=== PATIENT | male | born 1970 | race Caucasian/White ===

== ENCOUNTER 2021-07-26 13:41 | Inpatient (IN) | payer MEDICARE, MEDICAID, SELFPAY ==
[2021-07-26] VITALS (13 sets, daily range): BP systolic 84–116; BP diastolic 54–75; PULSE 87–114; RESP 13–24; TEMP 36.9–38.8; O2SAT 93–98; BMI 33.8
--- NOTE | ~2021-07-26 | CT_ITS ---
EXAMINATION: CT ABDOMEN AND PELVIS WITHOUT CONTRAST CLINICAL INFORMATION: History of right buttock abscess COMPARISON: CT pelvis 08/13/2020 TECHNIQUE: Multidetector volumetric imaging was performed from the superior aspect of the liver through the pubic symphysis. Sagittal and coronal reformatted images were obtained on the technologist's workstation. This CT examination was performed using dose optimization techniques as appropriate, variously including the following: *Automated exposure control *Adjustment of mA and/or kV according to patient size (this includes techniques or standardized protocols for targeted exams where dose is matched to indication/reason for exam; i.e. extremities or head) *Use of iterative reconstruction technique DLP: 1894 mGy-cm FINDINGS: LUNG BASES: Limited visualization. There may be central bronchial wall thickening in the left lower lobe. LIVER, GALLBLADDER, AND BILIARY TREE: The noncontrast liver is unremarkable in appearance. There is trace fat stranding along the inferior aspect of the liver. The gallbladder is unremarkable. No radiopaque calculi or obvious pericholecystic inflammatory changes. No evidence of biliary ductal dilation. PANCREAS: Unremarkable. SPLEEN: Unremarkable. ADRENAL GLANDS: Unremarkable. KIDNEYS AND URETERS: There are a few small nonobstructive calculi in the lower pole of the left kidney. They are approximately 0.3 to 0.4 cm in size. There is no hydronephrosis or hydroureter. No focal parenchymal thinning. No perinephric stranding. BLADDER: There is a tiny 0.3 cm calcification layering in the bladder. It may not have been present on the prior CT, although on the prior study the bladder was decompressed with a Vaz catheter in place, limiting evaluation. Currently, the bladder is moderately distended and is otherwise unremarkable. GASTROINTESTINAL TRACT: There is no abnormal small bowel dilation. There is no obvious pericolonic inflammatory change. There is moderate scattered stool in the colon, and a fair amount of stool within the rectum. The transverse rectal diameter is approximately 6 cm. There is no evidence of pneumoperitoneum. The appendix is unremarkable. ABDOMINAL WALL: No significant hernia is appreciated. LYMPH NODES: There is no evidence of bulky mesenteric or retroperitoneal lymphadenopathy. VASCULAR: The abdominal aorta is normal in caliber. PELVIC VISCERA: Detailed evaluation is limited by beam hardening artifact from bilateral femoral surgical hardware. No pelvic free fluid or fluid collection is seen. OSSEOUS STRUCTURES: The most peripheral portion of the right gluteal region is not within the [id number]. There may be a small focus of soft tissue stranding at the right hip reaching. There is no evidence of a deep focal fluid collection. No acute osseous abnormality is seen. Again seen is postsurgical changes within the bilateral proximal femurs with surgical hardware in place. There is extensive heterotopic ossification along the right femoral shaft. There are severe degenerative changes of both hips. Multilevel degenerative changes of the spine. CT/CT abdomen pelvis wo con IMPRESSION: No definite acute abnormality within the abdomen and pelvis. Trace fat stranding along the inferior aspect of the liver is of uncertain etiology or clinical significance. There does appear to be focal soft tissue stranding in the region of the right hip. This is fairly superficial. There is no evidence of a discrete deep fluid collection. Small nonobstructive calculi in the lower pole of the left kidney. There appears to be a small calculus within the bladder as well. Moderate rectal stool burden.
--- NOTE | ~2021-07-26 | CT_ITS ---
EXAMINATION: CT ANGIOGRAM NECK WITH CONTRAST CT ANGIOGRAM BRAIN WITH CONTRAST CLINICAL INFORMATION: Altered mental status. COMPARISON: Noncontrast head CT performed just earlier. TECHNIQUE: Test bolus sequences followed by intravenous administration 70 mL of Omnipaque 350. Helical imaging was performed in the axial plane from the thoracic inlet to the skull vertex. Delayed postcontrast imaging of the head was also performed. The data was processed at the space technologist workstation for generation of MIP sequences. Angled MIPs and volume rendered reformatted images were also generated at an offline 3D workstation. Stenoses are assessed in accordance with NASCET criteria unless otherwise indicated. This CT examination was performed using dose optimization techniques as appropriate, variously including the following: *Automated exposure control *Adjustment of mA and/or kV according to patient size (this includes techniques or standardized protocols for targeted exams where dose is matched to indication/reason for exam; i.e. extremities or head) *Use of iterative reconstruction technique DLP: 1909 mGy-cm FINDINGS: Head CT: On the postcontrast images, there is no intracranial hemorrhage, extra-axial collection, mass effect, or CT evidence of territorial infarction. There is chronic infarct within the right lateral basal ganglia and subinsular region in addition to chronic infarction in the right temporal lobe. There is ex vacuo dilatation of the right lateral ventricle inclusive of the frontal horn and temporal horn. Some asymmetric right-sided cerebral hemisphere volume loss is also present involving the frontal, parietal, and temporal lobes. Asymmetric right cerebellar volume loss is also present. No enhancing lesion is seen. The dural venous sinuses are normally opacified. There is chronic deformity of the nasal bones. Postoperative changes are seen involving the left frontozygomatic suture. Neck CTA: The aortic arch and great vessel origins are patent. The bilateral common and internal carotid arteries are patent. No significant stenosis is seen at the carotid bifurcations. The bilateral cervical ICA segments are both patent. The bilateral vertebral arteries are patent. Head CTA: The vertebrobasilar system is patent. The bilateral esthetician facialist are patent. The intracranial segments of the ICAs are patent. The ACAs are patent. The bilateral MCAs are patent and demonstrate symmetric collaterals. No intracranial aneurysm is seen. Non-vascular findings: The cervical soft tissues are within normal limits. The cervical spine demonstrates scoliotic curvature. CT/CT angio head neck IMPRESSION: CT head: No intracranial hemorrhage or large acute infarction. Chronic infarction seen within the right lateral basal ganglia and subinsular region in addition to the right temporal lobe. Ex vacuo dilatation of the right lateral ventricle. Chronic asymmetric atrophy of the right cerebral and cerebellar hemispheres. CTA neck: No hemodynamically significant stenosis in the major arteries of the neck. CTA head: No large vessel occlusion or significant stenosis within the intracranial circulation.
--- NOTE | ~2021-07-26 | CT_ITS ---
EXAMINATION: CT HEAD WITHOUT CONTRAST CLINICAL INFORMATION: Altered mental status COMPARISON: None TECHNIQUE: Contiguous axial imaging was performed from the skull base to vertex without intravenous administration of contrast. This CT examination was performed using dose optimization techniques as appropriate, variously including the following: *Automated exposure control *Adjustment of mA and/or kV according to patient size (this includes techniques or standardized protocols for targeted exams where dose is matched to indication/reason for exam; i.e. extremities or head) *Use of iterative reconstruction technique DLP: 1047 mGy-cm FINDINGS: Requested by PSA to review the CT head study at 1416 hours on July 26, 2021. There is hypodensity and volume loss in the right temporal lobe, with ex vacuo dilatation of the right ventricle temporal horn, having the appearance of the chronic infarct. Old infarct in the region of the right basal ganglia/external capsule, with ex vacuo dilatation of the right lateral ventricle. There is no evidence of acute intracranial hemorrhage. Question Subtle low attenuation and loss of bradford-white matter differentiation in the inferior left frontal lobe,, left parasagittal frontal lobe, the left parietotemporal lobe. Subtle loss of bradford-white matter differentiation in the left occipital lobe. Acute infarction in these regions cannot be excluded.. No abnormal mass effect or midline shift is seen. No extra-axial fluid collections are identified. Asymmetric prominence of the right ventricle.. No acute calvarial fracture. The mastoid air cells and visualized portions of the paranasal sinuses are well aerated. CT/CT head/brain wo con IMPRESSION: 1. Question subtle hypodensity with subtle loss of bradford-white matter differentiation in the left frontal lobe, left parietotemporal lobe, and in the left occipital lobe. Acute infarction cannot be excluded.. Recommend close clinical correlation and management.. Further evaluation with CTA head, MRI is recommended. 2. No evidence of acute intracranial hemorrhage. No extra-axial fluid collections. 3. 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 This critical result was discussed with NEVILLE Murray at 1424 hours on 07/26/2021 and it was ascertained that the content and urgency of the report was understood at the time of direct communication.
--- NOTE | ~2021-07-26 | XR_ITS ---
EXAMINATION: XR CHEST CLINICAL INFORMATION: Altered mental status. COMPARISON: X-ray 08/13/2020 TECHNIQUE: Frontal view of the chest was obtained. FINDINGS: Suboptimal positioning limits evaluation. Rotated positioning. Cardiac mediastinal silhouette is stable, allowing for difference in technique. Low lung volumes. There is left basilar/retrocardiac opacity. There is a hazy opacity right lung base. These findings could be related to overlapping densities versus airspace disease/effusion. XR/XR chest 1V IMPRESSION: Right basilar airspace opacity. Left basilar/retrocardiac airspace opacity. These findings could be related to overlapping densities, or represent airspace disease, effusion, or a combination of these. This can be further evaluated with frontal and lateral radiographs, or chest CT as clinically warranted.
--- NOTE | 2021-07-26 13:52 | ECG_ITS ---
Test Reason : ?STROKE Blood Pressure : / mmHG Vent. Rate : 107 BPM Atrial Rate : 107 BPM P-R Int : 166 ms QRS Dur : 084 ms QT Int : 352 ms P-R-T Axes : 012 -15 011 degrees QTc Int : 469 ms Sinus tachycardia Otherwise normal ECG When compared with ECG of 13-AUG-2020 10:20, No significant change was found Referred By: Benita Kelley Electronically Signed By:LEONORA GARCIA
--- NOTE | 2021-07-26 13:57 | ED.AMS ---
HPI - Altered Mental Status General Chief Complaint: Stroke Stated Complaint: stoke alert Time Seen by Provider: 07/26/21 13:48 Source: patient, EMS and old records reviewed Mode of arrival: EMS Limitations: altered mental status History of Present Illness MD complaint: altered mental status, confusion and decreased responsiveness Onset (ago): hour(s) (staff is not sure, stated he was lethargic and mumbling at 730am and got worse) Timing confirmed by: caregiver Consistency of symptoms: getting Worse Context: recent fever Associated symptoms: denies other symptoms Treatments prior to arrival: other (tylenol at 12pm) Related Data Allergies Allergy/AdvReac Type Severity Reaction Status Date / Time No Known Allergies* Allergy Uncoded 08/13/20 10:20 Review of Systems Review of Systems: ROS unable to be obtained due to altered mental status PMFSH Past Medical History Attestation statement: The following information was validated with the patient. Medical History (Updated 07/26/21 @ 16:09 by Benita Kelley DO) Abscess Chronic pain syndrome COPD (chronic obstructive pulmonary disease) Obesity Schizophrenia TBI (traumatic brain injury) Social History Social History (Updated 07/26/21 @ 14:18 by Benita Kelley DO) Patient Tobacco Use Status: Tobacco use Unknown Use of substances other than those prescribed or required for medical reasons: No Advance Directives: No Physical Exam Vital Signs: Vital Signs: Last Vital Signs Temp 100.1 F 07/26/21 16:19 Pulse 108 H 07/26/21 16:16 Resp 13 07/26/21 16:16 BP 102/70 07/26/21 16:16 Pulse Ox 97 07/26/21 16:16 Body Mass Index 33.8 Appearance: Somnolent, lethargic, smiles and says yes . Mild acute distress. Eyes: Pupils equal, round and reactive to light. ENT: Pharynx dry MM Neck: Normal inspection. Neck supple. CVS: tachycardic heart rate and rhythm. Pulses normal. Respiratory: No respiratory distress. Breath sounds decreased at bases Abdomen: Soft and non-tender. Skin: Skin warm and dry. Normal skin color. R posterior thigh and buttock erythema noted Extremities: No lower extremity edema. hyperpigmented dark areas on shins R BUTTOCKS WARM ERYTHEMATOUS TENDER AREA - NO MASS OR FLUCTUANCE FELT Neuro: Cannot fully participate in exam. No motor deficit. No sensory deficit. NIH Stroke Scale Internal: Initial- Upon Arrival Level of Consciousness: Not Alert; but arousable by minor stimulation Level of Consciousness Questions: Answers one question correctly Level of Consciousness Commands: Performs neither task correctly Best Gaze: Normal Visual: No visual loss Facial Palsy: Normal Motor Arm (Right): Drift Motor Arm (Left): Drift Motor Leg (Right): Drift Motor Leg (Left): Drift Limb Ataxia: Present in one limb Sensory: Normal Best Language: Mild to moderate aphasia Dysarthia: Mild to moderate dysarthria Extinction and Inattention: Visual, tactile, auditory, spatial, or personal inattention Score: 12 Course Course Course Narrative: NIH was very hard to perform at this time due to TBI - likely baseline findings R hip/buttock area concerning for cellulitis and given fevers started on empiric vancomycin and zosyn signed out to Dr. De La Rosa pending CTA 421pm MDM - Altered Mental Status MDM Narrative Medical decision making narrative: 50 yo male with TBI, schizophrenia, LOVE< COPD prior buttock abscess sent for fevers and tachycardia at [facility] - EMS called stroke alert but I cannot find any localizing or consistesnt focal deficits. His last known well ?730am but SNF staff is not sure because of this he is not a candidate for tPa. Labs, cultures, CXR, tylenol, CT scan of head/abdomen pelvis for infection, UA, CXR, empiric abx Lab Data Result diagrams: 07/26/21 14:56 07/26/21 14:56 Labs: Lab Results 07/26/21 07/26/21 07/26/21 Range/Units 13:55 14:42 14:50 WBC (4.8-10.8) X10*3/uL RBC (4.60-5.80) X10*6/uL Hgb (14.0-18.0) g/dl Hct (42-52) % MCV (80-98) fL MCH (27.0-33.0) pg MCHC (31.0-36.0) g/dl RDW (11.0-16.0) % Plt Count (160-400) X10*3/uL MPV (9.4-12.4) fL Immature Gran % (Auto) (0.0-0.4) % Neut % (Auto) (45-73) % Lymph % (Auto) (20-40) % [place] % (Auto) (2-11) % Eos % (Auto) (0-4) % Baso % (Auto) (0-2) % Lymph # (Auto) (1.2-4.9) X10*3/uL [place] # (Auto) (0.1-1.2) X10*3/uL Eos # (Auto) (0.0-0.4) X10*3/uL Baso # (Auto) (0.0-0.2) X10*3/uL Abs Immat Gran (auto) (0.00-0.03) X10*3/uL Absolute Neuts (auto) (2.0-8.3) X10*3/uL Absolute Nucleated RBC (0.0-0.012) X10*3/uL Nucleated RBC % (auto) (0.0-0.2) /100WBC PT 16.9 H (9.9-13.0) SEC Whole Blood PT 14.6 H (11.1-13.5) sec INR 1.5 H (0.9-1.1) Whole Blood INR 1.2 H (0.9-1.1) APTT 29.0 (24.1-38.0) SEC VBG pH (7.32-7.43) VBG pCO2 mmHg VBG pO2 mmHg VBG HCO3 (22-26) mmol/L VBG O2 Saturation % VBG Base Excess mmol/L Sodium (135-145) mmol/L Potassium (3.3-5.1) mmol/L Chloride (96-108) mmol/L Carbon Dioxide (22-29) mmol/L Anion Gap (12-20) BUN (9-16) mg/dL Creatinine (0.5-1.4) mg/dL Estim Creat Clear Calc Estimated GFR Random Glucose (60-115) mg/dL Lactic Acid (0.5-2.0) mmol/L Calcium (8.4-10.2) mg/dL Magnesium (1.6-2.6) mg/dL Total Bilirubin (0.0-1.0) mg/dL Direct Bilirubin (0.0-0.5) mg/dL AST (5-37) U/L ALT (0-40) U/L Alkaline Phosphatase (39-117) U/L Ammonia (13-55) umol/L Total Creatine Kinase (38-174) U/L Troponin I High Sens (<3.5-35.0) ng/L Total Protein (6.5-8.0) g/dL Albumin (3.5-5.0) g/dL COVID-19 ([facility]) Negative (Negative) COVID-19 Clin Com See Note 07/26/21 07/26/21 07/26/21 Range/Units 14:56 14:56 14:56 WBC 15.6 H (4.8-10.8) X10*3/uL RBC 5.42 (4.60-5.80) X10*6/uL Hgb 14.0 (14.0-18.0) g/dl Hct 43.4 (42-52) % MCV 80.1 (80-98) fL MCH 25.8 L (27.0-33.0) pg MCHC 32.3 (31.0-36.0) g/dl RDW 13.9 (11.0-16.0) % Plt Count 219 (160-400) X10*3/uL MPV 9.0 L (9.4-12.4) fL Immature Gran % (Auto) 0.4 (0.0-0.4) % Neut % (Auto) 84.6 H (45-73) % Lymph % (Auto) 7.1 L (20-40) % [place] % (Auto) 7.7 (2-11) % Eos % (Auto) 0.1 (0-4) % Baso % (Auto) 0.1 (0-2) % Lymph # (Auto) 1.1 L (1.2-4.9) X10*3/uL [place] # (Auto) 1.2 (0.1-1.2) X10*3/uL Eos # (Auto) 0.0 (0.0-0.4) X10*3/uL Baso # (Auto) 0.0 (0.0-0.2) X10*3/uL Abs Immat Gran (auto) 0.07 H (0.00-0.03) X10*3/uL Absolute Neuts (auto) 13.2 H (2.0-8.3) X10*3/uL Absolute Nucleated RBC 0.000 (0.0-0.012) X10*3/uL Nucleated RBC % (auto) 0.0 (0.0-0.2) /100WBC PT (9.9-13.0) SEC Whole Blood PT (11.1-13.5) sec INR (0.9-1.1) Whole Blood INR (0.9-1.1) APTT (24.1-38.0) SEC VBG pH (7.32-7.43) VBG pCO2 mmHg VBG pO2 mmHg VBG HCO3 (22-26) mmol/L VBG O2 Saturation % VBG Base Excess mmol/L Sodium 140 (135-145) mmol/L Potassium 4.2 (3.3-5.1) mmol/L Chloride 106 (96-108) mmol/L Carbon Dioxide 25 (22-29) mmol/L Anion Gap 13 (12-20) BUN 15 (9-16) mg/dL Creatinine 0.80 (0.5-1.4) mg/dL Estim Creat Clear Calc 143.5 Estimated GFR > 60 Random Glucose 112 (60-115) mg/dL Lactic Acid 1.7 (0.5-2.0) mmol/L Calcium 9.1 (8.4-10.2) mg/dL Magnesium 1.9 (1.6-2.6) mg/dL Total Bilirubin 0.6 (0.0-1.0) mg/dL Direct Bilirubin 0.3 (0.0-0.5) mg/dL AST 48 H (5-37) U/L ALT 57 H (0-40) U/L Alkaline Phosphatase 194 H (39-117) U/L Ammonia (13-55) umol/L Total Creatine Kinase 49 (38-174) U/L Troponin I High Sens (<3.5-35.0) ng/L Total Protein 7.2 (6.5-8.0) g/dL Albumin 4.1 (3.5-5.0) g/dL COVID-19 ([facility]) (Negative) COVID-19 Clin Com 07/26/21 07/26/21 07/26/21 Range/Units 14:56 14:56 15:04 WBC (4.8-10.8) X10*3/uL RBC (4.60-5.80) X10*6/uL Hgb (14.0-18.0) g/dl Hct (42-52) % MCV (80-98) fL MCH (27.0-33.0) pg MCHC (31.0-36.0) g/dl RDW (11.0-16.0) % Plt Count (160-400) X10*3/uL MPV (9.4-12.4) fL Immature Gran % (Auto) (0.0-0.4) % Neut % (Auto) (45-73) % Lymph % (Auto) (20-40) % [place] % (Auto) (2-11) % Eos % (Auto) (0-4) % Baso % (Auto) (0-2) % Lymph # (Auto) (1.2-4.9) X10*3/uL [place] # (Auto) (0.1-1.2) X10*3/uL Eos # (Auto) (0.0-0.4) X10*3/uL Baso # (Auto) (0.0-0.2) X10*3/uL Abs Immat Gran (auto) (0.00-0.03) X10*3/uL Absolute Neuts (auto) (2.0-8.3) X10*3/uL Absolute Nucleated RBC (0.0-0.012) X10*3/uL Nucleated RBC % (auto) (0.0-0.2) /100WBC PT (9.9-13.0) SEC Whole Blood PT (11.1-13.5) sec INR (0.9-1.1) Whole Blood INR (0.9-1.1) APTT (24.1-38.0) SEC VBG pH 7.38 (7.32-7.43) VBG pCO2 43 mmHg VBG pO2 54 mmHg VBG HCO3 26 (22-26) mmol/L VBG O2 Saturation 84.0 % VBG Base Excess 0.7 mmol/L Sodium (135-145) mmol/L Potassium (3.3-5.1) mmol/L Chloride (96-108) mmol/L Carbon Dioxide (22-29) mmol/L Anion Gap (12-20) BUN (9-16) mg/dL Creatinine (0.5-1.4) mg/dL Estim Creat Clear Calc Estimated GFR Random Glucose (60-115) mg/dL Lactic Acid (0.5-2.0) mmol/L Calcium (8.4-10.2) mg/dL Magnesium (1.6-2.6) mg/dL Total Bilirubin (0.0-1.0) mg/dL Direct Bilirubin (0.0-0.5) mg/dL AST (5-37) U/L ALT (0-40) U/L Alkaline Phosphatase (39-117) U/L Ammonia 37 (13-55) umol/L Total Creatine Kinase (38-174) U/L Troponin I High Sens 4.8 (<3.5-35.0) ng/L Total Protein (6.5-8.0) g/dL Albumin (3.5-5.0) g/dL COVID-19 ([facility]) (Negative) COVID-19 Clin Com ECG Data ECG #1: Attestation: I personally reviewed and interpreted this ECG as follows: ECG interpretation date: 07/26/21 ECG interpretation time: 15:35 Interpretation: Rate: 107 Rhythm: sinus tachycardia [place]: left Normal P waves. Normal JASON. Normal QRS complex. ST T wave : nonspecific, no FOX qTC: normal prior studies: no acute ischemia The study has been interpreted contemporaneously by me. . Discharge Plan Discharge Clinical Impression: Fever Qualifiers: Fever type: unspecified Qualified Code(s): R50.9 - Fever, unspecified Cellulitis Qualifiers: Site of cellulitis: buttock Qualified Code(s): L03.317 - Cellulitis of buttock Pneumonia Qualifiers: Pneumonia type: due to unspecified organism Laterality: bilateral Lung location: unspecified part of lung Qualified Code(s): J18.9 - Pneumonia, unspecified organism Patient Disposition: Admitted As Inpatient
[2021-07-26 13:58] LABS: Prothrombin Time Whole Bld POC 14.6 sec (11.1-13.5); ~PT, ~INR - Anti Coag Clinic 1.2 (0.9-1.1)
[2021-07-26] MEDS: Acetaminophen 325 MG TABLET 650 MG PO (15:00)
[2021-07-26] MEDS: 0.9 % Sodium Chloride 1,000 ML 999 ML IVCONT ×2 (15:01→18:29)
[2021-07-26] MEDS: 0.9 % Sodium Chloride 1,000 ML 999 ML IV (15:02)
[2021-07-26 15:03] LABS: MANUAL DIFF FLAG NO
[2021-07-26 15:07] LABS: Basophils Percent Auto 0.1 % (0-2); Eosinophils Percent Auto 0.1 % (0-4); Hematocrit 43.4 % (42-52); Imm Gran Abs Auto 0.07 X10*3/uL (0.00-0.03); Imm Gran Pct Auto 0.4 % (0.0-0.4); Lymphocytes Absolute Auto 1.1 X10*3/uL (1.2-4.9); Lymphocytes Percent Auto 7.1 % (20-40); Mean Corpuscular HGB Conc 32.3 g/dl (31.0-36.0); Mean Corpuscular Hemoglobin 25.8 pg (27.0-33.0); Mean Corpuscular Volume 80.1 fL (80-98); Monocytes Absolute Auto 1.2 X10*3/uL (0.1-1.2); Monocytes Percent Auto 7.7 % (2-11); Neutrophils Absolute Auto 13.2 X10*3/uL (2.0-8.3); Neutrophils Percent Auto 84.6 % (45-73); Platelet Count 219 X10*3/uL (160-400); Red Blood Count 5.42 X10*6/uL (4.60-5.80); Red Cell Distribution Width 13.9 % (11.0-16.0); White Blood Count 15.6 X10*3/uL (4.8-10.8)
[2021-07-26 15:10] LABS: VBG Base Excess 0.7 mmol/L; VBG HCO3 26 mmol/L (22-26); VBG pCO2 43 mmHg; VBG pH 7.38 (7.32-7.43); VBG pO2 54 mmHg
[2021-07-26 15:10] LABS: Venous Blood Gas Refer to POC result
[2021-07-26] MEDS: Piperacillin Sodium/Tazobactam 3.375 GM in 0.9 % Sodium Chloride 50 ML IV (15:10)
[2021-07-26 15:11] LABS: INTERNATIONAL NORM RATIO 1.5 (0.9-1.1); Prothrombin Time 16.9 SEC (9.9-13.0)
[2021-07-26 15:19] LABS: Ammonia 37 umol/L (13-55)
[2021-07-26 15:22] LABS: Lactic Acid 1.7 mmol/L (0.5-2.0)
[2021-07-26 15:28] LABS: Alanine Aminotransferase 57 U/L (0-40); Albumin Level 4.1 g/dL (3.5-5.0); Alkaline Phosphatase 194 U/L (39-117); Anion Gap 13 (12-20); Aspartate Amino Transferase 48 U/L (5-37); Bilirubin Direct 0.3 mg/dL (0.0-0.5); Bilirubin Total 0.6 mg/dL (0.0-1.0); Blood Urea Nitrogen 15 mg/dL (9-16); Calcium 9.1 mg/dL (8.4-10.2); Carbon Dioxide 25 mmol/L (22-29); Chloride 106 mmol/L (96-108); Creatinine Clr Calc Pharmacy 143.5; Estimated Glomerular Filt Rate > 60; Glucose Random 112 mg/dL (60-115); Magnesium 1.9 mg/dL (1.6-2.6); Potassium 4.2 mmol/L (3.3-5.1); Sodium 140 mmol/L (135-145); Total Protein 7.2 g/dL (6.5-8.0)
[2021-07-26 15:32] LABS: Troponin-I High Sensitivity 4.8 ng/L (<3.5-35.0)
[2021-07-26] MEDS: vancomycin HCL 1,500 MG in 0.9 % Sodium Chloride 500 ML 333.33 MG IV (15:40)
[2021-07-26 15:43] LABS: COVID-19 Test Negative (Negative); IDNOW Serial# 9DD0AD1C
--- NOTE | 2021-07-26 16:18 | PC.NURSE ---
pt R hip.thigh warm and red pt rectal temp 101.8 given PO tylenol rectal temp at 1615 down to 100.1
[2021-07-26] MEDS: iohexoL 350 MG/ML 100 ML INFUS..BTL IV (17:30)
--- NOTE | 2021-07-26 18:17 | PC.NURSE ---
Dr Dean aware of bp 84/60
--- NOTE | 2021-07-26 19:18 | PC.NURSE ---
pt incontinent of urine and stool. 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
--- NOTE | 2021-07-26 20:35 | PM.IMHP ---
History of Present Illness Date of Service: 07/26/21 Chief Complaint: Altered mental status This is a 50-year-old male with past medical history of COPD, schizophrenia, TBI, obesity, chronic pain syndrome who [facility] and is chronically bedbound per report, presents to the hospital after staff at [facility] found him to be less responsive and confused. Patient is a poor historian and is not answering questions appropriately. When asked about pain he points to his right hip. He answers no to any questions involving any other symptoms. Therefore history is obtained mostly from ED physician. According to the ED physician patient underwent workup in the ED and was found to be febrile with a temperature of 101.8, patient also developed hypotension with blood pressure dropping to 84/60. Patient was started on IV antibiotics and resuscitated with IV fluids. Workup revealed cellulitis of the left hip and bilateral pneumonia with negative COVID test. Flu vitals initially showed a temp of 101.8?, heart rate of 114, respiratory rate of 20, blood pressure initially was 116/70 that dropped to 84/60, satting 94% on room air Labs revealed WBC count of 15.6, AST of 48, ALT of 57, alk phos of 194, COVID-19 negative. No definite acute abnormality within the abdomen and pelvis, focal soft tissue stranding in the region of the right hip. Fairly superficial with no evidence of discrete deep fluid collection. Chest x-ray shows right basilar airspace opacity as well as left basal are airspace opacity. Head and neck CT angiogram shows no intracranial hemorrhage or large acute infarction, chronic infarction seen within the right lateral basal ganglia and sub insular region in addition to the right temporal lobe. No hemodynamic significant stenosis in the major arteries of the neck. Past medical history per EMR Review of Systems Review of Systems: Yes Unobtainable due to mental status [facility] Medical History Abscess Chronic pain syndrome COPD (chronic obstructive pulmonary disease) Obesity Schizophrenia TBI (traumatic brain injury) Social History Patient Tobacco Use Status: Tobacco use Unknown Use of substances other than those prescribed or required for medical reasons: No Advance Directives: No Meds Allergies Allergy/AdvReac Type Severity Reaction Status Date / Time No Known Allergies* Allergy Uncoded 08/13/20 10:20 Home Medications Medication Instructions Recorded Confirmed Last Taken Type acetaminophen 325 mg tablet 650 mg PO Q6H PRN 07/26/21 07/26/21 Unknown History (Tylenol) apixaban 2.5 mg tablet 2.5 mg PO BID 07/26/21 07/26/21 Unknown History atorvastatin 20 mg tablet (Lipitor) 20 mg PO BEDTIME 07/26/21 07/26/21 Unknown History benztropine 0.5 mg tablet 0.5 mg PO BID 07/26/21 07/26/21 Unknown History bisacodyl 10 mg rectal suppository 10 mg IA DAILY PRN 07/26/21 07/26/21 Unknown History diazepam 2 mg tablet 1 mg PO BID 07/26/21 07/26/21 Unknown History gabapentin 300 mg capsule 300 mg PO TID 07/26/21 07/26/21 Unknown History haloperidol 5 mg tablet 15 mg PO TID 07/26/21 07/26/21 Unknown History ibuprofen 200 mg tablet 200 mg PO Q6H PRN 07/26/21 07/26/21 Unknown History maltodextrin 1 ea PO 07/26/21 Unknown History metronidazole 0.75 % topical cream appl TOPICAL 07/26/21 Unknown History multivitamin 1 tab PO DAILY 07/26/21 07/26/21 Unknown History omeprazole 20 mg capsule,delayed 20 mg PO DAILY 07/26/21 07/26/21 Unknown History release oxcarbazepine 150 mg tablet 150 mg PO BID 07/26/21 07/26/21 Unknown History oxybutynin chloride 5 mg tablet 5 mg PO BID 07/26/21 07/26/21 Unknown History propranolol 10 mg tablet 10 mg PO TID 07/26/21 07/26/21 Unknown History sennosides 8.6 mg tablet (senna) 8.6 mg PO DAILY PRN 07/26/21 07/26/21 Unknown History Physical Exam Vital Signs and Narrative: Vital Signs: Last Vital Signs Temp 98.5 F 07/26/21 19:28 Pulse 96 07/26/21 19:28 Resp 14 07/26/21 19:28 BP 92/60 07/26/21 19:28 Pulse Ox 96 07/26/21 19:28 Body Mass Index 33.8 Const: Other: confused General: no acute distress Eyes: General: appearance normal, both eyes and all related structures Resp: Effort & Inspection: normal respiratory effort Cardio: Rate: regular rate Rhythm: regular rhythm GI: Palpation (GI): Soft to palpation Auscultation: normal bowel sounds Skin: Other: left pelvic regiuon erythema, warmth, tenderness, well healed scar extends frok hip to mid leg laterally Neuro: Other: Confused Extrem: Other: Poor hygiene of his feet, right hip scar that is well-healed General: Yes normal to inspection and Yes no pedal edema Results Labs CBC and Chem 7: 07/26/21 14:56 07/26/21 14:56 Labs: Laboratory Results - last 24 hr 07/26/21 07/26/21 07/26/21 13:55 14:42 14:50 MCV MCH MCHC RDW Plt Count MPV Immature Gran % (Auto) Neut % (Auto) Lymph % (Auto) [place] % (Auto) Eos % (Auto) Baso % (Auto) Lymph # (Auto) [place] # (Auto) Eos # (Auto) Baso # (Auto) Abs Immat Gran (auto) Absolute Neuts (auto) Absolute Nucleated RBC Nucleated RBC % (auto) PT 16.9 H Whole Blood PT 14.6 H INR 1.5 H Whole Blood INR 1.2 H APTT 29.0 VBG pH VBG pCO2 VBG pO2 VBG HCO3 VBG O2 Saturation VBG Base Excess Anion Gap Estim Creat Clear Calc Estimated GFR Random Glucose Lactic Acid Calcium Magnesium Total Bilirubin Direct Bilirubin AST ALT Alkaline Phosphatase Ammonia Total Creatine Kinase Troponin I High Sens Total Protein Albumin COVID-19 ([facility]) Negative COVID-19 Clin Com See Note 07/26/21 07/26/21 07/26/21 14:56 14:56 14:56 MCV 80.1 MCH 25.8 L MCHC 32.3 RDW 13.9 Plt Count 219 MPV 9.0 L Immature Gran % (Auto) 0.4 Neut % (Auto) 84.6 H Lymph % (Auto) 7.1 L [place] % (Auto) 7.7 Eos % (Auto) 0.1 Baso % (Auto) 0.1 Lymph # (Auto) 1.1 L [place] # (Auto) 1.2 Eos # (Auto) 0.0 Baso # (Auto) 0.0 Abs Immat Gran (auto) 0.07 H Absolute Neuts (auto) 13.2 H Absolute Nucleated RBC 0.000 Nucleated RBC % (auto) 0.0 PT Whole Blood PT INR Whole Blood INR APTT VBG pH VBG pCO2 VBG pO2 VBG HCO3 VBG O2 Saturation VBG Base Excess Anion Gap 13 Estim Creat Clear Calc 143.5 Estimated GFR > 60 Random Glucose 112 Lactic Acid 1.7 Calcium 9.1 Magnesium 1.9 Total Bilirubin 0.6 Direct Bilirubin 0.3 AST 48 H ALT 57 H Alkaline Phosphatase 194 H Ammonia Total Creatine Kinase 49 Troponin I High Sens Total Protein 7.2 Albumin 4.1 COVID-19 ([facility]) COVID-19 Clin Com 07/26/21 07/26/21 07/26/21 14:56 14:56 15:04 MCV MCH MCHC RDW Plt Count MPV Immature Gran % (Auto) Neut % (Auto) Lymph % (Auto) [place] % (Auto) Eos % (Auto) Baso % (Auto) Lymph # (Auto) [place] # (Auto) Eos # (Auto) Baso # (Auto) Abs Immat Gran (auto) Absolute Neuts (auto) Absolute Nucleated RBC Nucleated RBC % (auto) PT Whole Blood PT INR Whole Blood INR APTT VBG pH 7.38 VBG pCO2 43 VBG pO2 54 VBG HCO3 26 VBG O2 Saturation 84.0 VBG Base Excess 0.7 Anion Gap Estim Creat Clear Calc Estimated GFR Random Glucose Lactic Acid Calcium Magnesium Total Bilirubin Direct Bilirubin AST ALT Alkaline Phosphatase Ammonia 37 Total Creatine Kinase Troponin I High Sens 4.8 Total Protein Albumin COVID-19 ([facility]) COVID-19 Clin Com ECG Interpretation: Sinus tachycardia with a heart rate of 107, no other ST T wave changes Imaging Radiologist's Impressions: Impressions Head CT 07/26/21 13:48 IMPRESSION: 1. Question subtle hypodensity with subtle loss of bradford-white matter differentiation in the left frontal lobe, left parietotemporal lobe, and in the left occipital lobe. Acute infarction cannot be excluded.. Recommend close clinical correlation and management.. Further evaluation with CTA head, MRI is recommended. 2. No evidence of acute intracranial hemorrhage. No extra-axial fluid collections. 3. 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 This critical result was discussed with NEVILLE Murray at 1424 hours on 07/26/2021 and it was ascertained that the content and urgency of the report was understood at the time of direct communication. Abdomen/Pelvis CT 07/26/21 13:51 IMPRESSION: No definite acute abnormality within the abdomen and pelvis. Trace fat stranding along the inferior aspect of the liver is of uncertain etiology or clinical significance. There does appear to be focal soft tissue stranding in the region of the right hip. This is fairly superficial. There is no evidence of a discrete deep fluid collection. Small nonobstructive calculi in the lower pole of the left kidney. There appears to be a small calculus within the bladder as well. Moderate rectal stool burden. Chest X-Ray 07/26/21 13:52 IMPRESSION: Right basilar airspace opacity. Left basilar/retrocardiac airspace opacity. These findings could be related to overlapping densities, or represent airspace disease, effusion, or a combination of these. This can be further evaluated with frontal and lateral radiographs, or chest CT as clinically warranted. Head/Neck CTA 07/26/21 15:47 IMPRESSION: CT head: No intracranial hemorrhage or large acute infarction. Chronic infarction seen within the right lateral basal ganglia and subinsular region in addition to the right temporal lobe. Ex vacuo dilatation of the right lateral ventricle. Chronic asymmetric atrophy of the right cerebral and cerebellar hemispheres. CTA neck: No hemodynamically significant stenosis in the major arteries of the neck. CTA head: No large vessel occlusion or significant stenosis within the intracranial circulation. Assessment and Plan (1) Sepsis: Status: Acute (2) Cellulitis: Qualifiers: Site of cellulitis: buttock Qualified Code(s): L03.317 - Cellulitis of buttock Status: Acute (3) Pneumonia: Qualifiers: Laterality: bilateral Lung location: unspecified part of lung Pneumonia type: due to unspecified organism Qualified Code(s): J18.9 - Pneumonia, unspecified organism Status: Acute 50-year-old male with past medical history of TBI as well as schizophrenia who comes to the hospital with increased confusion, less responsiveness found to be septic # sepsis - febrile, tachycardia, leukocytosis, hypotensive - most likely multifactorial secondary to pneumonia as well as cellulitis of the left hip - patient received sepsis fluid, was given IV antibiotics in the ED - will continue IV antibiotics - follow cultures # community-acquired pneumonia - bilateral pneumonia with negative COVID - no hypoxia or tachypnea - will start him on IV antibiotics - follow cultures # cellulitis of the right hip - erythema, tenderness, warmth of the right hip - IV antibiotics as above - follow cultures in regards to his other meds, i called [facility] to get more info about pt, his past medical history and why his on the medications including apixaban and according to the nurse that knows him she does not have much information about him and unable to help me At this time will continue his apixaban as there is no contraindication to it as well as his other medications Quality Stroke Does the patient have a stroke diagnosis?: No VTE Prior VTE?: No VTE Risk Level:: Medical - moderate - high VTE Device Contraindication: Treatment Not Indicated VTE Drug Contraindication: N/A - Med Ordered
[2021-07-26] MEDS: OXcarbazepine 150 MG TABLET PO (22:03)
[2021-07-26] MEDS: HaloperidoL 5 MG TABLET 15 MG PO (22:03)
[2021-07-26] MEDS: Atorvastatin Calcium 20 MG TABLET PO (22:03)
[2021-07-26] MEDS: diazePAM 2 MG TABLET 1 MG PO (22:04)
[2021-07-26] MEDS: Benztropine Mesylate 0.5 MG TABLET PO (22:04)
[2021-07-26] MEDS: Gabapentin 300 MG CAPSULE PO (22:04)
[2021-07-26] MEDS: Apixaban 2.5 MG TABLET PO (22:04)
[2021-07-26] MEDS: Propranolol HCL 10 MG TABLET PO (22:04)
[2021-07-26] MEDS: cefTRIAXone sodium 1 GM in 0.9 % Sodium Chloride 50 ML IV (22:37)
[2021-07-26] MEDS: Azithromycin 500 MG in 0.9 % Sodium Chloride 250 ML 125 MG IV (23:33)
[2021-07-27] VITALS (10 sets, daily range): BP systolic 113–137; BP diastolic 55–100; PULSE 96–111; RESP 16–19; TEMP 36.4–36.8; O2SAT 95–98
--- NOTE | 2021-07-27 01:54 | PC.NURSE ---
Pt found in bed, incontinent of a large liquid BM. Per staff, pt has been having large loose BMs since his arrival. This RN contacting hospitalist regarding stool sample. This RN at bedside, providing pt with chava care and a complete bed change. Stool sample obtained and sent. Awaiting room assignment.
[2021-07-27 02:59] LABS: CDiff Gene PCR NEGATIVE (Negative)
[2021-07-27] MEDS: Omeprazole 20 MG CAPSULE.DR PO (05:49)
--- NOTE | 2021-07-27 05:52 | PC.NURSE ---
Pt resting in bed, medicated per JAN. Pt noted to be clean/dry at this time, provided with warm blankets per request. VSS at this time, awaiting bed assignment.
[2021-07-27] MEDS: 0.9 % Sodium Chloride Flush 3 ML SYRINGE IVFLUSH ×3 (08:45→23:37)
[2021-07-27 08:46] LABS: MANUAL DIFF FLAG NO
[2021-07-27 08:47] LABS: Basophils Percent Auto 0.1 % (0-2); Eosinophils Absolute Auto 0.3 X10*3/uL (0.0-0.4); Eosinophils Percent Auto 2.7 % (0-4); Hematocrit 38.4 % (42-52); Hemoglobin 12.2 g/dl (14.0-18.0); Imm Gran Abs Auto 0.03 X10*3/uL (0.00-0.03); Imm Gran Pct Auto 0.3 % (0.0-0.4); Lymphocytes Absolute Auto 0.9 X10*3/uL (1.2-4.9); Lymphocytes Percent Auto 9.5 % (20-40); Mean Corpuscular HGB Conc 31.8 g/dl (31.0-36.0); Mean Corpuscular Hemoglobin 25.7 pg (27.0-33.0); Mean Corpuscular Volume 80.8 fL (80-98); Monocytes Absolute Auto 0.5 X10*3/uL (0.1-1.2); Monocytes Percent Auto 5.7 % (2-11); Neutrophils Absolute Auto 7.5 X10*3/uL (2.0-8.3); Neutrophils Percent Auto 81.7 % (45-73); Platelet Count 175 X10*3/uL (160-400); Red Blood Count 4.75 X10*6/uL (4.60-5.80); Red Cell Distribution Width 13.8 % (11.0-16.0); White Blood Count 9.2 X10*3/uL (4.8-10.8)
[2021-07-27] MEDS: OXcarbazepine 150 MG TABLET PO ×2 (08:50→20:06)
[2021-07-27] MEDS: HaloperidoL 5 MG TABLET 15 MG PO ×3 (08:50→20:05)
[2021-07-27] MEDS: diazePAM 2 MG TABLET 1 MG PO ×2 (08:50→20:05)
[2021-07-27] MEDS: Apixaban 2.5 MG TABLET PO ×2 (08:50→20:07)
[2021-07-27] MEDS: Propranolol HCL 10 MG TABLET PO ×3 (08:51→20:06)
[2021-07-27] MEDS: Multivitamin TABLET 1 TAB PO (08:51)
[2021-07-27] MEDS: Gabapentin 300 MG CAPSULE PO ×3 (08:52→20:07)
--- NOTE | 2021-07-27 09:00 | PC.NURSE ---
pt alert, oriented to person and place, vss. reports 10/10 aching back pain. no c/o headache/dizziness/sob/nausea. pt requests urinal, breakfast given, meds given as documented. pt resting quietly, no apparent distress noted. awaiting bed assignment. will conitnue to monitor.
[2021-07-27 09:02] LABS: Anion Gap 11 (12-20); Blood Urea Nitrogen 8 mg/dL (9-16); Calcium 8.2 mg/dL (8.4-10.2); Carbon Dioxide 23 mmol/L (22-29); Chloride 110 mmol/L (96-108); Creatinine Clr Calc Pharmacy 188.2; Estimated Glomerular Filt Rate > 60; Glucose Random 135 mg/dL (60-115); Potassium 3.9 mmol/L (3.3-5.1); Sodium 140 mmol/L (135-145)
[2021-07-27] MEDS: Benztropine Mesylate 0.5 MG TABLET PO ×2 (09:24→20:05)
--- NOTE | 2021-07-27 11:20 | PC.NURSE ---
Pt alert, vss. Pt assigned a bed, he was made aware of bed assignment, this law writer gave report to COLBY Kingsley. Pt transported by embedded software design engineer.
--- NOTE | 2021-07-27 11:57 | PC.NURSE ---
Pt just arrived to unit, skin assessment done,no breakdown, lower legs dusky, scaly. Wound nurse Reyna saw patient. Will order something for his feet.
--- NOTE | 2021-07-27 11:57 | HO.PM.IMPN ---
Subjective Subjective Date of Service: 07/27/21 Interval History: Patient awake, asking if this is a new day, complaining of pain right hip, otherwise appears comfortable, no other issues since admit. Review of Systems General no headache, no dizziness, no fever chills. CVS no chest pain, no palpitation. Respiratory no cough, no sob. Gastrointestinal no nausea, no vomiting, no abdominal pain Physical Exam Vital Signs: Vital Signs: Last Vital Signs Temp 98.1 F 07/27/21 00:00 Pulse 104 H 07/27/21 08:58 Resp 16 07/27/21 08:58 BP 113/70 07/27/21 08:58 Pulse Ox 98 07/27/21 08:58 Body Mass Index 33.8 General resting comfortably in no acute distress. Neck no JVD. CVS regular rate rhythm, Respiratory lungs clear to auscultation, no respiratory distress, no wheeze, no rhonchi. Gastrointestinal abdomen soft, nontender, bowel sounds audible Extremities no edema. Right hip significant redness extending from hip to mid thigh, no fluctuation, no in duration, incision from prior hip surgery is clean and dry Skin no rash Objective Data Active Medications Acetaminophen (Acetaminophen 325 Mg Tablet) 650 mg PO Q6H PRN PRN Reason: Pain, Mild (Pain Scale 1-3) Apixaban (Apixaban 2.5 Mg Tablet) 2.5 mg PO BID [facility] Last Admin: 07/27/21 08:50 Dose: 2.5 mg Documented by: SHAY Atorvastatin Calcium (Atorvastatin Calcium 20 Mg Tablet) 20 mg PO BEDTIME [facility] Last Admin: 07/26/21 22:03 Dose: 20 mg Documented by: BRITTANY Benztropine Mesylate (Benztropine Mesylate 0.5 Mg Tablet) 0.5 mg PO BID [facility] Last Admin: 07/27/21 09:24 Dose: 0.5 mg Documented by: SHAY Diazepam (Diazepam 2 Mg Tablet) 1 mg PO BID [facility] Last Admin: 07/27/21 08:50 Dose: 1 mg Documented by: SHAY Docusate Sodium (Docusate Sodium 100 Mg Capsule) 100 mg PO DAILY PRN PRN Reason: Constipation Gabapentin (Gabapentin 300 Mg Capsule) 300 mg PO TID [facility] Last Admin: 07/27/21 08:52 Dose: 300 mg Documented by: SHAY Haloperidol (Haloperidol 5 Mg Tablet) 15 mg PO TID [facility] Last Admin: 07/27/21 08:50 Dose: 15 mg Documented by: SHAY Ceftriaxone Sodium 1 gm/ (Sodium Chloride) 50 mls @ 100 mls/hr IV Q24H [facility] Last Infusion: 07/26/21 23:35 Dose: 0 mls/hr Documented by: BRITTANY Azithromycin 500 mg/ Sodium (Chloride) 250 mls @ 125 mls/hr IV Q24H [facility] Last Infusion: 07/27/21 01:35 Dose: 0 mls/hr Documented by: CLAIR Multivitamins/Vitamin C (Multivitamin Tablet) 1 tab PO DAILY [facility] Last Admin: 07/27/21 08:51 Dose: 1 tab Documented by: SHAY Omeprazole (Omeprazole 20 Mg Capsule.Dr) 20 mg PO DAILY@0630 [facility] Last Admin: 07/27/21 05:49 Dose: 20 mg Documented by: CLAIR Ondansetron HCl (Ondansetron Hcl 4 Mg/2 Ml Vial) 4 mg IVPUSH Q8H PRN PRN Reason: Nausea and Vomiting Oxcarbazepine (Oxcarbazepine 150 Mg Tablet) 150 mg PO BID [facility] Last Admin: 07/27/21 08:50 Dose: 150 mg Documented by: SHAY Oxybutynin Chloride (Oxybutynin Chloride Er 5 Mg Tab.Er.24) 10 mg PO DAILY [facility] Last Admin: 07/27/21 08:49 Dose: 10 mg Documented by: SHAY Propranolol HCl (Propranolol Hcl 10 Mg Tablet) 10 mg PO TID [facility]; Protocol Last Admin: 07/27/21 08:51 Dose: 10 mg Documented by: SHAY Senna (Sennosides 8.6 Mg Tablet) 8.6 mg PO DAILY PRN PRN Reason: Constipation Sodium Chloride (0.9 % Sodium Chloride Flush 3 Ml Syringe) 3 ml IVFLUSH QSHIFT [facility] Last Admin: 07/27/21 08:45 Dose: 3 ml Documented by: SHAY Labs CBC & Chem 7: 07/27/21 08:34 07/27/21 08:34 Labs: Laboratory Results - last 24 hr 07/26/21 07/26/21 07/26/21 13:55 14:42 14:50 MCV MCH MCHC RDW Plt Count MPV Immature Gran % (Auto) Neut % (Auto) Lymph % (Auto) Crowley % (Auto) Eos % (Auto) Baso % (Auto) Lymph # (Auto) Crowley # (Auto) Eos # (Auto) Baso # (Auto) Abs Immat Gran (auto) Absolute Neuts (auto) Absolute Nucleated RBC Nucleated RBC % (auto) PT 16.9 H Whole Blood PT 14.6 H INR 1.5 H Whole Blood INR 1.2 H APTT 29.0 VBG pH VBG pCO2 VBG pO2 VBG HCO3 VBG O2 Saturation VBG Base Excess Anion Gap Estim Creat Clear Calc Estimated GFR Random Glucose Lactic Acid Calcium Magnesium Total Bilirubin Direct Bilirubin AST ALT Alkaline Phosphatase Ammonia Total Creatine Kinase Troponin I High Sens Total Protein Albumin C. difficile Tox B Gene COVID-19 ([facility]) Negative COVID-Match Clin Com See Note 07/26/21 07/26/21 07/26/21 14:56 14:56 14:56 MCV 80.1 MCH 25.8 L MCHC 32.3 RDW 13.9 Plt Count 219 MPV 9.0 L Immature Gran % (Auto) 0.4 Neut % (Auto) 84.6 H Lymph % (Auto) 7.1 L Crowley % (Auto) 7.7 Eos % (Auto) 0.1 Baso % (Auto) 0.1 Lymph # (Auto) 1.1 L Crowley # (Auto) 1.2 Eos # (Auto) 0.0 Baso # (Auto) 0.0 Abs Immat Gran (auto) 0.07 H Absolute Neuts (auto) 13.2 H Absolute Nucleated RBC 0.000 Nucleated RBC % (auto) 0.0 PT Whole Blood PT INR Whole Blood INR APTT VBG pH VBG pCO2 VBG pO2 VBG HCO3 VBG O2 Saturation VBG Base Excess Anion Gap 13 Estim Creat Clear Calc 143.5 Estimated GFR > 60 Random Glucose 112 Lactic Acid 1.7 Calcium 9.1 Magnesium 1.9 Total Bilirubin 0.6 Direct Bilirubin 0.3 AST 48 H ALT 57 H Alkaline Phosphatase 194 H Ammonia Total Creatine Kinase 49 Troponin I High Sens Total Protein 7.2 Albumin 4.1 C. difficile Tox B Gene COVID-19 ([facility]) COVID-Match Clin Com 07/26/21 07/26/21 07/26/21 14:56 14:56 15:04 MCV MCH MCHC RDW Plt Count MPV Immature Gran % (Auto) Neut % (Auto) Lymph % (Auto) Crowley % (Auto) Eos % (Auto) Baso % (Auto) Lymph # (Auto) Crowley # (Auto) Eos # (Auto) Baso # (Auto) Abs Immat Gran (auto) Absolute Neuts (auto) Absolute Nucleated RBC Nucleated RBC % (auto) PT Whole Blood PT INR Whole Blood INR APTT VBG pH 7.38 VBG pCO2 43 VBG pO2 54 VBG HCO3 26 VBG O2 Saturation 84.0 VBG Base Excess 0.7 Anion Gap Estim Creat Clear Calc Estimated GFR Random Glucose Lactic Acid Calcium Magnesium Total Bilirubin Direct Bilirubin AST ALT Alkaline Phosphatase Ammonia 37 Total Creatine Kinase Troponin I High Sens 4.8 Total Protein Albumin C. difficile Tox B Gene COVID-19 ([facility]) COVID-19 [employer] Com 07/27/21 07/27/21 07/27/21 01:51 08:34 08:34 MCV 80.8 MCH 25.7 L MCHC 31.8 RDW 13.8 Plt Count 175 MPV 9.0 L Immature Gran % (Auto) 0.3 Neut % (Auto) 81.7 H Lymph % (Auto) 9.5 L Crowley % (Auto) 5.7 Eos % (Auto) 2.7 Baso % (Auto) 0.1 Lymph # (Auto) 0.9 L Crowley # (Auto) 0.5 Eos # (Auto) 0.3 Baso # (Auto) 0.0 Abs Immat Gran (auto) 0.03 Absolute Neuts (auto) 7.5 Absolute Nucleated RBC 0.000 Nucleated RBC % (auto) 0.0 PT Whole Blood PT INR Whole Blood INR APTT VBG pH VBG pCO2 VBG pO2 VBG HCO3 VBG O2 Saturation VBG Base Excess Anion Gap 11 L Estim Creat Clear Calc 188.2 Estimated GFR > 60 Random Glucose 135 H Lactic Acid Calcium 8.2 L D Magnesium Total Bilirubin Direct Bilirubin AST ALT Alkaline Phosphatase Ammonia Total Creatine Kinase Troponin I High Sens Total Protein Albumin C. difficile Tox B Gene NEGATIVE COVID-19 ([facility]) COVID-19 Clin Com Assessment and Plan (1) Sepsis: Status: Acute (2) Fever: Status: Acute (3) Cellulitis: Status: Acute (4) Pneumonia: Status: Acute Assessment and Plan: 50-year-old male with past medical history of TBI as well as schizophrenia who comes to the hospital with increased confusion, less responsiveness found to be septic # sepsis due to right hip cellulitis and bilateral pneumonia fever and hypotension resolved, persistent mild tachycardia, WBC normalized Status post IV fluids continue IV ceftriaxone and azithromycin follow cultures, no evidence of fluid collection around right hip, consult ID # acute toxic encephalitis resolved patient seems to be at baseline answering questions appropriately # history of schizophrenia/TBI continue home medication # on apixaban continue home medications and verify need for anticoagulation with nursing facility, EKG shows sinus tachycardia. Quality Stroke Does the patient have a stroke diagnosis?: No VTE Prior VTE?: No VTE Risk Level:: Medical - moderate - high VTE Device Contraindication: Treatment Not Indicated VTE Drug Contraindication: N/A - Med Ordered
--- NOTE | 2021-07-27 13:13 | P.CNID_ITS ---
History of Present Illness Data of Consult Service Date: 07/27/21 Requesting physician: Hung Gentile Primary Care Provider: DO JANNA Ny Reason for consult: sepsis,hip pain He presents from [facility] with confusion and myalgias. He is pointing to right hip as area of pain. He has fever and chills and tachycardia. Right pelvic film shows no abscess CXR AP film poor inspiration Patient has no shortness of breath. Review of Systems Review of Systems: Yes all other systems are reviewed and are negative [facility] Past Medical History Medical History Abscess Chronic pain syndrome COPD (chronic obstructive pulmonary disease) Obesity Schizophrenia TBI (traumatic brain injury) Family History Family history: reviewed and not pertinent Social History Social History Household Members: Other Household Members Other:: patient from [facility] Housing: Halfway Do you presently have visiting nurse or other home services: No Unable to assess alcohol history related to: Unknown Patient Tobacco Use Status: Tobacco use Unknown Meds Allergies Allergy/AdvReac Type Severity Reaction Status Date / Time No Known Allergies* Allergy Uncoded 08/13/20 10:20 Active Medications: Current Medications Generic Name Dose Route Start Last Admin Trade Name Freq PRN Reason Stop Dose Admin Acetaminophen 650 mg 07/26/21 21:21 Acetaminophen 325 Mg Tablet PO Q6H PRN Pain, Mild (Pain Scale 1-3) Apixaban 2.5 mg 07/26/21 21:21 07/27/21 08:50 Apixaban 2.5 Mg Tablet PO 2.5 mg BID GAETANO Administration Atorvastatin Calcium 20 mg 07/26/21 21:21 07/26/21 22:03 Atorvastatin Calcium 20 Mg Tablet PO 20 mg BEDTIME GAETANO Administration Benztropine Mesylate 0.5 mg 07/26/21 21:21 07/27/21 09:24 Benztropine Mesylate 0.5 Mg Tablet PO 0.5 mg BID GAETANO Administration Diazepam 1 mg 07/26/21 21:21 07/27/21 08:50 Diazepam 2 Mg Tablet PO 1 mg BID GAETANO Administration Docusate Sodium 100 mg 07/26/21 21:21 Docusate Sodium 100 Mg Capsule PO DAILY PRN Constipation Gabapentin 300 mg 07/26/21 21:21 07/27/21 08:52 Gabapentin 300 Mg Capsule PO 300 mg TID GAETANO Administration Haloperidol 15 mg 07/26/21 21:21 07/27/21 08:50 Haloperidol 5 Mg Tablet PO 15 mg TID GAETANO Administration Multivitamins/Vitamin C 1 tab 07/27/21 09:00 07/27/21 08:51 Multivitamin Tablet PO 1 tab DAILY GAETANO Administration Omeprazole 20 mg 07/27/21 06:30 07/27/21 05:49 Omeprazole 20 Mg Capsule.Dr PO 20 mg DAILY@0630 GAETANO Administration Ondansetron HCl 4 mg 07/26/21 21:21 Ondansetron Hcl 4 Mg/2 Ml Vial IVPUSH Q8H PRN Nausea and Vomiting Oxcarbazepine 150 mg 07/26/21 21:21 07/27/21 08:50 Oxcarbazepine 150 Mg Tablet PO 150 mg BID GAETANO Administration Oxybutynin Chloride 10 mg 07/27/21 09:00 07/27/21 08:49 Oxybutynin Chloride Er 5 Mg Tab.Er.24 PO 10 mg DAILY GAETANO Administration Propranolol HCl 10 mg 07/26/21 21:21 07/27/21 08:51 Propranolol Hcl 10 Mg Tablet PO 10 mg TID [facility] Administration Protocol Senna 8.6 mg 07/26/21 21:21 Sennosides 8.6 Mg Tablet PO DAILY PRN Constipation Sodium Chloride 3 ml 07/27/21 00:00 07/27/21 08:45 0.9 % Sodium Chloride Flush 3 Ml Syringe IVFLUSH 3 ml QSHIFT GAETANO Administration Home Medications Medication Instructions Recorded Confirmed Last Taken Type acetaminophen 325 mg tablet 650 mg PO Q6H PRN 07/26/21 07/26/21 Unknown History (Tylenol) apixaban 2.5 mg tablet 2.5 mg PO BID 07/26/21 07/27/21 Unknown History atorvastatin 20 mg tablet (Lipitor) 20 mg PO BEDTIME 07/26/21 07/26/21 Unknown History benztropine 0.5 mg tablet 0.5 mg PO BID 07/26/21 07/26/21 Unknown History bisacodyl 10 mg rectal suppository 10 mg IN DAILY PRN 07/26/21 07/26/21 Unknown History diazepam 2 mg tablet 1 mg PO BID 07/26/21 07/26/21 Unknown History gabapentin 300 mg capsule 300 mg PO TID 07/26/21 07/26/21 Unknown History haloperidol 5 mg tablet 15 mg PO BID 07/26/21 07/27/21 Unknown History ibuprofen 200 mg tablet 200 mg PO Q6H PRN 07/26/21 07/26/21 Unknown History maltodextrin 1 ea PO 07/26/21 Unknown History metronidazole 0.75 % topical cream 1 appl TOPICAL BID 07/26/21 07/27/21 Unknown History multivitamin 1 tab PO DAILY 07/26/21 07/26/21 Unknown History omeprazole 20 mg capsule,delayed 20 mg PO DAILY 07/26/21 07/26/21 Unknown History release oxcarbazepine 150 mg tablet 150 mg PO BID 07/26/21 07/26/21 Unknown History oxybutynin chloride 5 mg tablet 5 mg PO BID 07/26/21 07/26/21 Unknown History propranolol 10 mg tablet 10 mg PO TID 07/26/21 07/26/21 Unknown History sennosides 8.6 mg tablet (senna) 8.6 mg PO DAILY PRN 07/26/21 07/26/21 Unknown History Physical Exam Vital Signs: Vital Signs: Last Vital Signs Temp 97.6 F 07/27/21 12:00 Pulse 99 07/27/21 12:00 Resp 19 07/27/21 12:00 BP 122/55 L 07/27/21 12:00 Pulse Ox 98 07/27/21 12:00 Body Mass Index 33.8 Const: General: cooperative Orientation/consciousness: oriented to person HENMT: Other: seborrhea over face Head: Yes normal to inspection Eyes: General: appearance normal, both eyes and all related structures Resp: Effort & Inspection: normal respiratory effort Cardio: Rate: regular rate Rhythm: regular rhythm GI: Palpation (GI): Soft to palpation and nontender Neuro: General: oriented to person Extrem: Other: right lateral leg around THR incision is hot and red Results Labs CBC & Chem 7: 07/27/21 08:34 07/30/21 05:18 Labs: Short CBC 07/26/21 07/27/21 Range/Units 14:56 08:34 WBC 15.6 H 9.2 (4.8-10.8) X10*3/uL Hgb 14.0 12.2 L (14.0-18.0) g/dl Hct 43.4 38.4 L (42-52) % Plt Count 219 175 (160-400) X10*3/uL BMP 07/26/21 07/27/21 14:56 08:34 Sodium 140 140 Potassium 4.2 3.9 Chloride 106 110 H Carbon Dioxide 25 23 BUN 15 8 L Creatinine 0.80 0.61 Calcium 9.1 8.2 L D Cardiac Enzymes 07/26/21 Range/Units 14:56 Total Creatine Kinase 49 (38-174) U/L Liver Function 07/26/21 Range/Units 14:56 Total Bilirubin 0.6 (0.0-1.0) mg/dL Direct Bilirubin 0.3 (0.0-0.5) mg/dL AST 48 H (5-37) U/L ALT 57 H (0-40) U/L Alkaline Phosphatase 194 H (39-117) U/L Albumin 4.1 (3.5-5.0) g/dL Assessment and Plan (1) Sepsis: Status: Resolved This appears to be related to cellulitis There doesnt appear to be infected THR or abscess to be drained at this time There could be strep typeable or staph He has one view CXR some basilar smudging and no hypoxia so I dont think pneumonia cause Would stop Ceftriaxone and Zmax Start Vancomycin possible 3-5 days and switch to po Doxycycline if improves after for a week (2) Fever: Qualifiers: Fever type: unspecified Qualified Code(s): R50.9 - Fever, unspecified Status: Resolved (3) Cellulitis: Qualifiers: Site of cellulitis: buttock Qualified Code(s): L03.317 - Cellulitis of buttock Status: Acute
[2021-07-27] MEDS: vancomycin HCL 1,250 MG in 0.9 % Sodium Chloride 250 ML 166.67 MG IV (14:54)
[2021-07-27 17:26] LABS: Glucose Urine UA NEG (NEG); Leukocyte Esterase Urine NEG (NEG); Nitrite Urine NEG (NEG); Specific Gravity - Urine 1.015 (1.005-1.025); Urine Blood NEG (NEG); Urine Ketones NEG (NEG); Urine Protein NEG (NEG-TRACE)
[2021-07-27 17:28] LABS: Appearance Urine CLEAR; Color Urine YELLOW
[2021-07-27] MEDS: Atorvastatin Calcium 20 MG TABLET PO (20:07)
[2021-07-28] VITALS (7 sets, daily range): BP systolic 116–132; BP diastolic 60–72; PULSE 91–106; RESP 16–19; TEMP 36.5–37.2; O2SAT 96–98
[2021-07-28] MEDS: vancomycin HCL 1,250 MG in 0.9 % Sodium Chloride 250 ML 166.67 MG IV (01:24)
[2021-07-28] MEDS: Omeprazole 20 MG CAPSULE.DR PO (06:03)
[2021-07-28] MEDS: 0.9 % Sodium Chloride Flush 3 ML SYRINGE IVFLUSH ×3 (07:14→23:20)
[2021-07-28 07:39] LABS: Creatinine Clr Calc Pharmacy 185.2; Estimated Glomerular Filt Rate > 60
[2021-07-28] MEDS: Gabapentin 300 MG CAPSULE PO ×3 (09:11→21:55)
[2021-07-28] MEDS: Propranolol HCL 10 MG TABLET PO ×3 (09:11→21:55)
[2021-07-28] MEDS: diazePAM 2 MG TABLET 1 MG PO ×2 (09:11→21:56)
[2021-07-28] MEDS: Apixaban 2.5 MG TABLET PO ×2 (09:11→21:56)
[2021-07-28] MEDS: HaloperidoL 5 MG TABLET 15 MG PO ×3 (09:11→21:55)
[2021-07-28] MEDS: Multivitamin TABLET 1 TAB PO (09:11)
[2021-07-28] MEDS: Benztropine Mesylate 0.5 MG TABLET PO ×2 (09:12→21:55)
[2021-07-28] MEDS: OXcarbazepine 150 MG TABLET PO ×2 (09:18→21:55)
--- NOTE | 2021-07-28 11:47 | MHC.CM.PN ---
IMM 07/28/21, ERM REVIEWED, PT ADMITTED W/CELLULITIS, CM MET W/PT WHO REPORTS HE LIVES AT [facility], PT REPORTS HE USES A WC/, IS DEPENDENT W/CARE AND SOMETIMES NEEDS ASSISTANCE W/EATING, PT REPORTS HIS HCP & GUARDIAN IS HIS MOTHER WHO'S CONTACT INFO IS ON FILE, ED CM HAS REQUESTED COPIES OF HCP AND GUARDIAN HOWEVER HAS NOT RECEIVED AT THIS TIME. D/C PLAN: RETURN TO [facility] W/ACTION FOR BLS TRANSPORT PCP: JOE GORDILLO
[2021-07-28 13:45] LABS: Vancomycin Trough 8.7 mcg/mL (10.0-20.0)
[2021-07-28] MEDS: vancomycin HCL 1,500 MG in 0.9 % Sodium Chloride 500 ML 333.33 MG IV (14:16)
--- NOTE | 2021-07-28 14:35 | P.PNIM_ITS ---
Subjective Subjective Date of Service: 07/28/21 Interval History: no acute issues overnight, finished all his breakfast , complaining of right hip pain. Review of Systems General no headache, no dizziness, no fever chills.? CVS no chest pain, no palpitation.? Respiratory no cough, no sob.? Gastrointestinal no nausea, no vomiting, no abdominal pain Physical Exam Vital Signs: Vital Signs: Last Vital Signs Temp 98.0 F 07/28/21 11:36 Pulse 99 07/28/21 14:15 Resp 19 07/28/21 11:36 BP 125/60 07/28/21 14:15 Pulse Ox 98 07/28/21 11:36 Body Mass Index 33.8 General resting comfortably in no acute distress.? Neck no JVD. CVS? regular rate rhythm, Respiratory lungs clear to auscultation, no respiratory distress, no wheeze, no rhonchi. Gastrointestinal abdomen soft, nontender, bowel sounds audible Extremities no edema. Right hip redness improved, no fluctuation, no induration, incision from prior hip surgery is clean and dry Skin no rash Objective Data Active Medications Acetaminophen (Acetaminophen 325 Mg Tablet) 650 mg PO Q6H PRN PRN Reason: Pain, Mild (Pain Scale 1-3) Apixaban (Apixaban 2.5 Mg Tablet) 2.5 mg PO BID [facility] Last Admin: 07/28/21 09:11 Dose: 2.5 mg Documented by: FOSTER Atorvastatin Calcium (Atorvastatin Calcium 20 Mg Tablet) 20 mg PO BEDTIME [facility] Last Admin: 07/27/21 20:07 Dose: 20 mg Documented by: EDMUNDO Benztropine Mesylate (Benztropine Mesylate 0.5 Mg Tablet) 0.5 mg PO BID [facility] Last Admin: 07/28/21 09:12 Dose: 0.5 mg Documented by: FOSTER Diazepam (Diazepam 2 Mg Tablet) 1 mg PO BID [facility] Last Admin: 07/28/21 09:11 Dose: 1 mg Documented by: FOSTER Docusate Sodium (Docusate Sodium 100 Mg Capsule) 100 mg PO DAILY PRN PRN Reason: Constipation Gabapentin (Gabapentin 300 Mg Capsule) 300 mg PO TID [facility] Last Admin: 07/28/21 14:14 Dose: 300 mg Documented by: BOBBY Haloperidol (Haloperidol 5 Mg Tablet) 15 mg PO TID [facility] Last Admin: 07/28/21 14:15 Dose: 15 mg Documented by: BOBBY Vancomycin HCl 1,500 mg/ (Sodium Chloride) 500 mls @ 333.333 mls/hr IV Q12H [facility] Last Admin: 07/28/21 14:16 Dose: 333.33 mls/hr Documented by: BOBBY Multivitamins/Vitamin C (Multivitamin Tablet) 1 tab PO DAILY [facility] Last Admin: 07/28/21 09:11 Dose: 1 tab Documented by: FOSTER Omeprazole (Omeprazole 20 Mg Capsule.Dr) 20 mg PO DAILY@0630 [facility] Last Admin: 07/28/21 06:03 Dose: 20 mg Documented by: RUFINO Ondansetron HCl (Ondansetron Hcl 4 Mg/2 Ml Vial) 4 mg IVPUSH Q8H PRN PRN Reason: Nausea and Vomiting Oxcarbazepine (Oxcarbazepine 150 Mg Tablet) 150 mg PO BID [facility] Last Admin: 07/28/21 09:18 Dose: 150 mg Documented by: FOSTER Oxybutynin Chloride (Oxybutynin Chloride Er 5 Mg Tab.Er.24) 10 mg PO DAILY [facility] Last Admin: 07/28/21 09:11 Dose: 10 mg Documented by: FOSTER Pharmacy Consult (Consult Rx Vancomycin Dosing) 1 each MISCELLANE DAILY PRN PRN Reason: Consult order Propranolol HCl (Propranolol Hcl 10 Mg Tablet) 10 mg PO TID [facility]; Protocol Last Admin: 07/28/21 14:15 Dose: 10 mg Documented by: BOBBY Senna (Sennosides 8.6 Mg Tablet) 8.6 mg PO DAILY PRN PRN Reason: Constipation Sodium Chloride (0.9 % Sodium Chloride Flush 3 Ml Syringe) 3 ml IVFLUSH QSHIFT [facility] Last Admin: 07/28/21 07:14 Dose: 3 ml Documented by: FOSTER Labs CBC & Chem 7: 07/27/21 08:34 07/28/21 06:25 Labs: Laboratory Results - last 24 hr 07/27/21 07/28/21 07/28/21 17:15 06:25 13:05 Estim Creat Clear Calc 185.2 Estimated GFR > 60 Urine Color YELLOW Urine Appearance CLEAR Urine pH 6.0 Ur Specific [place] 1.015 Urine Protein NEG Urine Glucose (UA) NEG Urine Ketones NEG Urine Blood NEG Urine Nitrite NEG Ur Leukocyte Esterase NEG Vancomycin Trough 8.7 L Microbiology Microbiology Results: Microbiology 07/27/21 01:51 Stool Culture - Preliminary Stool Normal so far. 07/26/21 15:06 Blood Culture - Preliminary Blood - Venous No growth after 24 hours. 07/26/21 14:39 Blood Culture - Preliminary Blood - Venous No growth after 24 hours. Assessment and Plan (1) Sepsis: Status: Acute (2) Fever: Status: Acute (3) Cellulitis: Status: Acute Assessment and Plan: 50-year-old male with past medical history of TBI as well as schizophrenia who comes to the hospital with increased confusion, less responsiveness found to be septic # sepsis due to right hip cellulitis Patient seen by ID she does not feel patient has pneumonia, all symptoms of sepsis resolved , right hip redness improved Patient hemodynamically stable, antibiotics changed to IV vancomycin, will follow BMP and Vanco level ? Blood cultures x2 negative # acute toxic encephalitis resolved patient seems to be at baseline answering questions appropriately # history of schizophrenia/TBI continue home medication # on apixaban continue home medications, EKG shows sinus tachycardia. Quality Stroke Does the patient have a stroke diagnosis?: No VTE Prior VTE?: No VTE Risk Level:: Medical - moderate - high VTE Device Contraindication: Treatment Not Indicated VTE Drug Contraindication: N/A - Med Ordered
--- NOTE | 2021-07-28 14:51 | MHC.CLN ---
NUTRITION CONSULT CONSULT DUE TO SID=15. CELLULITIS TO RIGHT UPPER LEG WITHOUT PRESSURE INJURY. DIET=REGULAR. NO ADDITIONAL NUTRITION INTERVENTIONS AT THIS TIME.
[2021-07-28] MEDS: Atorvastatin Calcium 20 MG TABLET PO (21:56)
[2021-07-29] MEDS: vancomycin HCL 1,500 MG in 0.9 % Sodium Chloride 500 ML 333.33 MG IV ×2 (01:54→14:43)
[2021-07-29 03:52] VITALS: BP 110/82; PULSE 108; RESP 18; TEMP 36.6; O2SAT 96
[2021-07-29] MEDS: Omeprazole 20 MG CAPSULE.DR PO (05:55)
[2021-07-29] MEDS: 0.9 % Sodium Chloride Flush 3 ML SYRINGE IVFLUSH ×2 (05:59→21:37)
[2021-07-29 07:09] LABS: Creatinine Clr Calc Pharmacy 188.2; Estimated Glomerular Filt Rate > 60
[2021-07-29 08:00] VITALS: BP 119/61; PULSE 95; RESP 16; TEMP 36.2; O2SAT 95
[2021-07-29] MEDS: Propranolol HCL 10 MG TABLET PO ×3 (09:04→21:29)
[2021-07-29] MEDS: Benztropine Mesylate 0.5 MG TABLET PO ×2 (09:04→21:29)
[2021-07-29] MEDS: HaloperidoL 5 MG TABLET 15 MG PO ×3 (09:04→22:55)
[2021-07-29] MEDS: Gabapentin 300 MG CAPSULE PO ×3 (09:04→21:29)
[2021-07-29] MEDS: OXcarbazepine 150 MG TABLET PO ×2 (09:04→21:30)
[2021-07-29] MEDS: Apixaban 2.5 MG TABLET PO ×2 (09:04→21:30)
[2021-07-29] MEDS: diazePAM 2 MG TABLET 1 MG PO ×2 (09:05→21:31)
[2021-07-29] MEDS: Multivitamin TABLET 1 TAB PO (09:05)
[2021-07-29 11:25] VITALS: BP 132/57; PULSE 94; RESP 18; TEMP 36.6; O2SAT 98
--- NOTE | 2021-07-29 12:54 | P.PNIM_ITS ---
Subjective Subjective Date of Service: 07/29/21 Interval History: Complaining of right hip pain, denies fever chills, tolerating diet, no acute issues overnight. Review of Systems General no headache, no dizziness, no fever chills.? CVS no chest pain, no palpitation.? Respiratory no cough, no sob.? Gastrointestinal no nausea, no vomiting, no abdominal pain Physical Exam Vital Signs: Vital Signs: Last Vital Signs Temp 97.8 F 07/29/21 11:25 Pulse 94 07/29/21 11:25 Resp 18 07/29/21 11:25 BP 132/57 L 07/29/21 11:25 Pulse Ox 98 07/29/21 11:25 Body Mass Index 33.8 General resting comfortably,no acute distress.? Neck no JVD. CVS? regular rate rhythm, Respiratory lungs clear to auscultation, no respiratory distress, no wheeze, no rhonchi. Gastrointestinal abdomen soft, nontender, bowel sounds audible Extremities no edema. Right hip? redness improved but persistent mild erythema and tenderness, no fluctuation, no induration, incision from prior hip surgery is clean and dry Skin no rash Objective Data Active Medications Acetaminophen (Acetaminophen 325 Mg Tablet) 650 mg PO Q6H PRN PRN Reason: Pain, Mild (Pain Scale 1-3) Apixaban (Apixaban 2.5 Mg Tablet) 2.5 mg PO BID [facility] Last Admin: 07/29/21 09:04 Dose: 2.5 mg Documented by: FOSTER Atorvastatin Calcium (Atorvastatin Calcium 20 Mg Tablet) 20 mg PO BEDTIME [facility] Last Admin: 07/28/21 21:56 Dose: 20 mg Documented by: CHILDGUILLERMO Benztropine Mesylate (Benztropine Mesylate 0.5 Mg Tablet) 0.5 mg PO BID [facility] Last Admin: 07/29/21 09:04 Dose: 0.5 mg Documented by: FOSTER Diazepam (Diazepam 2 Mg Tablet) 1 mg PO BID [facility] Last Admin: 07/29/21 09:05 Dose: 1 mg Documented by: FOSTER Docusate Sodium (Docusate Sodium 100 Mg Capsule) 100 mg PO DAILY PRN PRN Reason: Constipation Gabapentin (Gabapentin 300 Mg Capsule) 300 mg PO TID [facility] Last Admin: 07/29/21 09:04 Dose: 300 mg Documented by: FOSTER Haloperidol (Haloperidol 5 Mg Tablet) 15 mg PO TID [facility] Last Admin: 07/29/21 09:04 Dose: 15 mg Documented by: FOSTER Vancomycin HCl 1,500 mg/ (Sodium Chloride) 500 mls @ 333.333 mls/hr IV Q12H [facility] Last Infusion: 07/29/21 04:21 Dose: 0 mls/hr Documented by: FOSTER Multivitamins/Vitamin C (Multivitamin Tablet) 1 tab PO DAILY [facility] Last Admin: 07/29/21 09:05 Dose: 1 tab Documented by: FOSTER Omeprazole (Omeprazole 20 Mg Capsule.Dr) 20 mg PO DAILY@0630 [facility] Last Admin: 07/29/21 05:55 Dose: 20 mg Documented by: FOSTER Ondansetron HCl (Ondansetron Hcl 4 Mg/2 Ml Vial) 4 mg IVPUSH Q8H PRN PRN Reason: Nausea and Vomiting Oxcarbazepine (Oxcarbazepine 150 Mg Tablet) 150 mg PO BID [facility] Last Admin: 07/29/21 09:04 Dose: 150 mg Documented by: FOSTER Oxybutynin Chloride (Oxybutynin Chloride Er 5 Mg Tab.Er.24) 10 mg PO DAILY [facility] Last Admin: 07/29/21 09:04 Dose: 10 mg Documented by: FOSTER Pharmacy Consult (Consult Rx Vancomycin Dosing) 1 each MISCELLANE DAILY PRN PRN Reason: Consult order Propranolol HCl (Propranolol Hcl 10 Mg Tablet) 10 mg PO TID [facility]; Protocol Last Admin: 07/29/21 09:04 Dose: 10 mg Documented by: FOSTER Senna (Sennosides 8.6 Mg Tablet) 8.6 mg PO DAILY PRN PRN Reason: Constipation Sodium Chloride (0.9 % Sodium Chloride Flush 3 Ml Syringe) 3 ml IVFLUSH QSHIFT [facility] Last Admin: 07/29/21 05:59 Dose: 3 ml Documented by: FOSTER Labs CBC & Chem 7: 07/27/21 08:34 07/29/21 05:54 Labs: Laboratory Results - last 24 hr 07/28/21 07/29/21 13:05 05:54 Estim Creat Clear Calc 188.2 Estimated GFR > 60 Vancomycin Trough 8.7 L Microbiology Microbiology Results: Microbiology 07/27/21 01:51 Stool Culture - Preliminary Stool Culture in progress. 07/26/21 15:06 Blood Culture - Preliminary Blood - Venous No growth after 48 hours. 07/26/21 14:39 Blood Culture - Preliminary Blood - Venous No growth after 48 hours. Assessment and Plan (1) Sepsis: Status: Acute (2) Fever: Status: Acute (3) Cellulitis: Status: Acute Assessment and Plan: 50-year-old male with past medical history of TBI as well as schizophrenia who comes to the hospital with increased confusion, less responsiveness found to be septic # Sepsis due to right hip cellulitis ? all symptoms of sepsis resolved , right hip redness improving, persistent pain ? Patient hemodynamically stable, continue IV vancomycin day 2,vanco trough 8.7, dose adjusted, follow BMP and Vanco level will transition to by mouth doxycycline once pain and redness improves. ? Blood cultures x2 negative will add oxycodone for pain. # acute toxic encephalitis resolved patient seems to be at baseline answering questions appropriately # history of schizophrenia/TBI continue home medication # on apixaban/propranolol, continue home medications, EKG shows sinus tachycardia. Quality Stroke Does the patient have a stroke diagnosis?: No VTE Prior VTE?: No VTE Risk Level:: Medical - moderate - high VTE Device Contraindication: Treatment Not Indicated VTE Drug Contraindication: N/A - Med Ordered
[2021-07-29 20:00] VITALS: BP 95/74; PULSE 92; RESP 15; TEMP 36.9; O2SAT 96
[2021-07-29 21:29] VITALS: BP 139/86; PULSE 93
[2021-07-29] MEDS: Atorvastatin Calcium 20 MG TABLET PO (21:30)
[2021-07-30] VITALS: BP 129/61; PULSE 95; RESP 16; TEMP 36.9; O2SAT 95
[2021-07-30 01:55] LABS: Vancomycin Trough 12.6 mcg/mL (10.0-20.0)
[2021-07-30] MEDS: vancomycin HCL 1,500 MG in 0.9 % Sodium Chloride 500 ML 333.33 MG IV (02:58)
[2021-07-30 04:00] VITALS: BP 134/58; PULSE 84; RESP 16; TEMP 36.9; O2SAT 95
[2021-07-30] MEDS: Omeprazole 20 MG CAPSULE.DR PO (06:00)
[2021-07-30 06:21] LABS: Anion Gap 11 (12-20); Blood Urea Nitrogen 6 mg/dL (9-16); Carbon Dioxide 26 mmol/L (22-29); Chloride 109 mmol/L (96-108); Estimated Glomerular Filt Rate > 60; Glucose Random 109 mg/dL (60-115); Potassium 3.5 mmol/L (3.3-5.1); Sodium 142 mmol/L (135-145)
[2021-07-30 08:00] VITALS: BP 135/73; PULSE 85; RESP 18; TEMP 36.7; O2SAT 96
[2021-07-30] MEDS: 0.9 % Sodium Chloride Flush 3 ML SYRINGE IVFLUSH (10:33)
[2021-07-30] MEDS: diazePAM 2 MG TABLET 1 MG PO (10:34)
[2021-07-30 10:35] VITALS: BP 135/73; PULSE 85
[2021-07-30] MEDS: Propranolol HCL 10 MG TABLET PO ×2 (10:35→14:33)
[2021-07-30] MEDS: Gabapentin 300 MG CAPSULE PO ×2 (10:35→14:33)
[2021-07-30] MEDS: OXcarbazepine 150 MG TABLET PO (10:35)
[2021-07-30] MEDS: HaloperidoL 5 MG TABLET 15 MG PO ×2 (10:36→14:33)
[2021-07-30] MEDS: Apixaban 2.5 MG TABLET PO (10:36)
[2021-07-30] MEDS: Multivitamin TABLET 1 TAB PO (10:36)
[2021-07-30] MEDS: Benztropine Mesylate 0.5 MG TABLET PO (10:36)
[2021-07-30 11:34] VITALS: BP 125/61; PULSE 95; RESP 20; TEMP 37.4; O2SAT 97
--- NOTE | 2021-07-30 11:53 | PM.DS ---
DS: Providers Provider Date of Service: 07/30/21 Date of admission: 07/26/21 20:06 Primary care physician: Ricardo Goode DO Consults: 07/27/21 11:12 Consult to Infectious Diseases Stat Consulting Provider: Angelita West Reason for consultation: sepsis hip cellulitis/pna Has provider been notified: No DS: Diagnosis Discharge Diagnosis (1) Sepsis: Status: Acute (2) Fever: Status: Acute (3) Cellulitis: Status: Acute DS: Summary Hospital Course Hospital Course: History of presenting illness Chief Complaint: Altered mental status This is a 50-year-old male with past medical history of COPD, schizophrenia, TBI, obesity, chronic pain syndrome who is from a [facility] and is chronically bedbound per report, presents to the hospital after staff at correction found him to be less responsive and confused.? Patient is a poor historian and is not answering questions appropriately.? When asked about pain he points to his right hip.? He answers no to any questions involving any other symptoms.? Therefore history is obtained mostly from ED physician.? According to the ED physician patient underwent workup in the ED and was found to be febrile with a temperature of 101.8, patient also developed hypotension with blood pressure dropping to 84/60.? Patient was started on IV antibiotics and resuscitated with IV fluids.? Workup revealed cellulitis of the left hip and bilateral pneumonia with negative COVID test. ?Flu vitals initially showed a temp of 101.8?, heart rate of 114, respiratory rate of 20, blood pressure initially was 116/70 that dropped to 84/60, satting 94% on room air Labs revealed WBC count of 15.6, AST of 48, ALT of 57, alk phos of 194, COVID-19 negative. No definite acute abnormality within the abdomen and pelvis, focal soft tissue stranding in the region of the right hip.? Fairly superficial with no evidence of discrete deep fluid collection. Chest x-ray shows right basilar airspace opacity as well as left basal are airspace opacity. Head and neck CT angiogram shows no intracranial hemorrhage or large acute infarction, chronic infarction seen within the right lateral basal ganglia and sub insular region in addition to the right temporal lobe.? No hemodynamic significant stenosis in the major arteries of the neck. Hospital course 50-year-old male with past medical history of TBI as well as schizophrenia who comes to the hospital with increased confusion, less responsiveness found to be septic due to right hip cellulitis, and acute toxic encephalopathy patient treated with IV vancomycin blood cultures x2 is negative, he is afebrile, all symptoms of sepsis has resolved patient seems to be at baseline level of alertness therefore being discharged home on by mouth doxycycline for 1 more week Recommend to continue all home medication with history of schizophrenia/TBI Continue apixaban/propranolol Time Spent with Patient Time attestation: Total time spent providing and/or coordinating discharge services: Discharge coordination time: Greater than 30 minutes Quality: Stroke Does the patient have a stroke diagnosis?: No Physical Exam Vital Signs: Vital Signs: Last Vital Signs Temp 99.3 F 07/30/21 11:34 Pulse 95 07/30/21 11:34 Resp 20 07/30/21 11:34 BP 125/61 07/30/21 11:34 Pulse Ox 97 07/30/21 11:34 Body Mass Index 33.8 General resting comfortably,no acute distress.? Neck no JVD. CVS? regular rate rhythm, Respiratory lungs clear to auscultation, no respiratory distress, no wheeze, no rhonchi. Gastrointestinal abdomen soft, nontender, bowel sounds audible Extremities no edema. Right hip? redness improved, no fluctuation, no induration, incision from prior hip surgery is clean and dry Skin no rash DS: Data Data Completed and Pending Labs on day of discharge: Laboratory Results - last 24 hr 07/30/21 07/30/21 01:16 05:18 Sodium 142 Potassium 3.5 Chloride 109 H Carbon Dioxide 26 Anion Gap 11 L BUN 6 L Creatinine 0.56 Estim Creat Clear Calc 205.0 Estimated GFR > 60 Random Glucose 109 Calcium 8.0 L Vancomycin Trough 12.6 Preliminary micro results at discharge 07/27/21 01:51 Stool Culture - Preliminary Stool Culture in progress. 07/26/21 15:06 Blood Culture - Preliminary Blood - Venous No growth after 48 hours. 07/26/21 14:39 Blood Culture - Preliminary Blood - Venous No growth after 48 hours. Discharge Plan Discharge Patient Disposition: [facility] Discharge Diagnosis: Right hip cellulitis Sepsis Acute toxic encephalitis Referrals: [facility] [Outside] - 1 Day (RESUMPTION OF CARE) Ricardo oGode DO [Primary Care Provider] - 1 Week Discharge Medications: New doxycycline hyclate 100 mg tablet 100 mg PO BID Qty: 14 RF: 0 Continued multivitamin Tablet 1 tab PO DAILY RF: 0 oxcarbazepine 150 mg Tablet 150 mg PO BID RF: 0 sennosides [senna] 8.6 mg Tablet 8.6 mg PO DAILY PRN (Reason: Constipation) RF: 0 acetaminophen [Tylenol] 325 mg Tablet 650 mg PO Q6H PRN (Reason: Fever Or Pain) RF: 0 atorvastatin [Lipitor] 20 mg Tablet 20 mg PO BEDTIME RF: 0 benztropine 0.5 mg Tablet 0.5 mg PO BID RF: 0 haloperidol 5 mg Tablet 15 mg PO BID RF: 0 propranolol 10 mg Tablet 10 mg PO TID RF: 0 diazepam 2 mg Tablet 1 mg PO BID RF: 0 bisacodyl 10 mg Suppository 10 mg MD DAILY PRN (Reason: Constipation) RF: 0 metronidazole 0.75 % Cream 1 appl TOPICAL BID RF: 0 ibuprofen 200 mg Tablet 200 mg PO Q6H PRN (Reason: Pain (Scale Score 1-3)) RF: 0 gabapentin 300 mg Capsule 300 mg PO TID RF: 0 omeprazole 20 mg Capsule,Delayed Release(Dr/Ec) 20 mg PO DAILY RF: 0 oxybutynin chloride 5 mg Tablet 5 mg PO BID RF: 0 maltodextrin Powder 1 ea PO RF: 0 apixaban 2.5 mg Tablet 2.5 mg PO BID RF: 0 Discharge Orders: Discharge Order (Routine); Ordered 07/30/21 Ordered By: Hung Gentile Diet: low fat, low cholesterol Activity on Discharge: As tolerated Stand Alone Forms: Patient Portal Discharge page Care Plan Goals: Right hip cellulitis take doxycycline 1 tablet twice daily for 7 days, return to check with any worsening symptoms recurrent fevers or confusion Health Concerns: Continue all home medications as before Plan of Treatment: Follow-up with PCP in 1 week Assessment: As above
[2021-07-30 12:28] LABS: COVID-19 Test Negative (Negative); IDNOW Serial# 9DD0AD1C
--- NOTE | 2021-07-30 13:08 | MHC.CM.PN ---
PT DISCHARGING BACK TO [facility] AT APPROXIMATELY 3PM TODAY W/ACTION FOR BLS TRANSPORT.
[2021-07-30 14:33] VITALS: BP 125/61; PULSE 95
== END 2021-07-30 15:07 | disposition skilled nursing facility (03) | DRG 871 ==
LOC: HO.ED 14:41 → HO.EDOVER 20:16 → HO.S3 07-27 10:41
PROVIDERS: Internal Medicine; Admitting Provider Internal Medicine; Emergency Provider Emergency Medicine; PCP Hospitalist; Visit Provider Hospitalist
DX: A41.9 Sepsis, unspecified organism (principal); J18.9 Pneumonia, unspecified organism; G92 Toxic encephalopathy; L03.115 Cellulitis of right lower limb; F20.9 Schizophrenia, unspecified; Z20.822 Contact with and (suspected) exposure to COVID-19; Z87.820 Personal history of traumatic brain injury; Z79.1 Long term (current) use of non-steroidal anti-inflammatories (NSAID); Z79.01 Long term (current) use of anticoagulants; Z79.899 Other long term (current) drug therapy
CPT/HCPCS: 36415; 70450; 70496; 70498; 71045; 74176; 80048; 80076; 80202; 81003; 82140; 82550; 82565; 82803; 83605; 83735; 84484; 85025; 85610; 85730; 87040; 87045; 87046; 87493; 87635; 93005; 96361; 96365; 96375; 99285; J0456; J0696; J2543; J3370; Q9967

== ENCOUNTER 2021-10-28 08:14 | Emergency (ER) | payer MEDICARE, MEDICAID, SELFPAY ==
--- NOTE | ~2021-10-28 | XR_ITS ---
EXAMINATION: XR CHEST CLINICAL INFORMATION: Weakness COMPARISON: 07/26/2021 TECHNIQUE: Frontal view of the chest was obtained. FINDINGS: Cardiac leads overlie the chest. Low lung volumes. No consolidation, edema, or effusion. No pneumothorax. The cardiomediastinal silhouette is within normal limits. Degenerative changes of the spine. XR/XR chest 1V IMPRESSION: Low lung volumes with no acute pulmonary finding.
--- NOTE | ~2021-10-28 | CT_ITS ---
EXAMINATION: CT ABDOMEN AND PELVIS WITHOUT CONTRAST CLINICAL INFORMATION: Abdominal pain. COMPARISON: CT 07/26/2021. TECHNIQUE: Multidetector volumetric imaging was performed from the superior aspect of the liver through the pubic symphysis. Sagittal and coronal reformatted images were obtained on the technologist's workstation. This CT examination was performed using dose optimization techniques as appropriate, variously including the following: *Automated exposure control *Adjustment of mA and/or kV according to patient size (this includes techniques or standardized protocols for targeted exams where dose is matched to indication/reason for exam; i.e. extremities or head) *Use of iterative reconstruction technique DLP: 1087 mGy-cm FINDINGS: LUNG BASES: Minimal basilar atelectasis. LIVER, GALLBLADDER, AND BILIARY TREE: The liver is normal in size, shape, and attenuation. No focal hepatic lesion or biliary ductal dilatation is present. The gallbladder is unremarkable with no evidence of radiopaque gallstones, gallbladder wall thickening, or obvious pericholecystic inflammatory changes. PANCREAS: Mild fatty atrophy of the pancreas with no focal abnormality. SPLEEN: Unremarkable. ADRENAL GLANDS: Unremarkable. KIDNEYS AND URETERS: The kidneys are normal in size, shape, and attenuation. No hydronephrosis or hydroureter. There are at least 3 left lower pole renal calculi measuring up to 0.4 cm, 9.5 cm from the posterior axillary line. BLADDER: Unremarkable. GASTROINTESTINAL TRACT: The stomach is normally distended without wall thickening. The small bowel is normal in caliber. No obstruction. No evidence of ileus. No colonic wall thickening or acute inflammatory change. Normal appendix. No free air or free fluid. ABDOMINAL WALL: No significant hernia is appreciated. LYMPH NODES: No lymphadenopathy. There is the appearance of a mara mesentery . This is similar to prior. VASCULAR: Unremarkable. PELVIC VISCERA: The prostate and seminal vesicles are unremarkable. OSSEOUS STRUCTURES: Scoliotic curvature of the spine with multilevel degenerative changes. Fixation hardware seen at both proximal femora. Advanced degenerative changes at both hips. 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 CT/CT abdomen pelvis wo con IMPRESSION: No acute findings of the abdomen or pelvis. No obstruction. No abnormal stool burden. Nonobstructing left lower pole renal calculi. Fleischner guidelines were followed.
--- NOTE | 2021-10-28 08:25 | ED.ABDPAIN ---
HPI - Abdominal Pain General Chief Complaint: Abdominal Pain Stated Complaint: ABD PAIN AND CONSTIPATION SINCE MONDAY Time Seen by Provider: 10/28/21 08:19 Source: patient and old records reviewed Mode of arrival: ambulatory Limitations: no limitations (slow to respond due to TBI) History of Present Illness MD elicited complaint: abdominal pain Pertinent past history: constipation Onset (ago): day(s) (3) Pain Consistency: constant Severity: moderate Quality: aching Radiation: none Migration to: no migration Exacerbating factors: eating Relieving factors: nothing Context: other (10/25 KUB ileus no BM since the weekend ) Associated symptoms: nausea, vomiting and constipation Treatments prior to arrival: other (tried bisacodyl suppository no relief, vomiting brown emesis) Related Data Home Medications Medication Instructions Recorded Confirmed apixaban 2.5 mg tablet 2.5 mg PO BID 07/26/21 10/28/21 atorvastatin 20 mg tablet (Lipitor) 20 mg PO BEDTIME 07/26/21 10/28/21 benztropine 0.5 mg tablet 0.5 mg PO BID 07/26/21 10/28/21 diazepam 2 mg tablet 0.5 mg PO BID 07/26/21 10/28/21 gabapentin 300 mg capsule 300 mg PO TID 07/26/21 10/28/21 haloperidol 5 mg tablet 15 mg PO BID 07/26/21 10/28/21 omeprazole 20 mg capsule,delayed 20 mg PO DAILY 07/26/21 10/28/21 release oxcarbazepine 150 mg tablet 150 mg PO BID 07/26/21 10/28/21 oxybutynin chloride 5 mg tablet 5 mg PO BID 07/26/21 10/28/21 propranolol 10 mg tablet 10 mg PO TID 07/26/21 10/28/21 Allergies Allergy/AdvReac Type Severity Reaction Status Date / Time No Known Allergies* Allergy Unknown Uncoded 10/28/21 08:36 Review of Systems Review of Systems Constitutional : No Weight loss, No Fever, No Chills ENT/Mouth : No sore throat, No Rhinorrhea Eyes: No Swelling, No Redness Cardiovascular : No Chest Pain, No SOB, NoEdema Respiratory : No Cough, No Sputum, No Wheezing Gastrointestinal : Positive Nausea, Positive Vomiting, no Diarrhea, positive abdominal Pain, No Hematochezia, No Melena, pos constipation Genitourinary : No Dysuria, No Urinary Frequency, No Hematuria, No Urgency Musculoskeletal : No joint pain, No Myalgias, No Joint Swelling Skin : No Skin Lesions, No rash Neuro : No Weakness, No Numbness, No Dizziness, No Headache Psych : No Anxiety/Panic, No Depression Heme/Lymph: No Bruising, No Lymphadenopathy Endocrine : No Polyuria, No Polydipsia All other systems reviewed and are negative. Physical Exam Vital Signs: Vital Signs: Last Vital Signs Temp 99.1 F 10/28/21 08:36 Pulse 83 10/28/21 08:36 Resp 16 10/28/21 08:36 BP 104/74 10/28/21 08:36 Pulse Ox 97 10/28/21 08:36 BMI result Body Mass Index 32.1 Appearance: Alert. Oriented X3. No acute distress. Eyes: Pupils equal, round and reactive to light. ENT: Pharynx dry MM Neck: Normal inspection. Neck supple. CVS: Normal heart rate and rhythm. Pulses normal. Respiratory: No respiratory distress. Breath sounds normal. Abdomen: Soft and distended with decreased sounds and diffusely ttp Skin: Skin warm and dry. Normal skin color. Normal skin turgor. Extremities: No lower extremity edema. No calf ttp Neuro: Oriented X 3. No motor deficit. No sensory deficit. Contracted diffusely weak Course Course Course Narrative: no fevers, no UTI, no pneumonia, negative CT scan no obstruction, no WBC count negative lactic acid, extensive workup negative in ED tolerating PO feels much better asking for a burger MDM - Abdominal Pain MDM Narrative Medical decision making narrative: 51 yo male [facility] hx of TBI hx of ileus and constipation - KUB 10/25 ileus comes in with vomiting, abdominal pain, no BM since weekend - at this time labs, IVF, UA, CT scan for obstruction ordered. Dispo per results and findings. Lab Data Result diagrams: 10/28/21 10:12 10/28/21 10:12 Labs: Lab Results 10/28/21 10/28/21 10/28/21 Range/Units 09:55 10:12 10:12 WBC 6.7 (4.8-10.8) X10*3/uL RBC 5.66 (4.60-5.80) X10*6/uL Hgb 14.4 (14.0-18.0) g/dl Hct 47.1 (42.0-52.0) % MCV 83.2 (80.0-98.0) fL MCH 25.4 L (27.0-33.0) pg MCHC 30.6 L (31.0-36.0) g/dl RDW 13.8 (11.0-16.0) % Plt Count 106 L (160-400) X10*3/uL MPV 9.4 (9.4-12.4) fL Immature Gran % (Auto) 0.3 (0.0-0.4) % Neut % (Auto) 57.9 (45-73) % Lymph % (Auto) 23.9 (20-40) % [place] % (Auto) 13.2 H (2-11) % Eos % (Auto) 4.5 H (0-4) % Baso % (Auto) 0.2 (0-2) % Lymph # (Auto) 1.6 (1.2-4.9) X10*3/uL [place] # (Auto) 0.9 (0.1-1.2) X10*3/uL Eos # (Auto) 0.3 (0.0-0.4) X10*3/uL Baso # (Auto) 0.0 (0.0-0.2) X10*3/uL Abs Immat Gran (auto) 0.02 (0.00-0.03) X10*3/uL Absolute Neuts (auto) 3.9 (2.0-8.3) x10*3/uL Absolute Nucleated RBC 0.000 (0.0-0.012) X10*3/uL Nucleated RBC % (auto) 0.0 (0.0-0.2) /100WBC Smear Tech's Comments VERIFIED Sodium 142 (135-145) mmol/L Potassium 3.5 (3.3-5.1) mmol/L Chloride 100 (96-108) mmol/L Carbon Dioxide 33 H (22-29) mmol/L Anion Gap 13 (12-20) BUN 21 H (9-16) mg/dL Creatinine 0.75 (0.5-1.4) mg/dL Estim Creat Clear Calc 155.9 Estimated GFR > 60 Random Glucose 97 (60-115) mg/dL Lactic Acid (0.5-2.0) mmol/L Calcium 9.3 D (8.4-10.2) mg/dL Magnesium 2.2 (1.6-2.6) mg/dL Total Bilirubin 0.5 (0.0-1.0) mg/dL Direct Bilirubin 0.3 (0.0-0.5) mg/dL AST 26 D (5-37) U/L ALT 20 (0-40) U/L Alkaline Phosphatase 134 H D (39-117) U/L Total Protein 7.0 (6.5-8.0) g/dL Albumin 4.0 (3.5-5.0) g/dL Lipase 11 (8-78) U/L Urine Color Urine Appearance Urine pH (5.0-8.0) Ur Specific [place] (1.005-1.025) Urine Protein (NEG-TRACE) MG/DL Urine Glucose (UA) (NEG) MG/DL Urine Ketones (NEG) MG/DL Urine Blood (NEG) Urine Nitrite (NEG) Ur Leukocyte Esterase (NEG) COVID-19 (RHINA) Negative (Negative) COVID-19 Clin Com See Note 10/28/21 10/28/21 Range/Units 10:12 10:12 WBC (4.8-10.8) X10*3/uL RBC (4.60-5.80) X10*6/uL Hgb (14.0-18.0) g/dl Hct (42.0-52.0) % MCV (80.0-98.0) fL MCH (27.0-33.0) pg MCHC (31.0-36.0) g/dl RDW (11.0-16.0) % Plt Count (160-400) X10*3/uL MPV (9.4-12.4) fL Immature Gran % (Auto) (0.0-0.4) % Neut % (Auto) (45-73) % Lymph % (Auto) (20-40) % [place] % (Auto) (2-11) % Eos % (Auto) (0-4) % Baso % (Auto) (0-2) % Lymph # (Auto) (1.2-4.9) X10*3/uL [place] # (Auto) (0.1-1.2) X10*3/uL Eos # (Auto) (0.0-0.4) X10*3/uL Baso # (Auto) (0.0-0.2) X10*3/uL Abs Immat Gran (auto) (0.00-0.03) X10*3/uL Absolute Neuts (auto) (2.0-8.3) x10*3/uL Absolute Nucleated RBC (0.0-0.012) X10*3/uL Nucleated RBC % (auto) (0.0-0.2) /100WBC Smear Tech's Comments Sodium (135-145) mmol/L Potassium (3.3-5.1) mmol/L Chloride (96-108) mmol/L Carbon Dioxide (22-29) mmol/L Anion Gap (12-20) BUN (9-16) mg/dL Creatinine (0.5-1.4) mg/dL Estim Creat Clear Calc Estimated GFR Random Glucose (60-115) mg/dL Lactic Acid 1.3 (0.5-2.0) mmol/L Calcium (8.4-10.2) mg/dL Magnesium (1.6-2.6) mg/dL Total Bilirubin (0.0-1.0) mg/dL Direct Bilirubin (0.0-0.5) mg/dL AST (5-37) U/L ALT (0-40) U/L Alkaline Phosphatase (39-117) U/L Total Protein (6.5-8.0) g/dL Albumin (3.5-5.0) g/dL Lipase (8-78) U/L Urine Color YELLOW Urine Appearance CLEAR Urine pH 6.0 (5.0-8.0) Ur Specific [place] 1.025 (1.005-1.025) Urine Protein TRACE (NEG-TRACE) MG/DL Urine Glucose (UA) NEG (NEG) MG/DL Urine Ketones 5 (NEG) MG/DL Urine Blood NEG (NEG) Urine Nitrite NEG (NEG) Ur Leukocyte Esterase NEG (NEG) COVID-19 (RHINA) (Negative) COVID-19 Clin Com ECG Data Attestation: I personally reviewed and interpreted this ECG as follows: ECG interpretation date: 10/28/21 ECG interpretation time: 12:23 Interpretation: Rate: 80 Rhythm: NSR [place]: left Normal P waves. Normal JASON. Normal QRS complex. ST T wave : artifact but no FOX, nonspecific qTC: normal prior studies: no acute ischemia The study has been interpreted contemporaneously by me. . Discharge Plan Discharge Clinical Impression: Abdominal pain Qualifiers: Abdominal location: generalized Qualified Code(s): R10.84 - Generalized abdominal pain Vomiting Qualifiers: Vomiting type: unspecified Nausea presence: with nausea Qualified Code(s): R11.2 - Nausea with vomiting, unspecified Patient Disposition: Home, Self-Care Instructions: Acute Nausea and Vomiting (ED), Acute Abdominal Pain (ED) Additional Instructions: return to ED for any worsening symptoms or concerns CT scan: CT/CT abdomen pelvis wo con IMPRESSION: No acute findings of the abdomen or pelvis. No obstruction. No abnormal stool burden. ? Nonobstructing left lower pole renal calculi.? ? Fleischner guidelines were followed. plts 106 UA negative COVID negative CXR negative Prescriptions: No Action oxcarbazepine 150 mg Tablet 150 mg PO BID RF: 0 atorvastatin [Lipitor] 20 mg Tablet 20 mg PO BEDTIME RF: 0 benztropine 0.5 mg Tablet 0.5 mg PO BID RF: 0 haloperidol 5 mg Tablet 15 mg PO BID RF: 0 propranolol 10 mg Tablet 10 mg PO TID RF: 0 diazepam 2 mg Tablet 0.5 mg PO BID RF: 0 gabapentin 300 mg Capsule 300 mg PO TID RF: 0 omeprazole 20 mg Capsule,Delayed Release(Dr/Ec) 20 mg PO DAILY RF: 0 oxybutynin chloride 5 mg Tablet 5 mg PO BID RF: 0 apixaban 2.5 mg Tablet 2.5 mg PO BID RF: 0 Referrals: Ricardo Goode DO [Primary Care Provider] - 1 day Interventions: ED Discharge Assessment Last Done: 10/28/21 15:28 [facility] Past Medical History Attestation statement: The following information was validated with the patient. Medical History Abscess Chronic pain syndrome COPD (chronic obstructive pulmonary disease) Obesity Schizophrenia TBI (traumatic brain injury) Social History Social History Household Members: Other Household Members Other:: patient from [facility] Housing: Longterm Do you presently have visiting nurse or other home services: No Unable to assess alcohol history related to: Unknown Alcohol intake: unknown Patient Tobacco Use Status: Tobacco use Unknown Use of substances other than those prescribed or required for medical reasons: No Advance Directives: No Advance Directives Information Provided: No
[2021-10-28 08:36] VITALS: BP 104/74; PULSE 83; RESP 16; TEMP 37.3; O2SAT 97; BMI 32.1
--- NOTE | 2021-10-28 09:15 | PHA.MEDREC ---
Pharmacy Consult ? Medication Reconciliation Pharmacy has completed the medication reconciliation.
--- NOTE | 2021-10-28 09:45 | PC.NURSE ---
Pt arrived with EMS, Aox4 but slow to respond r/t hx of TBI Lungs clear and appears in no distress NSR Abd rounded with tenderness to B/L quad Pt noted to have soft BM upon arrival to ER
[2021-10-28 10:22] LABS: Basophils Percent Auto 0.2 % (0-2); Eosinophils Absolute Auto 0.3 X10*3/uL (0.0-0.4); Eosinophils Percent Auto 4.5 % (0-4); Hematocrit 47.1 % (42.0-52.0); Hemoglobin 14.4 g/dl (14.0-18.0); Imm Gran Abs Auto 0.02 X10*3/uL (0.00-0.03); Imm Gran Pct Auto 0.3 % (0.0-0.4); Lymphocytes Absolute Auto 1.6 X10*3/uL (1.2-4.9); Lymphocytes Percent Auto 23.9 % (20-40); MANUAL DIFF FLAG SCAN; Mean Corpuscular HGB Conc 30.6 g/dl (31.0-36.0); Mean Corpuscular Hemoglobin 25.4 pg (27.0-33.0); Mean Corpuscular Volume 83.2 fL (80.0-98.0); Mean Platelet Volume 9.4 fL (9.4-12.4); Monocytes Absolute Auto 0.9 X10*3/uL (0.1-1.2); Monocytes Percent Auto 13.2 % (2-11); Neutrophils Absolute Auto 3.9 x10*3/uL (2.0-8.3); Neutrophils Percent Auto 57.9 % (45-73); PLT CLUMP 1; Red Blood Count 5.66 X10*6/uL (4.60-5.80); Red Cell Distribution Width 13.8 % (11.0-16.0); SCAN SMEAR FLAG 1
[2021-10-28 10:23] LABS: Appearance Urine CLEAR; Color Urine YELLOW; Glucose Urine UA NEG (NEG); Leukocyte Esterase Urine NEG (NEG); Nitrite Urine NEG (NEG); Specific Gravity - Urine 1.025 (1.005-1.025); Urine Blood NEG (NEG); Urine Ketones 5 MG/DL (NEG); Urine Protein TRACE MG/DL (NEG-TRACE)
[2021-10-28] MEDS: 0.9 % Sodium Chloride 500 ML IV (10:23)
[2021-10-28] MEDS: ondansetron HCL 4 MG/2 ML VIAL IVPUSH (10:24)
[2021-10-28 10:40] LABS: COVID-19 Test Negative (Negative); IDNOW Serial# 08D9AD1C
[2021-10-28 10:42] LABS: Alanine Aminotransferase 20 U/L (0-40); Alkaline Phosphatase 134 U/L (39-117); Anion Gap 13 (12-20); Aspartate Amino Transferase 26 U/L (5-37); Bilirubin Direct 0.3 mg/dL (0.0-0.5); Bilirubin Total 0.5 mg/dL (0.0-1.0); Blood Urea Nitrogen 21 mg/dL (9-16); Calcium 9.3 mg/dL (8.4-10.2); Carbon Dioxide 33 mmol/L (22-29); Chloride 100 mmol/L (96-108); Creatinine Clr Calc Pharmacy 155.9; Estimated Glomerular Filt Rate > 60; Glucose Random 97 mg/dL (60-115); Lipase 11 U/L (8-78); Magnesium 2.2 mg/dL (1.6-2.6); Potassium 3.5 mmol/L (3.3-5.1); Sodium 142 mmol/L (135-145)
[2021-10-28 10:47] LABS: Lactic Acid 1.3 mmol/L (0.5-2.0)
[2021-10-28 11:00] LABS: Platelet Count 106 X10*3/uL (160-400); White Blood Count 6.7 X10*3/uL (4.8-10.8)
[2021-10-28 11:01] LABS: SLIDE REVIEW VERIFIED
--- NOTE | 2021-10-28 11:04 | ECG_ITS ---
Test Reason : ABD PAIN Blood Pressure : / mmHG Vent. Rate : 080 BPM Atrial Rate : 080 BPM P-R Int : 156 ms QRS Dur : 086 ms QT Int : 390 ms P-R-T Axes : 031 -23 -01 degrees QTc Int : 449 ms Normal sinus rhythm Normal ECG When compared with ECG of 26-JUL-2021 15:21, No significant change was found Referred By: Benita Kelley Electronically Signed By:Christopher Roth
--- NOTE | 2021-10-28 13:10 | PC.NURSE ---
update to Muriel Eason.
--- NOTE | 2021-10-28 15:23 | PC.NURSE ---
Report given to MichaRN at [facility], who stated understanding r/t reasoning behind D/C EMS at bedside for transport back to [facility] at this time
[2021-10-28 15:47] VITALS: BP 144/76; PULSE 96; RESP 19; TEMP 36.6; O2SAT 98
== END 2021-10-28 15:58 | disposition home or self-care (01) ==
PROVIDERS: Emergency Provider Emergency Medicine; PCP Hospitalist
DX: R10.84 Generalized abdominal pain (principal); Z20.822 Contact with and (suspected) exposure to COVID-19; R11.2 Nausea with vomiting, unspecified
CPT/HCPCS: 36415; 51701; 71045; 74176; 80048; 80076; 81003; 83605; 83690; 83735; 85025; 87635; 93005; 96361; 96374; 99284; J2405

== ENCOUNTER 2022-02-11 11:35 | Emergency (ER) | payer MEDICARE, MEDICAID, SELFPAY ==
--- NOTE | ~2022-02-11 | CT_ITS ---
EXAMINATION: CT ABDOMEN AND PELVIS WITH CONTRAST CLINICAL INFORMATION: Abdominal pain, vomiting and diarrhea. COMPARISON: None TECHNIQUE: Multidetector volumetric images were obtained from the superior aspect of the liver through the pubic symphysis following administration 85 mL of Omnipaque 350 intravenous contrast. Sagittal and coronal reformatted images were obtained on the technologist's workstation. Oral contrast: No This CT examination was performed using dose optimization techniques as appropriate, variously including the following: *Automated exposure control *Adjustment of mA and/or kV according to patient size (this includes techniques or standardized protocols for targeted exams where dose is matched to indication/reason for exam; i.e. extremities or head) *Use of iterative reconstruction technique DLP: 1525 mGy-cm FINDINGS: LUNG BASES: The lung bases are clear. The heart size is normal. LIVER, GALLBLADDER, AND BILIARY TREE: The liver is normal in size, shape, and attenuation. No focal hepatic lesion or biliary ductal dilatation is present. The gallbladder is unremarkable with no evidence of radiopaque gallstones, gallbladder wall thickening, or obvious pericholecystic inflammatory changes. PANCREAS: Unremarkable. SPLEEN: Unremarkable. ADRENAL GLANDS: Unremarkable. KIDNEYS AND URETERS: There are two 4 mm radiopaque calculi lower pole and two 2mm radiopaque calculi mid to lower pole left kidney without caliectasis. The right kidneys unremarkable. There is no hydronephrosis. BLADDER: Unremarkable. GASTROINTESTINAL TRACT: There is scattered stool, diverticuli and gas seen in the colon without distention or diverticulitis. Minimal gas is seen in the stomach and the proximal small bowel loops without distention. There is mild fat stranding of the central mesentery with no focal nodule or mass seen. It is nonspecific. Appendix is not seen. ABDOMINAL WALL: No significant hernia is appreciated. LYMPH NODES: Normal. VASCULAR: Unremarkable. PELVIC VISCERA: Unremarkable. OSSEOUS STRUCTURES: There is left central medullary femoral michelle and a right lateral hip plate and screws for stabilization of fractures. There is moderate spondylosis and bridging osteophytes ventral lumbar spine. No aggressive lytic or sclerotic process seen. CT/CT abdomen pelvis w con IMPRESSION: No acute intra-abdominal process seen. Scattered colonic diverticulosis without diverticulitis. Nonobstructive radiopaque calculi left kidney. Fleischner guidelines were followed.
[2022-02-11 11:50] VITALS: BP 113/70; BP 95/53; PULSE 93; PULSE 97; RESP 14; TEMP 36.5; O2SAT 96; BMI 33.9
--- NOTE | 2022-02-11 11:50 | ECG_ITS ---
Test Reason : abdominal pain Blood Pressure : / mmHG Vent. Rate : 096 BPM Atrial Rate : 096 BPM P-R Int : 132 ms QRS Dur : 084 ms QT Int : 344 ms P-R-T Axes : 012 -10 000 degrees QTc Int : 434 ms Normal sinus rhythm Normal ECG When compared with ECG of 28-OCT-2021 12:20, No significant change was found Referred By: Kaylie Kelsey Electronically Signed By:Christopher Roth
--- NOTE | 2022-02-11 11:58 | ED_ITS ---
HPI - Nausea/Vomiting/Diarrhea General Chief complaint: Abdominal Pain Stated complaint: n/v/d Time Seen by Provider: 02/11/22 11:49 Source: patient, EMS and other ([facility]) Mode of arrival: EMS Limitations: no limitations History of Present Illness HPI Narrative: 51-year-old male with a history of TBI, seizure disorder, PTSD, COPD, schizophrenia, GERD here with reports of abdominal pain with associated vomiting and diarrhea noted today. No reports of fevers or chills. Patient is coming from a long-term care facility Associated nausea: Yes Related Data Home Medications Medication Instructions Recorded Confirmed apixaban 2.5 mg tablet 2.5 mg PO BID 07/26/21 02/11/22 atorvastatin 20 mg tablet (Lipitor) 20 mg PO BEDTIME 07/26/21 02/11/22 benztropine 0.5 mg tablet 0.5 mg PO BID 07/26/21 02/11/22 diazepam 2 mg tablet 0.5 mg PO BID 07/26/21 02/11/22 gabapentin 300 mg capsule 300 mg PO TID 07/26/21 02/11/22 haloperidol 5 mg tablet 15 mg PO BID 07/26/21 02/11/22 omeprazole 20 mg capsule,delayed 20 mg PO DAILY 07/26/21 02/11/22 release oxcarbazepine 150 mg tablet 150 mg PO BID 07/26/21 02/11/22 oxybutynin chloride 5 mg tablet 5 mg PO BID 07/26/21 02/11/22 propranolol 10 mg tablet 10 mg PO TID 07/26/21 02/11/22 acetaminophen 325 mg tablet 650 mg PO TID 02/11/22 02/11/22 betamethasone valerate 0.1 % 1 appl TOPICAL BID 02/11/22 02/11/22 topical cream ibuprofen 200 mg tablet 200 mg PO Q6H PRN 02/11/22 02/11/22 metronidazole 0.75 % topical cream 1 appl TOPICAL BID 02/11/22 02/11/22 multivitamin 1 tab PO DAILY 02/11/22 02/11/22 salicylic acid-sulfur 2 %-2 % 1 appl TOPICAL DAILY 02/11/22 02/11/22 shampoo (Sebex) sennosides 8.6 mg tablet (senna) 8.6 mg PO DAILY PRN 02/11/22 02/11/22 zinc oxide-vitamin B5-vit E 11.3% 1 appl TOPICAL QSHIFT 02/11/22 02/11/22 topical cream (Balmex Adult Care) Allergies Allergy/AdvReac Type Severity Reaction Status Date / Time No Known Allergies* Allergy Unknown Uncoded 10/28/21 08:36 Review of Systems Review of Systems: Yes all other systems are reviewed and are negative Constitutional: Constitutional: Reports no additional constitutional complaints, Denies body ache(s), Denies chills, Denies fever(s), Denies headache(s) and Denies weakness Eyes: Eyes: Reports no additional eye complaints and Denies change in vision ENT: Reports system reviewed and no additional complaints, except as documented, Denies dizziness, Denies headache(s), Denies nasal congestion, Skyler es nasal discharge and Denies neck pain Cardiovascular: Cardiovascular: Reports no additional cardiovascular complaints, Denies chest pain, Denies leg edema and Denies dyspnea Respiratory: Respiratory: Reports no additional respiratory complaints, Denies cough and Denies dyspnea Gastrointestinal: Gastrointestinal: Reports no additional gastrointestinal complaints, Reports abdominal pain, Reports diarrhea, Reports nausea and Reports vomiting Genitourinary: Genitourinary: Denies urinary incontinence Musculoskeletal: Musculoskeletal: Reports no additional musculoskeletal complaints, Denies back pain, Denies arthralgias, Denies joint swelling, Denies neck pain, Denies numbness and Denies tingling Integumentary/Breasts: Skin/Breast: Reports system reviewed and no additional complaints, except as docu and Denies rash Neurologic: Reports system reviewed and no additional complaints, except as documented, Denies Abnormal speech present, Reports confusion (at baseline per staff at [facility]), Denies dizziness, Denies headache(s), Denies numbness, Denies tingling and Denies weakness Psychiatric: Psychiatric: Reports confusion (at baseline per staff at [facility]) [facility] Past Medical History Attestation statement: The following information was validated with the patient. Source: old records reviewed and nursing notes reviewed Medical History Abscess Chronic pain syndrome COPD (chronic obstructive pulmonary disease) Obesity Schizophrenia TBI (traumatic brain injury) Social History Social History Household Members: Other Household Members Other:: patient from [facility] Housing: [facility] Do you presently have visiting nurse or other home services: No Unable to assess alcohol history related to: Unknown Alcohol intake: unknown Patient Tobacco Use Status: Tobacco use Unknown Advance Directives: No Advance Directives Information Provided: Yes Physical Exam Vital Signs: Vital Signs: Last Vital Signs Temp 98.0 F 02/11/22 15:15 Pulse 98 02/11/22 16:42 Resp 18 02/11/22 16:42 BP 117/64 02/11/22 16:42 Pulse Ox 98 02/11/22 15:15 BMI result Body Mass Index 33.9 Const: General: cooperative, healthy appearing, comfortable, no acute distress and confusion (at baseline per staff at [facility]) Orientation/consciousness: confusion (at baseline per staff at [facility]) Limitations: no limitations HEENT: Head: Yes normal to inspection Ears: hearing grossly normal bilaterally and TM's normal bilaterally General nose exam: Normal external nose present Face and sinus: Yes normal facial exam Mouth: Normal oral and palatal mucosa present Throat: Yes posterior oropharynx normal, Yes tonsils normal and Yes uvula midline Eyes: General: appearance normal, both eyes and all related structures Pupils: Equal, round and reactive pupils present Neck: Neck: Yes normal visual inspection, Yes full ROM, Yes no lymphadenopathy and Yes no meningeal signs Chest: Chest palpation & inspection: normal inspection of the chest Resp: Effort & Inspection: normal respiratory effort Auscultation: clear to auscultation bilaterally Cardio: Rate: regular rate Rhythm: regular rhythm Peripheral pulses: Peripheral pulses 2+ throughout GI: Other: +brown liquid stool Inspection: Yes normal to inspection Palpation (GI): Soft to palpation and Tenderness to palpation present (GI) (diffusely tender) Auscultation: normal bowel sounds Back/Spine/Pelvis: Thoracic/Lumbar Spine: thoracic and lumbar spine normal to inspection Skin: General skin exam: no rashes or lesions noted Neuro: Other: +contractures with hypertonia General: no meningeal signs, no focal motor deficits, normal sensation to monofilament, confusion (at baseline per staff at [facility]) and Unable to assess gait Cranial nerves: Yes Equal, round and reactive pupils present Speech: No Abnormal speech present Gait exam (Neuro): Unable to assess gait Extrem: General: Yes normal to inspection, Yes no pedal edema and Yes no calf tenderness Course Course Course Narrative: 51 yo male here with complaints of generalized AP, vomiting, diarrhea from [facility]. On arrival patient Alert, confused at baseline. Diffuse AP on exam. Initial BP 95/53. Patient is obese. IBW 77kg used. NS 30cc/kg ordered. Will check labs, UA, stool studies, CT A/P, flu and covid testing 1645-labs are unremarkable. UA was negative for infection. Stool studies are pending. CT shows no acute finding. Likely viral gastroenteritis. Plan for discharge back to [facility] once fluids are infused 1800-Patient feeling improved requesting food. Plan for discharge back [facility]. MDM - Nausea/Vomiting/Diarrhea MDM Narrative Medical decision making narrative: ischemic colitis, c diff Differential Diagnosis Differential diagnosis: Likely gastroenteritis Medical Records Attestation: I reviewed the patient's medical records. Lab Data Attestation: I reviewed the patient's lab results. Result diagrams: 02/11/22 13:31 02/11/22 13:31 Labs: Lab Results 02/11/22 02/11/22 02/11/22 Range/Units 11:50 12:26 13:31 WBC 7.3 (4.8-10.8) X10*3/uL RBC 4.94 (4.60-5.80) X10*6/uL Hgb 12.2 L (14.0-18.0) g/dl Hct 40.1 L (42.0-52.0) % MCV 81.2 (80.0-98.0) fL MCH 24.7 L (27.0-33.0) pg MCHC 30.4 L (31.0-36.0) g/dl RDW 14.0 (11.0-16.0) % Plt Count 247 D (160-400) X10*3/uL MPV 9.2 L (9.4-12.4) fL Immature Gran % (Auto) 0.4 (0.0-0.4) % Neut % (Auto) 63.4 (45-73) % Lymph % (Auto) 19.4 L (20-40) % [place] % (Auto) 9.8 (2-11) % Eos % (Auto) 6.6 H (0-4) % Baso % (Auto) 0.4 (0-2) % Lymph # (Auto) 1.4 (1.2-4.9) X10*3/uL [place] # (Auto) 0.7 (0.1-1.2) X10*3/uL Eos # (Auto) 0.5 H (0.0-0.4) X10*3/uL Baso # (Auto) 0.0 (0.0-0.2) X10*3/uL Abs Immat Gran (auto) 0.03 (0.00-0.03) X10*3/uL Absolute Neuts (auto) 4.6 (2.0-8.3) x10*3/uL Absolute Nucleated RBC 0.000 (0.0-0.012) X10*3/uL Nucleated RBC % (auto) 0.0 (0.0-0.2) /100WBC PT (9.9-13.0) SEC INR (0.9-1.1) Sodium (135-145) mmol/L Potassium (3.3-5.1) mmol/L Chloride (96-108) mmol/L Carbon Dioxide (22-29) mmol/L Anion Gap (12-20) BUN (9-16) mg/dL Creatinine (0.5-1.4) mg/dL Estim Creat Clear Calc Estimated GFR Random Glucose (60-115) mg/dL Lactic Acid (0.5-2.0) mmol/L Calcium (8.4-10.2) mg/dL Magnesium (1.6-2.6) mg/dL Total Bilirubin (0.0-1.0) mg/dL Direct Bilirubin (0.0-0.5) mg/dL AST (5-37) U/L ALT (0-40) U/L Alkaline Phosphatase (39-117) U/L Total Protein (6.5-8.0) g/dL Albumin (3.5-5.0) g/dL Lipase (8-78) U/L Urine Color YELLOW Urine Appearance CLEAR Urine pH 5.5 (5.0-8.0) Ur Specific [place] >= 1.030 H (1.005-1.025) Urine Protein NEG (NEG-TRACE) MG/DL Urine Glucose (UA) NEG (NEG) MG/DL Urine Ketones 5 (NEG) MG/DL Urine Blood 2+ H (NEG) Urine Nitrite NEG (NEG) Ur Leukocyte Esterase NEG (NEG) Urine RBC 30-49 H (0) /HPF Urine WBC 0 (0-4) /HPF Ur Squamous Epith Cells 1+ /LPF Urine Bacteria NONE /LPF Stool Leukocytes, Qual (NEGATIVE) C. difficile Tox B Gene NEGATIVE (Negative) COVID-19 (RHINA) (Negative) COVID-19 Clin Com 02/11/22 02/11/22 02/11/22 Range/Units 13:31 13:31 13:31 WBC (4.8-10.8) X10*3/uL RBC (4.60-5.80) X10*6/uL Hgb (14.0-18.0) g/dl Hct (42.0-52.0) % MCV (80.0-98.0) fL MCH (27.0-33.0) pg MCHC (31.0-36.0) g/dl RDW (11.0-16.0) % Plt Count (160-400) X10*3/uL MPV (9.4-12.4) fL Immature Gran % (Auto) (0.0-0.4) % Neut % (Auto) (45-73) % Lymph % (Auto) (20-40) % [place] % (Auto) (2-11) % Eos % (Auto) (0-4) % Baso % (Auto) (0-2) % Lymph # (Auto) (1.2-4.9) X10*3/uL [place] # (Auto) (0.1-1.2) X10*3/uL Eos # (Auto) (0.0-0.4) X10*3/uL Baso # (Auto) (0.0-0.2) X10*3/uL Abs Immat Gran (auto) (0.00-0.03) X10*3/uL Absolute Neuts (auto) (2.0-8.3) x10*3/uL Absolute Nucleated RBC (0.0-0.012) X10*3/uL Nucleated RBC % (auto) (0.0-0.2) /100WBC PT 13.7 H (9.9-13.0) SEC INR 1.2 H (0.9-1.1) Sodium 141 (135-145) mmol/L Potassium 4.3 D (3.3-5.1) mmol/L Chloride 110 H (96-108) mmol/L Carbon Dioxide 25 (22-29) mmol/L Anion Gap 10 L (12-20) BUN 14 (9-16) mg/dL Creatinine 0.60 (0.5-1.4) mg/dL Estim Creat Clear Calc 189.4 Estimated GFR > 60 Random Glucose 107 (60-115) mg/dL Lactic Acid (0.5-2.0) mmol/L Calcium 8.8 (8.4-10.2) mg/dL Magnesium 2.0 (1.6-2.6) mg/dL Total Bilirubin 0.4 (0.0-1.0) mg/dL Direct Bilirubin < 0.2 (0.0-0.5) mg/dL AST 20 (5-37) U/L ALT 29 (0-40) U/L Alkaline Phosphatase 134 H (39-117) U/L Total Protein 6.5 (6.5-8.0) g/dL Albumin 3.8 (3.5-5.0) g/dL Lipase 12 (8-78) U/L Urine Color Urine Appearance Urine pH (5.0-8.0) Ur Specific [place] (1.005-1.025) Urine Protein (NEG-TRACE) MG/DL Urine Glucose (UA) (NEG) MG/DL Urine Ketones (NEG) MG/DL Urine Blood (NEG) Urine Nitrite (NEG) Ur Leukocyte Esterase (NEG) Urine RBC (0) /HPF Urine WBC (0-4) /HPF Ur Squamous Epith Cells /LPF Urine Bacteria /LPF Stool Leukocytes, Qual (NEGATIVE) C. difficile Tox B Gene (Negative) COVID-19 (RHINA) Negative (Negative) COVID-19 Clin Com See Note 02/11/22 02/11/22 Range/Units 13:31 Unknown WBC (4.8-10.8) X10*3/uL RBC (4.60-5.80) X10*6/uL Hgb (14.0-18.0) g/dl Hct (42.0-52.0) % MCV (80.0-98.0) fL MCH (27.0-33.0) pg MCHC (31.0-36.0) g/dl RDW (11.0-16.0) % Plt Count (160-400) X10*3/uL MPV (9.4-12.4) fL Immature Gran % (Auto) (0.0-0.4) % Neut % (Auto) (45-73) % Lymph % (Auto) (20-40) % [place] % (Auto) (2-11) % Eos % (Auto) (0-4) % Baso % (Auto) (0-2) % Lymph # (Auto) (1.2-4.9) X10*3/uL [place] # (Auto) (0.1-1.2) X10*3/uL Eos # (Auto) (0.0-0.4) X10*3/uL Baso # (Auto) (0.0-0.2) X10*3/uL Abs Immat Gran (auto) (0.00-0.03) X10*3/uL Absolute Neuts (auto) (2.0-8.3) x10*3/uL Absolute Nucleated RBC (0.0-0.012) X10*3/uL Nucleated RBC % (auto) (0.0-0.2) /100WBC PT (9.9-13.0) SEC INR (0.9-1.1) Sodium (135-145) mmol/L Potassium (3.3-5.1) mmol/L Chloride (96-108) mmol/L Carbon Dioxide (22-29) mmol/L Anion Gap (12-20) BUN (9-16) mg/dL Creatinine (0.5-1.4) mg/dL Estim Creat Clear Calc Estimated GFR Random Glucose (60-115) mg/dL Lactic Acid 1.0 (0.5-2.0) mmol/L Calcium (8.4-10.2) mg/dL Magnesium (1.6-2.6) mg/dL Total Bilirubin (0.0-1.0) mg/dL Direct Bilirubin (0.0-0.5) mg/dL AST (5-37) U/L ALT (0-40) U/L Alkaline Phosphatase (39-117) U/L Total Protein (6.5-8.0) g/dL Albumin (3.5-5.0) g/dL Lipase (8-78) U/L Urine Color Urine Appearance Urine pH (5.0-8.0) Ur Specific [place] (1.005-1.025) Urine Protein (NEG-TRACE) MG/DL Urine Glucose (UA) (NEG) MG/DL Urine Ketones (NEG) MG/DL Urine Blood (NEG) Urine Nitrite (NEG) Ur Leukocyte Esterase (NEG) Urine RBC (0) /HPF Urine WBC (0-4) /HPF Ur Squamous Epith Cells /LPF Urine Bacteria /LPF Stool Leukocytes, Qual NEGATIVE (NEGATIVE) C. difficile Tox B Gene (Negative) COVID-19 (RHINA) (Negative) COVID-19 Clin Com Imaging Data CT scan - abdomen: Attestation: I personally reviewed and interpreted this imaging study as follows: Radiologist's impression: FINDINGS: LUNG BASES: The lung bases are clear. The heart size is normal.? LIVER, GALLBLADDER, AND BILIARY TREE: The liver is normal in size, shape, and attenuation. No focal hepatic lesion or biliary ductal dilatation is present. The gallbladder is unremarkable with no evidence of radiopaque gallstones, gallbladder wall thickening, or obvious pericholecystic inflammatory changes.? PANCREAS: Unremarkable.? SPLEEN: Unremarkable.? ADRENAL GLANDS: Unremarkable.? KIDNEYS AND URETERS: There are two 4 mm radiopaque calculi lower pole and two 2mm? radiopaque calculi mid to lower pole left kidney without caliectasis. The right kidneys unremarkable. There is no hydronephrosis. BLADDER: Unremarkable.? GASTROINTESTINAL TRACT: There is scattered stool, diverticuli and gas seen in the colon without distention or diverticulitis. Minimal gas is seen in the stomach and the proximal small bowel loops without distention. There is mild fat stranding of the central mesentery with no focal nodule or mass seen. It is nonspecific. Appendix is not seen. ? ABDOMINAL WALL: No significant hernia is appreciated.? LYMPH NODES: Normal. VASCULAR: Unremarkable. PELVIC VISCERA: Unremarkable.? OSSEOUS STRUCTURES: There is left central medullary femoral michelle and a right lateral hip plate and screws for stabilization of fractures. There is moderate spondylosis and bridging osteophytes ventral lumbar spine. No aggressive lytic or sclerotic process seen.? CT/CT abdomen pelvis w con IMPRESSION: No acute intra-abdominal process seen. ? Scattered colonic diverticulosis without diverticulitis. ? Nonobstructive radiopaque calculi left kidney. ? Fleischner guidelines were followed. ECG Data Attestation: I personally reviewed and interpreted this ECG as follows: ECG interpretation date: 02/11/22 ECG interpretation time: 13:45 Interpretation: Normal sinus rhythm with a rate 96, normal UT, normal QRS, normal QT Discharge Plan Discharge Clinical Impression: Gastroenteritis Patient Disposition: Xfer [facility] Transfer Details: [facility] Instructions: Gastroenteritis (DC) Prescriptions: No Action oxcarbazepine 150 mg Tablet 150 mg PO BID 0RF atorvastatin [Lipitor] 20 mg Tablet 20 mg PO BEDTIME 0RF benztropine 0.5 mg Tablet 0.5 mg PO BID 0RF haloperidol 5 mg Tablet 15 mg PO BID 0RF propranolol 10 mg Tablet 10 mg PO TID 0RF diazepam 2 mg Tablet 0.5 mg PO BID 0RF gabapentin 300 mg Capsule 300 mg PO TID 0RF omeprazole 20 mg Capsule,Delayed Release(Dr/Ec) 20 mg PO DAILY 0RF oxybutynin chloride 5 mg Tablet 5 mg PO BID 0RF apixaban 2.5 mg Tablet 2.5 mg PO BID 0RF multivitamin Tablet 1 tab PO DAILY 0RF sennosides [senna] 8.6 mg Tablet 8.6 mg PO DAILY PRN (Reason: Constipation) 0RF acetaminophen 325 mg Tablet 650 mg PO TID 0RF betamethasone valerate 0.1 % Cream 1 appl TOPICAL BID 0RF Rx Instructions: Apply to face metronidazole 0.75 % Cream 1 appl TOPICAL BID 0RF Rx Instructions: Apply to face ibuprofen 200 mg Tablet 200 mg PO Q6H PRN (Reason: pain or fever) 0RF Sebex 2-2 % Shampoo 1 appl TOPICAL DAILY 0RF Rx Instructions: massage into wet scalp; leave on for 5 mins ; rinse; repeat application Balmex Adult [facility] 11.3 % Cream 1 appl TOPICAL QSHIFT 0RF Interventions: ED Discharge Assessment Last Done: 02/11/22 20:11 Discharge Date/Time: 02/11/22 20:16
[2022-02-11] MEDS: ondansetron HCL 4 MG/2 ML VIAL IVPUSH (13:00)
[2022-02-11] MEDS: 0.9 % Sodium Chloride 2,328 ML 2328 ML IV (13:04)
--- NOTE | 2022-02-11 13:12 | PHA.MEDREC ---
Pharmacy Consult ? Medication Reconciliation Pharmacy has completed the medication reconciliation. Patient came from [facility] a medication list. Tita Heart, ErikD
[2022-02-11 13:42] LABS: MANUAL DIFF FLAG NO
[2022-02-11 13:43] LABS: Basophils Percent Auto 0.4 % (0-2); Eosinophils Absolute Auto 0.5 X10*3/uL (0.0-0.4); Eosinophils Percent Auto 6.6 % (0-4); Hematocrit 40.1 % (42.0-52.0); Hemoglobin 12.2 g/dl (14.0-18.0); Imm Gran Abs Auto 0.03 X10*3/uL (0.00-0.03); Imm Gran Pct Auto 0.4 % (0.0-0.4); Lymphocytes Absolute Auto 1.4 X10*3/uL (1.2-4.9); Lymphocytes Percent Auto 19.4 % (20-40); Mean Corpuscular HGB Conc 30.4 g/dl (31.0-36.0); Mean Corpuscular Hemoglobin 24.7 pg (27.0-33.0); Mean Corpuscular Volume 81.2 fL (80.0-98.0); Mean Platelet Volume 9.2 fL (9.4-12.4); Monocytes Absolute Auto 0.7 X10*3/uL (0.1-1.2); Monocytes Percent Auto 9.8 % (2-11); Neutrophils Absolute Auto 4.6 x10*3/uL (2.0-8.3); Neutrophils Percent Auto 63.4 % (45-73); Platelet Count 247 X10*3/uL (160-400); Red Blood Count 4.94 X10*6/uL (4.60-5.80); White Blood Count 7.3 X10*3/uL (4.8-10.8)
[2022-02-11 13:50] LABS: INTERNATIONAL NORM RATIO 1.2 (0.9-1.1); Prothrombin Time 13.7 SEC (9.9-13.0)
[2022-02-11 13:58] LABS: COVID-19 Test Negative (Negative)
[2022-02-11 14:04] LABS: Alanine Aminotransferase 29 U/L (0-40); Albumin Level 3.8 g/dL (3.5-5.0); Alkaline Phosphatase 134 U/L (39-117); Anion Gap 10 (12-20); Aspartate Amino Transferase 20 U/L (5-37); Bilirubin Direct < 0.2 mg/dL (0.0-0.5); Bilirubin Total 0.4 mg/dL (0.0-1.0); Blood Urea Nitrogen 14 mg/dL (9-16); Calcium 8.8 mg/dL (8.4-10.2); Carbon Dioxide 25 mmol/L (22-29); Chloride 110 mmol/L (96-108); Creatinine Clr Calc Pharmacy 189.4; Estimated Glomerular Filt Rate > 60; Glucose Random 107 mg/dL (60-115); Lipase 12 U/L (8-78); Potassium 4.3 mmol/L (3.3-5.1); Sodium 141 mmol/L (135-145); Total Protein 6.5 g/dL (6.5-8.0)
[2022-02-11] MEDS: iohexoL 350 MG/ML 100 ML INFUS..BTL IV (15:08)
[2022-02-11 15:15] VITALS: BP 98/58; PULSE 90; RESP 16; TEMP 36.7; O2SAT 98
[2022-02-11 15:21] LABS: Appearance Urine CLEAR; Color Urine YELLOW; Glucose Urine UA NEG (NEG); Leukocyte Esterase Urine NEG (NEG); Nitrite Urine NEG (NEG); PH 5.5 (5.0-8.0); Specific Gravity - Urine >= 1.030 (1.005-1.025); UACC Culture Trigger NO; Urine Blood 2+ (NEG); Urine Ketones 5 MG/DL (NEG); Urine Protein NEG (NEG-TRACE)
[2022-02-11 15:30] LABS: RBC Urine 30-49 /HPF (0); Squamous Epithelial Cell Urine 1+ /LPF; WBC Urine 0 /HPF (0-4)
[2022-02-11 16:26] LABS: CDiff Gene PCR NEGATIVE (Negative)
[2022-02-11 16:42] VITALS: BP 117/64; PULSE 98; RESP 18
[2022-02-11 17:32] LABS: Leukocytes Stool Qualitative NEGATIVE (NEGATIVE)
--- NOTE | 2022-02-11 20:08 | PC.NURSE ---
EMS at bedside for transport.
--- NOTE | 2022-02-11 20:15 | PC.NURSE ---
Report given to [facility] RN.
== END 2022-02-11 20:16 ==
PROVIDERS: Nurse Practitioner Family; Emergency Provider Emergency Medicine
DX: K52.9 Noninfective gastroenteritis and colitis, unspecified (principal); Z20.822 Contact with and (suspected) exposure to COVID-19; R10.9 Unspecified abdominal pain; Z87.820 Personal history of traumatic brain injury
CPT/HCPCS: 36415; 74177; 80048; 80076; 81001; 83605; 83690; 83735; 85025; 85610; 87040; 87045; 87046; 87177; 87209; 87493; 87635; 89055; 93005; 96361; 96374; 96375; 99285; J2405; Q9967

== ENCOUNTER 2022-06-19 11:17 | Emergency (ER) | payer MEDICARE, MEDICAID, SELFPAY ==
--- NOTE | ~2022-06-19 | CT_ITS ---
EXAMINATION: CT ABDOMEN AND PELVIS WITH CONTRAST CLINICAL INFORMATION: Abdominal pain COMPARISON: CT abdomen pelvis 02/11/2022 TECHNIQUE: Multidetector volumetric images were obtained from the superior aspect of the liver through the pubic symphysis following administration 100 mL of Omnipaque 350 intravenous contrast. Sagittal and coronal reformatted images were obtained on the technologist's workstation. Oral contrast: No This CT examination was performed using dose optimization techniques as appropriate, variously including the following: *Automated exposure control *Adjustment of mA and/or kV according to patient size (this includes techniques or standardized protocols for targeted exams where dose is matched to indication/reason for exam; i.e. extremities or head) *Use of iterative reconstruction technique DLP: 1604 mGy-cm FINDINGS: LUNG BASES: The visualized lung bases are unremarkable. LIVER, GALLBLADDER, AND BILIARY TREE: The liver is normal in size, shape, and attenuation. No focal hepatic lesion or biliary ductal dilatation is present. The gallbladder is unremarkable with no evidence of radiopaque gallstones, gallbladder wall thickening, or obvious pericholecystic inflammatory changes. PANCREAS: Mildly atrophic. No pancreatic lesion or peripancreatic inflammatory change. SPLEEN: Unremarkable. ADRENAL GLANDS: Unremarkable. KIDNEYS AND URETERS: Couple of nonobstructing left lower pole renal calculi, largest 4 mm in size. Symmetric nephrograms. No hydronephrosis. No ureteral calculi. No renal lesion or perinephric stranding. BLADDER: Unremarkable. GASTROINTESTINAL TRACT: Nonspecific mild dilation of the first through third portions of the duodenum. No gastric dilation. No additional dilated bowel loops. No bowel wall thickening. Normal appendix. No ascites or free air. ABDOMINAL WALL: No significant hernia is appreciated. LYMPH NODES: No lymphadenopathy. Mara appearance of the root of the mesentery is redemonstrated, similar to prior, nonspecific finding. VASCULAR: Mild caliber abdominal aorta. Celiac, SMA, and DUANE origins are patent. PELVIC VISCERA: Unremarkable. OSSEOUS STRUCTURES: No acute fracture or suspicious osseous lesion. Changes of DISH in the thoracolumbar spine. Status post dynamic hip screw fixation the right and prior intramedullary nail fixation left femur. Ankylosis across the right hip joint. Severe left hip joint osteoarthritis. CT/CT abdomen pelvis w con IMPRESSION: 1. No acute intra-abdominal process identified. 2. Nonspecific mild dilation of the duodenum without bowel wall thickening or evidence of obstruction, which may be transient. 3. Unchanged mara appearance of the mesentery. 4. Nonobstructing left renal calculi. Fleischner guidelines were followed.
--- NOTE | ~2022-06-19 | XR_ITS ---
EXAMINATION: XR CHEST CLINICAL INFORMATION: Cough. COMPARISON: Chest 10/28/2021 TECHNIQUE: Frontal view of the chest was obtained. FINDINGS: The lungs are hypoexpanded but clear of acute process. The heart size and pulmonary vascularity is normal. No gross bony abnormality seen there is mild spondylosis throughout dorsal spine. XR/XR chest 1V IMPRESSION: No acute cardiopulmonary process.
[2022-06-19 11:42] VITALS: BP 109/53; BP 112/77; PULSE 102; PULSE 112; RESP 16; TEMP 36.8; O2SAT 97; O2SAT 99; BMI 35.7
[2022-06-19 11:57] VITALS: BP 109/53; PULSE 102; RESP 16; TEMP 36.8; O2SAT 95
--- NOTE | 2022-06-19 12:09 | ED_ITS ---
HPI - Nausea/Vomiting/Diarrhea General Chief complaint: Nausea/Vomiting/Diarrhea Stated complaint: N/V/D X'S 2 DAYS FROM SNF PER EMS Time Seen by Provider: 06/19/22 11:43 Source: patient and EMS Mode of arrival: EMS History of Present Illness HPI Narrative: 51-year-old male brought in by EMS with reports patient having multiple episodes of nausea, vomiting as well as diarrhea. Patient is alert and oriented x1, but also has extensive underlying psychiatric history. On questioning the patient regarding nausea and vomiting he reports that he is hungry and states that his mother and brothers are coming to visit him. But otherwise a poor historian. Related Data Home Medications Medication Instructions Recorded Confirmed apixaban 2.5 mg tablet 2.5 mg PO BID 07/26/21 02/11/22 atorvastatin 20 mg tablet (Lipitor) 20 mg PO BEDTIME 07/26/21 02/11/22 benztropine 0.5 mg tablet 0.5 mg PO BID 07/26/21 02/11/22 diazepam 2 mg tablet 0.5 mg PO BID 07/26/21 02/11/22 gabapentin 300 mg capsule 300 mg PO TID 07/26/21 02/11/22 haloperidol 5 mg tablet 15 mg PO BID 07/26/21 02/11/22 omeprazole 20 mg capsule,delayed 20 mg PO DAILY 07/26/21 02/11/22 release oxcarbazepine 150 mg tablet 150 mg PO BID 07/26/21 02/11/22 oxybutynin chloride 5 mg tablet 5 mg PO BID 07/26/21 02/11/22 propranolol 10 mg tablet 10 mg PO TID 07/26/21 02/11/22 acetaminophen 325 mg tablet 650 mg PO TID 02/11/22 02/11/22 betamethasone valerate 0.1 % 1 appl topical BID 02/11/22 02/11/22 topical cream ibuprofen 200 mg tablet 200 mg PO Q6H PRN pain or fever 02/11/22 02/11/22 metronidazole 0.75 % topical cream 1 appl topical BID 02/11/22 02/11/22 multivitamin 1 tab PO DAILY 02/11/22 02/11/22 salicylic acid-sulfur 2 %-2 % 1 appl topical DAILY 02/11/22 02/11/22 shampoo (Sebex) sennosides 8.6 mg tablet (senna) 8.6 mg PO DAILY PRN Constipation 02/11/22 zinc oxide-vitamin B5-vit E 11.3% 1 appl topical QSHIFT 02/11/22 02/11/22 topical cream (Balmex Adult Care) Previous Rx's Medication Instructions Recorded ondansetron 4 mg disintegrating 4 mg PO Q8H PRN nausea and 06/19/22 tablet vomiting #7 tabs Allergies Allergy/AdvReac Type Severity Reaction Status Date / Time No Known Allergies* Allergy Unknown Uncoded 10/28/21 08:36 Review of Systems Review of Systems: Pertinent positives and negatives as stated in [facility] Past Medical History Source: nursing notes reviewed Medical History (Updated 06/19/22 @ 17:02 by Marleny Herrera MD) Abscess Chronic pain syndrome COPD (chronic obstructive pulmonary disease) Dementia Obesity Schizophrenia TBI (traumatic brain injury) Social History Social History Household Members: Other Household Members Other:: patient from [facility] Housing: Correction Do you presently have visiting nurse or other home services: No Unable to assess alcohol history related to: Unknown Alcohol intake: unknown Patient Tobacco Use Status: Never used Tobacco Use of substances other than those prescribed or required for medical reasons: No Advance Directives: No Advance Directives Information Provided: Yes Physical Exam Vital Signs: Vital Signs: Last Vital Signs Temp 97.4 F 06/19/22 16:40 Pulse 82 06/19/22 16:40 Resp 20 06/19/22 16:40 BP 106/70 06/19/22 16:40 Pulse Ox 97 06/19/22 16:40 O2 Del Method 06/19/22 16:40 BMI result Body Mass Index 35.7 VITAL SIGNS: Reviewed. GENERAL: Chronically ill, well nourished, in no acute distress. HEAD: Normocephalic/atraumatic EYES: PERRLA, EOMI EARS: Ext canals without abnormality, TMs non-bulging and non-erythematous NOSE: Nares patent bilateral OROPHARYNX: no oral lesions noted, posterior pharynx clear NECK: Supple, no adenopathy LUNGS: Normal breath sounds. No adventitious sounds or accessory muscle use. SpO2<95> CARDIOVASCULAR: Regular rate and rhythm without noted murmurs, no JVD or lower extremity edema. ABDOMEN: Soft, non-tender, non-distended with bowel sounds MUSCULOSKELETAL: No tenderness, deformities, or effusions noted on gross inspection. EXTREMITIES: No cyanosis, clubbing or edema. SKIN: Inspection of the skin reveals no rashes NEUROLOGIC: Alert and oriented x 1. Patient with baseline contractures and hypertonia, otherwise sensation intact Course Course Course Narrative: 51-year-old male with history and clinical presentation of recurrent visits for nausea vomiting and diarrhea. On review of all investigations there are no acute findings when compared to baseline. Patient did receive IV fluids as well as antiemetics and on re- evaluation patient reports that he is no longer nauseous or vomiting and will p.o. challenge. I have noted that the x-ray continues to mention ?Yazmin mesentery? but this has been a reading throughout the previous CT scans as well. I will provide a referral to follow-up with general surgery to better characterize the importance of these CT findings and the relationship to the intermittent episodes of nausea and vomiting. MDM - Nausea/Vomiting/Diarrhea Lab Data Result diagrams: 06/19/22 12:47 06/19/22 12:47 Labs: Lab Results 06/19/22 06/19/22 06/19/22 Range/Units 12:47 12:47 12:47 WBC 9.0 (4.8-10.8) X10*3/uL RBC 5.44 (4.60-5.80) X10*6/uL Hgb 12.8 L (14.0-18.0) g/dl Hct 41.1 L (42.0-52.0) % MCV 75.6 L (80.0-98.0) fL MCH 23.5 L (27.0-33.0) pg MCHC 31.1 (31.0-36.0) g/dl RDW 15.5 (11.0-16.0) % Plt Count 261 (160-400) X10*3/uL MPV 9.0 L (9.4-12.4) fL Immature Gran % (Auto) 0.2 (0.0-0.4) % Neut % (Auto) 69.5 (45-73) % Lymph % (Auto) 15.0 L (20-40) % Cavalier % (Auto) 10.7 (2-11) % Eos % (Auto) 4.4 H (0-4) % Baso % (Auto) 0.2 (0-2) % Lymph # (Auto) 1.4 (1.2-4.9) X10*3/uL Cavalier # (Auto) 1.0 (0.1-1.2) X10*3/uL Eos # (Auto) 0.4 (0.0-0.4) X10*3/uL Baso # (Auto) 0.0 (0.0-0.2) X10*3/uL Abs Immat Gran (auto) 0.02 (0.00-0.03) X10*3/uL Absolute Neuts (auto) 6.3 (2.0-8.3) x10*3/uL Absolute Nucleated RBC 0.000 (0.0-0.012) X10*3/uL Nucleated RBC % (auto) 0.0 (0.0-0.2) /100WBC PT 13.5 H (10.0-13.1) SEC INR 1.2 H (0.9-1.1) D-Dimer High Sensitivty 167 NG/ML Sodium 143 (135-145) mmol/L Potassium 3.9 (3.3-5.1) mmol/L Chloride 103 (96-108) mmol/L Carbon Dioxide 27 (22-29) mmol/L Anion Gap 17 (12-20) BUN 17 H (9-16) mg/dL Creatinine 0.68 (0.5-1.4) mg/dL Estim Creat Clear Calc 171.5 Estimated GFR > 60 Random Glucose 105 (60-115) mg/dL Lactic Acid (0.5-2.0) mmol/L Calcium 8.9 (8.4-10.2) mg/dL Total Bilirubin 0.4 (0.0-1.0) mg/dL AST 29 D (5-37) U/L ALT 22 (0-40) U/L Alkaline Phosphatase 166 H D (39-117) U/L Troponin I High Sens (<3.5-35.0) ng/L Total Protein 7.3 (6.5-8.0) g/dL Albumin 4.0 (3.5-5.0) g/dL COVID-19 ([facility]) (Negative) COVID-19 Clin Com 06/19/22 06/19/22 06/19/22 Range/Units 12:47 12:47 12:47 WBC (4.8-10.8) X10*3/uL RBC (4.60-5.80) X10*6/uL Hgb (14.0-18.0) g/dl Hct (42.0-52.0) % MCV (80.0-98.0) fL MCH (27.0-33.0) pg MCHC (31.0-36.0) g/dl RDW (11.0-16.0) % Plt Count (160-400) X10*3/uL MPV (9.4-12.4) fL Immature Gran % (Auto) (0.0-0.4) % Neut % (Auto) (45-73) % Lymph % (Auto) (20-40) % Cavalier % (Auto) (2-11) % Eos % (Auto) (0-4) % Baso % (Auto) (0-2) % Lymph # (Auto) (1.2-4.9) X10*3/uL Cavalier # (Auto) (0.1-1.2) X10*3/uL Eos # (Auto) (0.0-0.4) X10*3/uL Baso # (Auto) (0.0-0.2) X10*3/uL Abs Immat Gran (auto) (0.00-0.03) X10*3/uL Absolute Neuts (auto) (2.0-8.3) x10*3/uL Absolute Nucleated RBC (0.0-0.012) X10*3/uL Nucleated RBC % (auto) (0.0-0.2) /100WBC PT (10.0-13.1) SEC INR (0.9-1.1) D-Dimer High Sensitivty NG/ML Sodium (135-145) mmol/L Potassium (3.3-5.1) mmol/L Chloride (96-108) mmol/L Carbon Dioxide (22-29) mmol/L Anion Gap (12-20) BUN (9-16) mg/dL Creatinine (0.5-1.4) mg/dL Estim Creat Clear Calc Estimated GFR Random Glucose (60-115) mg/dL Lactic Acid 0.9 (0.5-2.0) mmol/L Calcium (8.4-10.2) mg/dL Total Bilirubin (0.0-1.0) mg/dL AST (5-37) U/L ALT (0-40) U/L Alkaline Phosphatase (39-117) U/L Troponin I High Sens 4.8 (<3.5-35.0) ng/L Total Protein (6.5-8.0) g/dL Albumin (3.5-5.0) g/dL COVID-19 ([facility]) Negative (Negative) COVID-19 Clin Com See Note Discharge Plan Discharge Clinical Impression: Gastroenteritis Patient Disposition: Xfer SNF Instructions: Gastroenteritis (ED) Additional Instructions: 1. Reanudar todos los medicamentos caseros seg?n lo prescrito. 2. Se le bradshaw proporcionado som receta para medicamentos contra las n?useas. Adem?s, se le bradshaw proporcionado som derivaci?n para seguimiento con cirug?a general para som mejor caracterizaci?n de los hallazgos de la TC y goetz relaci?n con sameer s?ntomas recurrentes de n?useas, v?mitos, diarrea. 3. Yaakov un seguimiento con goetz proveedor de atenci?n primaria en los pr?ximos 1 a 2 d?as para som reevaluaci?n. Regrese a la portia de emergencias si los s?ntomas empeoran. Prescriptions: New ondansetron 4 mg tablet,disintegrating 4 mg PO Q8H PRN (Reason: nausea and vomiting) Qty: 7 0RF No Action oxcarbazepine 150 mg Tablet 150 mg PO BID atorvastatin [Lipitor] 20 mg Tablet 20 mg PO BEDTIME benztropine 0.5 mg Tablet 0.5 mg PO BID haloperidol 5 mg Tablet 15 mg PO BID propranolol 10 mg Tablet 10 mg PO TID diazepam 2 mg Tablet 0.5 mg PO BID gabapentin 300 mg Capsule 300 mg PO TID omeprazole 20 mg Capsule,Delayed Release(Dr/Ec) 20 mg PO DAILY oxybutynin chloride 5 mg Tablet 5 mg PO BID apixaban 2.5 mg Tablet 2.5 mg PO BID multivitamin Tablet 1 tab PO DAILY sennosides [senna] 8.6 mg Tablet 8.6 mg PO DAILY PRN (Reason: Constipation) acetaminophen 325 mg Tablet 650 mg PO TID betamethasone valerate 0.1 % Cream 1 appl TOPICAL BID Rx Instructions: Apply to face metronidazole 0.75 % Cream 1 appl TOPICAL BID Rx Instructions: Apply to face ibuprofen 200 mg Tablet 200 mg PO Q6H PRN (Reason: pain or fever) Sebex 2-2 % Shampoo 1 appl TOPICAL DAILY Rx Instructions: massage into wet scalp; leave on for 5 mins ; rinse; repeat application Balmex Adult Care 11.3 % Cream 1 appl TOPICAL QSHIFT Referrals: Per Deleon MD [Physician] - (51-year-old male, history TBI/schizophrenia, recurrent episodes of ER visits for nausea/vomiting/diarrhea but always able to be controlled and tolerating p.o. prior to discharge and on review of CT scans descriptions of ?Yazmin mesentery? documented and would appreciate further characterization regarding this CT finding in relation to patient's recurring symptoms. Thank you) Print Language: Estonian
[2022-06-19 12:54] LABS: MANUAL DIFF FLAG NO
[2022-06-19 12:56] LABS: Basophils Percent Auto 0.2 % (0-2); Eosinophils Absolute Auto 0.4 X10*3/uL (0.0-0.4); Eosinophils Percent Auto 4.4 % (0-4); Hematocrit 41.1 % (42.0-52.0); Hemoglobin 12.8 g/dl (14.0-18.0); Imm Gran Abs Auto 0.02 X10*3/uL (0.00-0.03); Imm Gran Pct Auto 0.2 % (0.0-0.4); Lymphocytes Absolute Auto 1.4 X10*3/uL (1.2-4.9); Mean Corpuscular HGB Conc 31.1 g/dl (31.0-36.0); Mean Corpuscular Hemoglobin 23.5 pg (27.0-33.0); Mean Corpuscular Volume 75.6 fL (80.0-98.0); Monocytes Percent Auto 10.7 % (2-11); Neutrophils Absolute Auto 6.3 x10*3/uL (2.0-8.3); Neutrophils Percent Auto 69.5 % (45-73); Platelet Count 261 X10*3/uL (160-400); Red Blood Count 5.44 X10*6/uL (4.60-5.80); Red Cell Distribution Width 15.5 % (11.0-16.0)
[2022-06-19 13:02] LABS: INTERNATIONAL NORM RATIO 1.2 (0.9-1.1); Prothrombin Time 13.5 SEC (10.0-13.1)
[2022-06-19 13:04] LABS: D Dimer High Sensitivity 167 NG/ML
[2022-06-19 13:14] LABS: COVID-19 Test Negative (Negative); IDNOW Serial# 16C4AD1C
[2022-06-19 13:15] LABS: Lactic Acid 0.9 mmol/L (0.5-2.0)
[2022-06-19 13:26] LABS: Alanine Aminotransferase 22 U/L (0-40); Alkaline Phosphatase 166 U/L (39-117); Anion Gap 17 (12-20); Aspartate Amino Transferase 29 U/L (5-37); Bilirubin Total 0.4 mg/dL (0.0-1.0); Blood Urea Nitrogen 17 mg/dL (9-16); Calcium 8.9 mg/dL (8.4-10.2); Carbon Dioxide 27 mmol/L (22-29); Chloride 103 mmol/L (96-108); Creatinine Clr Calc Pharmacy 171.5; Estimated Glomerular Filt Rate > 60; Glucose Random 105 mg/dL (60-115); Potassium 3.9 mmol/L (3.3-5.1); Sodium 143 mmol/L (135-145); Total Protein 7.3 g/dL (6.5-8.0)
[2022-06-19 13:28] LABS: Troponin-I High Sensitivity 4.8 ng/L (<3.5-35.0)
[2022-06-19] MEDS: 0.9 % Sodium Chloride 1,000 ML 999 ML IV (13:40)
[2022-06-19] MEDS: ondansetron HCL 4 MG/2 ML VIAL IVPUSH (13:41)
[2022-06-19] MEDS: iohexoL 300 MG/ML 100 ML INFUS..BTL IV (15:03)
[2022-06-19 15:17] VITALS: BP 91/50; PULSE 95; RESP 18; TEMP 36.6; O2SAT 95
[2022-06-19 16:40] VITALS: BP 106/70; PULSE 82; RESP 20; TEMP 36.3; O2SAT 97
[2022-06-19 17:39] VITALS: BP 127/74; PULSE 94; RESP 16; TEMP 36.6; O2SAT 98
--- NOTE | 2022-06-19 17:49 | PC.NURSE ---
This Us/Pct called [facility] at 1724 spoke with Grazyna for a Bls transfer back to [facility] per . Eta 20mins. Ems arrived at 1740,Rn aware
== END 2022-06-19 17:47 | disposition skilled nursing facility (03) ==
PROVIDERS: Emergency Provider Student in an Organized Health Care Education/Training Program
DX: K52.9 Noninfective gastroenteritis and colitis, unspecified (principal); R11.2 Nausea with vomiting, unspecified; Z79.899 Other long term (current) drug therapy; Z20.822 Contact with and (suspected) exposure to COVID-19
CPT/HCPCS: 36415; 71045; 74177; 80053; 83605; 84484; 85025; 85379; 85610; 87040; 87635; 96365; 96375; 99284; J2405; Q9967

== ENCOUNTER → 2022-08-03 13:55 | Outpatient (BNVA) | payer MEDICARE, MEDICAID, SELFPAY | PROVIDERS: PCP Hospitalist; Visit Provider Nurse Practitioner | DX: R11.2 Nausea with vomiting, unspecified (principal) | CPT/HCPCS: 99202 ==

== ENCOUNTER → 2023-02-10 08:53 | Outpatient (BNVA) | payer MEDICARE, MEDICAID, SELFPAY | PROVIDERS: PCP Hospitalist; Visit Provider Nurse Practitioner | DX: K21.9 Gastro-esophageal reflux disease without esophagitis (principal); F20.9 Schizophrenia, unspecified; F03.90 Unspecified dementia, unspecified severity, without behavioral disturbance, psychotic disturbance, mood disturbance, and anxiety; S06.9X9A Unspecified intracranial injury with loss of consciousness of unspecified duration, initial encounter; Z74.01 Bed confinement status | CPT/HCPCS: 99212 ==

== ENCOUNTER 2023-03-16 10:11 | Day surgery (SDC) | payer MEDICARE, MEDICAID, SELFPAY ==
--- NOTE | 2023-03-15 14:11 | P.CONAN_ITS ---
HPI - Anesthesia Eval Consult details Narrative: 52yo M for [facility] Active Problems Active Problems: All Active Problems (Updated 02/10/23 @ 10:30 by MICHELLE Grewal) TBI (traumatic brain injury) (Acute) Schizophrenia (Acute) Cellulitis (Acute) Seizures (Acute) Urinary incontinence (Acute) Dementia (Acute) Rheumatic heart disease (Acute) GERD (gastroesophageal reflux disease) (Acute) Constipation (Acute) Flexion contractures (Acute) Bedbound (Acute) Nausea and vomiting (Acute) Past Medical History Medical History Abscess Chronic pain syndrome COPD (chronic obstructive pulmonary disease) Dementia Obesity Schizophrenia TBI (traumatic brain injury) Social History Social History Household Members: Other Household Members Other:: patient from [facility] Housing: Half-Way Are you a primary career services assistant to a significant other at home: No Do you presently have visiting nurse or other home services: No Unable to assess alcohol history related to: Unknown Alcohol intake: unknown Patient Tobacco Use Status: Never used Tobacco Meds Allergies Allergy/AdvReac Type Severity Reaction Status Date / Time No Known Allergies* Allergy Unknown Uncoded 11/18/22 15:12 Home Medications Medication Instructions Recorded Confirmed Last Taken Type apixaban 2.5 mg tablet 2.5 mg PO BID 07/26/21 11/18/22 03/06/23 History atorvastatin 20 mg tablet (Lipitor) 20 mg PO BEDTIME 07/26/21 11/18/22 Unknown History benztropine 0.5 mg tablet 0.5 mg PO BID 07/26/21 11/18/22 Unknown History diazepam 2 mg tablet 1 mg PO BID 07/26/21 11/18/22 03/16/23 History gabapentin 300 mg capsule 300 mg PO TID 07/26/21 11/18/22 03/16/23 History haloperidol 5 mg tablet 15 mg PO BID 07/26/21 11/18/22 03/16/23 History omeprazole 20 mg capsule,delayed 20 mg PO DAILY 07/26/21 11/18/22 03/16/23 History release oxcarbazepine 150 mg tablet 150 mg PO BID 07/26/21 11/18/22 03/16/23 History oxybutynin chloride 5 mg tablet 5 mg PO BID 07/26/21 11/18/22 03/16/23 History propranolol 10 mg tablet 10 mg PO TID 07/26/21 11/18/22 03/16/23 History acetaminophen 325 mg tablet 650 mg PO TID 02/11/22 11/18/22 Unknown History betamethasone valerate 0.1 % 1 appl topical BID 02/11/22 11/18/22 Unknown History topical cream ibuprofen 200 mg tablet 200 mg PO Q6H PRN pain or fever 02/11/22 11/18/22 03/06/23 History metronidazole 0.75 % topical cream 1 appl topical BID 02/11/22 11/18/22 Unknown History multivitamin 1 tab PO DAILY 02/11/22 11/18/22 Unknown History salicylic acid-sulfur 2 %-2 % 1 appl topical DAILY 02/11/22 11/18/22 Unknown History shampoo (Sebex) sennosides 8.6 mg tablet (senna) 8.6 mg PO DAILY PRN Constipation 02/11/22 11/18/22 Unknown History zinc oxide-vitamin B5-vit E 11.3% 1 appl topical QSHIFT 02/11/22 11/18/22 Unknown History topical cream (Balmex Adult Care) tramadol 50 mg tablet 50 mg PO BID PRN Pain 08/03/22 11/18/22 03/16/23 History Fiber Powder 1 tsp PO TID 11/18/22 11/18/22 Unknown History bisacodyl 10 mg rectal suppository 10 mg UT DAILY PRN Constipation 11/18/22 11/18/22 Unknown History docusate sodium 100 mg capsule 100 mg PO BID 11/18/22 11/18/22 03/16/23 History (Colace) naloxone 4 mg/actuation nasal 1 spray intranasal Q3M PRN Opioid 11/18/22 11/18/22 Unknown History spray (Narcan) Overdose Exam Exam Date and Time: March 15, 2023 141 Narrative Narrative: EKG 2021 Vent. Rate : 096 BPM ? ? Atrial Rate : 096 BPM ?? P-R Int : 132 ms? QRS Dur : 084 ms ? ? QT Int : 344 ms ? ? ? P-R-T Axes : 012 -10 000 degrees ?? QTc Int : 434 ms ? Normal sinus rhythm Normal ECG When compared with ECG of 28-OCT-2021 12:20, No significant change was found Assessment and Plan Assessment Anesthesia Assessment: Chart Reviewed
[2023-03-16 08:42] VITALS: BMI 35.6
[2023-03-16 10:48] VITALS: BP 109/74; PULSE 87; RESP 18; TEMP 36.4; O2SAT 98
--- NOTE | 2023-03-16 10:57 | MHC.SHP ---
Pre-Procedural Eval Section A Date of Service: 03/16/23 Section B Chief Complaint: nausea Relevant Family History (Specify if Yes): No Relevant Social History: None Present Medications: see Short Stay Collaborative assessment Medical History: Significant History (Abscess Chronic pain syndrome COPD (chronic obstructive pulmonary disease) Dementia Obesity Schizophrenia TBI (traumatic brain injury)) History of Previous Operations: No relevant previous surgery Allergies: Allergies Allergy/AdvReac Type Severity Reaction Status Date / Time No Known Allergies* Allergy Unknown Uncoded 11/18/22 15:12 Review of Systems Sugical H&P ROS: Negative: Constitution, Cardiovascular, Respiratory, Neurological, Psychiatric, Hem-Onc, Allergic/Immunologic, Gastrointestinal, Genitourinary, Musculoskeletal, Integumentary, Endocrine and Eyes/Ears/Nose/Throat Exam Surgical H&P Exam: Normal: HEENT, Normal: Heart, Normal: Lungs, Normal: Extremities, Normal: Abdomen and Normal: Skin and Significant Findings: Neurological ( bedbound) Plan Diagnosis/Plan: Unchanged I have reviewed the history and physical and performed a pertinent physical examination on my patient. No changes have occurred unless specified. Time Spent With Patient Time: Total time managing care of this patient today ____ minutes.
--- NOTE | 2023-03-16 11:08 | HO.ANESPROP2 ---
[facility] Active Problems Active Problems: All Active Problems (Updated 02/10/23 @ 10:30 by MICHELLE Grewal) TBI (traumatic brain injury) (Acute) Schizophrenia (Acute) Cellulitis (Acute) Seizures (Acute) Urinary incontinence (Acute) Dementia (Acute) Rheumatic heart disease (Acute) GERD (gastroesophageal reflux disease) (Acute) Constipation (Acute) Flexion contractures (Acute) Bedbound (Acute) Nausea and vomiting (Acute) Past Medical History Medical History Abscess Chronic pain syndrome COPD (chronic obstructive pulmonary disease) Dementia Obesity Schizophrenia TBI (traumatic brain injury) Social History Social History Household Members: Other Household Members Other:: patient from [facility] Housing: Shelter Are you a primary home health caregiver to a significant other at home: No Do you presently have visiting nurse or other home services: No Unable to assess alcohol history related to: Unknown Alcohol intake: unknown Patient Tobacco Use Status: Never used Tobacco Are you DNR?: No Advance Directives: No Advance Directives Information Provided: Yes Nutrition Risks: No Nutritional Risk Meds Allergies Allergy/AdvReac Type Severity Reaction Status Date / Time No Known Allergies* Allergy Unknown Uncoded 11/18/22 15:12 Active Medications: Current Medications Albuterol Sulfate (Albuterol Sulfate (0.083%) 2.5 Mg/3 Ml Vial.Neb) 2.5 mg INHALE ONCE PRN PRN Reason: Shortness of Breath/Wheezing Lactated Ringer's (Lr) 1,000 mls @ 100 mls/hr IVCONT .Q10H [facility] Home Medications Medication Instructions Recorded Confirmed Last Taken Type apixaban 2.5 mg tablet 2.5 mg PO BID 07/26/21 11/18/22 03/06/23 History atorvastatin 20 mg tablet (Lipitor) 20 mg PO BEDTIME 07/26/21 11/18/22 Unknown History benztropine 0.5 mg tablet 0.5 mg PO BID 07/26/21 11/18/22 Unknown History diazepam 2 mg tablet 1 mg PO BID 07/26/21 11/18/22 03/16/23 History gabapentin 300 mg capsule 300 mg PO TID 07/26/21 11/18/22 03/16/23 History haloperidol 5 mg tablet 15 mg PO BID 07/26/21 11/18/22 03/16/23 History omeprazole 20 mg capsule,delayed 20 mg PO DAILY 07/26/21 11/18/22 03/16/23 History release oxcarbazepine 150 mg tablet 150 mg PO BID 07/26/21 11/18/22 03/16/23 History oxybutynin chloride 5 mg tablet 5 mg PO BID 07/26/21 11/18/22 03/16/23 History propranolol 10 mg tablet 10 mg PO TID 07/26/21 11/18/22 03/16/23 History acetaminophen 325 mg tablet 650 mg PO TID 02/11/22 11/18/22 Unknown History betamethasone valerate 0.1 % 1 appl topical BID 02/11/22 11/18/22 Unknown History topical cream ibuprofen 200 mg tablet 200 mg PO Q6H PRN pain or fever 02/11/22 11/18/22 03/06/23 History metronidazole 0.75 % topical cream 1 appl topical BID 02/11/22 11/18/22 Unknown History multivitamin 1 tab PO DAILY 02/11/22 11/18/22 Unknown History salicylic acid-sulfur 2 %-2 % 1 appl topical DAILY 02/11/22 11/18/22 Unknown History shampoo (Sebex) sennosides 8.6 mg tablet (senna) 8.6 mg PO DAILY PRN Constipation 02/11/22 11/18/22 Unknown History zinc oxide-vitamin B5-vit E 11.3% 1 appl topical QSHIFT 02/11/22 11/18/22 Unknown History topical cream (Balmex Adult Care) tramadol 50 mg tablet 50 mg PO BID PRN Pain 08/03/22 11/18/22 03/16/23 History Fiber Powder 1 tsp PO TID 11/18/22 11/18/22 Unknown History bisacodyl 10 mg rectal suppository [address] DAILY PRN Constipation 11/18/22 11/18/22 Unknown History docusate sodium 100 mg capsule 100 mg PO BID 11/18/22 11/18/22 03/16/23 History (Colace) naloxone 4 mg/actuation nasal 1 spray intranasal Q3M PRN Opioid 11/18/22 11/18/22 Unknown History spray (Narcan) Overdose Exam Exam Date and Time: March 16, 2023 1108 Height,Weight and Vital Signs: Height 6 ft Weight 119.4 kg Last Vital Signs Temp 97.5 F 03/16/23 10:48 Pulse 87 03/16/23 10:48 Resp 18 03/16/23 10:48 BP 109/74 03/16/23 10:48 Pulse Ox 98 03/16/23 10:48 O2 Del Method Room Air 03/16/23 10:48 Airway Mallampati Class: III TM Dist: >3cm Neck ROM: Full Heart: RRR Lungs: CTA Assessment and Plan Final Anesthetic Review ASA Class: III Final Preanesthetic Review: Meds/Allgs Chart Reviewed, Consent Obtained/Reviewed and Anes Risks/Benef Reviewed Patient Risk: Intermediate Procedure Risk: Low Anesthetic Plan Anesthetic Plan: MAC: Disposition: Standard PACU
--- NOTE | 2023-03-16 11:31 | W.PM.OPN ---
Operative Note Operative Note Date of Service: 03/16/23 Narrative: Procedure Description: EGD Indication: nausea, vomiting Anesthesia: MAC FLEXIBLE TRANSORAL UPPER GASTROINTESTINAL ENDOSCOPY UPPER ENDOSCOPY Consent: Indications for the procedure and potential complications of bleeding, perforation, reaction to medications and missed diagnosis were discussed with the patient and informed consent was obtained. Instrument: Olympus GIF H 190 J mid size upper endoscope Monitoring: Vital signs and clinical assessment, continuous EKG monitoring, Pulse oximetry, Carbon Dioxide monitoring and blood pressure monitoring were done throughout the procedure. Procedure: The patient was placed in the left lateral decubitis position and pre-procedure medications were administered and a bite block was placed. The endoscope was inserted into the mouth and advanced under direct vision to the third part of duodenum. A careful inspection was made as the upper endoscope was withdrawn including a retroflexed examination of the proximal stomach; Findings and interventions are described below. Findings: Larynx:normal Esophagus: GE junction at 38 cm, diaphragm hiatus at 38 cm, some edema and bogginess at GEJ, bx taken also from distal and proximal esophagus Stomach: Patchy gastric erythema. Biopsies were obtained. Grade 2 flap valve on retroflexed examination of the cardia. There was also bile acid refluxate noted in stomach. There was reduced gastric movement. Duodenum: Normal bulb and descending duodenum, bx taken, lots of chyme seen Intervention: Biopsies as noted above Impression/Findings: bile acid reflux into the stomach gastritis esophagitis possible gastroparesis PLAN: await bx if h pylori pos treat can try cholestyramine or low dose reglan to see if helps sx reflux precautions
[2023-03-16 11:44] VITALS: BP 97/70; PULSE 82; RESP 16; TEMP 36.7; O2SAT 92
[2023-03-16 12:00] VITALS: BP 102/71; PULSE 84; RESP 16; O2SAT 91
[2023-03-16 12:15] VITALS: BP 111/68; PULSE 79; RESP 16; O2SAT 93
[2023-03-16 12:30] VITALS: BP 131/74; PULSE 84; RESP 20; TEMP 36.4; O2SAT 94
== END 2023-03-16 13:20 | disposition home or self-care (01) ==
PROVIDERS: PCP Hospitalist; Visit Provider Internal Medicine Gastroenterology
PROC: 0DJ08ZZ Inspection of Upper Intestinal Tract, Via Natural or Artificial Opening Endoscopic (ICD-10-PCS; CPT 43235; principal; 2023-03-16 12:40)
DX: K21.9 Gastro-esophageal reflux disease without esophagitis (principal); R11.2 Nausea with vomiting, unspecified; K29.50 Unspecified chronic gastritis without bleeding; K20.80 Other esophagitis without bleeding; K44.9 Diaphragmatic hernia without obstruction or gangrene; R47.9 Unspecified speech disturbances; F03.90 Unspecified dementia, unspecified severity, without behavioral disturbance, psychotic disturbance, mood disturbance, and anxiety; F20.9 Schizophrenia, unspecified; Z87.820 Personal history of traumatic brain injury; Z74.01 Bed confinement status; J44.9 Chronic obstructive pulmonary disease, unspecified; I09.9 Rheumatic heart disease, unspecified; G89.4 Chronic pain syndrome; R56.9 Unspecified convulsions; L03.90 Cellulitis, unspecified; Z79.01 Long term (current) use of anticoagulants; Z79.899 Other long term (current) drug therapy
CPT/HCPCS: 43239; 88305; 88342; J3010

== ENCOUNTER → 2023-04-13 08:22 | Outpatient (BNVA) | payer MEDICARE, MEDICAID, SELFPAY | PROVIDERS: PCP Hospitalist; Visit Provider Nurse Practitioner | DX: K21.9 Gastro-esophageal reflux disease without esophagitis (principal); K59.00 Constipation, unspecified; R11.2 Nausea with vomiting, unspecified; F20.9 Schizophrenia, unspecified; F03.90 Unspecified dementia, unspecified severity, without behavioral disturbance, psychotic disturbance, mood disturbance, and anxiety; S06.9X9D Unspecified intracranial injury with loss of consciousness of unspecified duration, subsequent encounter | CPT/HCPCS: 99212 ==

== ENCOUNTER 2025-10-21 09:14 | Emergency (ER) | payer MEDICARE, MEDICAID, SELFPAY ==
--- NOTE | ~2025-10-21 | XR_ITS ---
EXAMINATION: XR SHOULDER, RIGHT CLINICAL INFORMATION: pain COMPARISON: None available. TECHNIQUE: Three views of the right shoulder. FINDINGS: AC joint is mildly degenerated. It is intact. Clinical data humeral joint does not appear dislocated. No fracture is identified. XR/XR shoulder RT min 2V IMPRESSION: Mild AC joint arthropathy, otherwise unremarkable exam. Electronically signed by: Carlos Candelaria MD 10/21/2025 10:04 AM [facility]
[2025-10-21 09:22] VITALS: BP 146/96; PULSE 86; O2SAT 95
[2025-10-21 09:28] VITALS: BP 109/69; PULSE 91; RESP 16; TEMP 36.4; O2SAT 95; BMI 37.5
--- NOTE | 2025-10-21 09:37 | ECG_ITS ---
Test Reason : shldr pain Blood Pressure : */* mmHG Vent. Rate : 83 BPM Atrial Rate : 83 BPM P-R Int : 164 ms QRS Dur : 90 ms QT Int : 358 ms P-R-T Axes : 41 23 2 degrees QTcB Int : 420 ms Normal sinus rhythm Normal ECG When compared with ECG of 11-Feb-2022 13:19, No significant change was found Referred By: Amaury Sanders Electronically Signed By: SHRUTI ZAMARRIPA
--- NOTE | 2025-10-21 09:56 | ED.EXTPRO ---
HPI - Extremity Problem General Chief complaint: Extremity Injury, Upper Stated complaint: SHOULDER PAIN Time Seen by Provider: 10/21/25 09:31 Source: EMS, RN notes reviewed (from [facility]) and old records reviewed Mode of arrival: EMS Limitations: other (TBI, able to answer some questions) History of Present Illness ED Provider: HPI Narrative: 55-year-old male, presenting from [facility] reports shoulder pain for the past 3 weeks, patient is able to concur to some of these questions but he is somewhat of a limited historian due to traumatic brain injury, mostly bed-bound no reports of trauma or fevers, they were concerned that his shoulder is hurting but also that it may appear to be out of place according to the paperwork sent with him. The patient unable to lift his shoulder actively. There were no reports of fevers or chills. Related Data Home Medications ?Medication ?Instructions ?Recorded ?Confirmed apixaban 2.5 mg tablet 2.5 mg PO BID 07/26/21 11/18/22 atorvastatin 20 mg tablet (Lipitor) 20 mg PO BEDTIME 07/26/21 11/18/22 benztropine 0.5 mg tablet 0.5 mg PO BID 07/26/21 11/18/22 diazepam 2 mg tablet 1 mg PO BID 07/26/21 11/18/22 gabapentin 300 mg capsule 300 mg PO TID 07/26/21 11/18/22 haloperidol 5 mg tablet 15 mg PO BID 07/26/21 11/18/22 omeprazole 20 mg capsule,delayed 20 mg PO DAILY 07/26/21 11/18/22 release oxcarbazepine 150 mg tablet 150 mg PO BID 07/26/21 11/18/22 oxybutynin chloride 5 mg tablet 5 mg PO BID 07/26/21 11/18/22 propranolol 10 mg tablet 10 mg PO TID 07/26/21 11/18/22 acetaminophen 325 mg tablet 650 mg PO TID 02/11/22 11/18/22 betamethasone valerate 0.1 % 1 appl topical BID 02/11/22 11/18/22 topical cream ibuprofen 200 mg tablet 200 mg PO Q6H PRN pain or fever 02/11/22 11/18/22 metronidazole 0.75 % topical cream 1 appl topical BID 02/11/22 11/18/22 multivitamin 1 tab PO DAILY 02/11/22 11/18/22 salicylic acid-sulfur 2 %-2 % 1 appl topical DAILY 02/11/22 11/18/22 shampoo (Sebex) sennosides 8.6 mg tablet (senna) 8.6 mg PO DAILY PRN Constipation 02/11/22 11/18/22 zinc oxide-vitamin B5-vit E 11.3% 1 appl topical QSHIFT 02/11/22 11/18/22 topical cream (Balmex Adult Care) tramadol 50 mg tablet 50 mg PO BID PRN Pain 08/03/22 11/18/22 Fiber Powder 1 tsp PO TID 11/18/22 11/18/22 bisacodyl 10 mg rectal suppository 10 mg NH DAILY PRN Constipation 11/18/22 11/18/22 docusate sodium 100 mg capsule 100 mg PO BID 11/18/22 11/18/22 (Colace) naloxone 4 mg/actuation nasal 1 spray intranasal Q3M PRN Opioid 11/18/22 11/18/22 spray (Narcan) Overdose Previous Rx's ?Medication ?Instructions ?Recorded ondansetron 4 mg disintegrating 4 mg PO Q8H PRN nausea and 06/19/22 tablet vomiting #7 tabs methylprednisolone 4 mg tablets in 4 mg PO DAILY #21 ea 10/21/25 a dose pack (Medrol (Srinivasan)) Allergies Allergy/AdvReac Type Severity Reaction Status Date / Time No Known Allergies* Allergy Unknown Uncoded 10/21/25 09:31 Review of Systems Constitutional: Constitutional: Reports as per [facility] Past Medical History Medical History Dementia Abscess Chronic pain syndrome Schizophrenia TBI (traumatic brain injury) Obesity COPD (chronic obstructive pulmonary disease) Social History Social History Household Members: Other Household Members Other:: patient from [facility] Housing: Shelter Are you a primary vision care associate to a significant other at home: No Do you presently have visiting nurse or other home services: No Alcohol intake: unknown Comment: bed bound Patient Tobacco Use Status: Never used Tobacco Advance Directives: Yes Advance Directives on File: Yes Advance Directives Date on File: 03/17/23 Physical Exam Exam: Exam: ?General: ??Chronically ill-appearing older than stated age ?No facial trauma No tenderness along the neck no bruising to the back ?CV: S1-S2 radial pulses +2 bilaterally ?Resp: ?No wheezing rales rhonchi no stridor moving air well Abd: ?Obese, bowel sounds present MSK: Likely fusion right lower extremity unable to flex hip or knee, distal dressing in place, distal pulses in place, left knee contracted Unable to lift right shoulder, no fluctuance, no deformity, with the pain able to bring his range of motion passively through forward flexion and ab duction, distal pulses intact No subcutaneous emphysema Skin: Warm, dry, intact, ?Neuro: ?Alert and oriented x3, moving upper and lower extremities symmetrically, no obvious facial asymmetry noted, cranial nerves 2-12 intact Vital Signs: Vital Signs: Last Vital Signs Temp 97.5 F 10/21/25 09:28 Pulse 91 10/21/25 09:28 Resp 16 10/21/25 09:28 BP 109/69 10/21/25 09:28 Pulse Ox 95 10/21/25 09:28 O2 Del Method Room Air 10/21/25 09:28 BMI result Body Mass Index 37.5 Medical Decision Making Medical Decision Making MDM Narrative: 9:59 AM 10/21/2025 (Dr. Amaury Sanders): Chronic pain over 2 weeks, nontraumatic, no fevers I do not suspect infectious etiology such as abscess or septic joint I do not appreciate any deformity, patient is large male with difficult to appreciate anatomy actually, with that said no evidence for adhesive capsulitis or dislocation, rotator cuff is likely torn he is not able to lift his arm, he is on blood thinners does not appear to be diabetic, may prescribe steroids, we will obtain x-ray to evaluate for fracture dislocation etc. but low suspicion for that based on exam, did not feel further blood work is indicated, obtain ECG to make sure this is not cardiac but this was low suspicion for that Differential Diagnosis Differential Diagnoses: The differential diagnosis associated with the presentation includes (Dislocation, fracture, rotator cuff injury, impingement, adhesive capsulitis, septic joint,) Admission/Observation Consideration of admission/observation: Escalation of care including admission/observation considered Independent Interpretation I performed an independent interpretation of an: EKG (83 beats per minute otherwise normal ECG without dysrhythmia, AV rinku blocks or ST-T changes to suspect underlying ACS, my independent interpretation) and Plain X-Ray (There was no fracture or dislocation there is some AC joint arthritis) Radiology Impression Discussion of test interpretation with radiology: I have reviewed the radiologist's reading. Tests considered The following testing was considered but not selected: CBC, BMP Prescription Management I considered prescription management with: Pain Medication Chronic Conditions Patient?s care impacted by: Other (Bed-bound, traumatic brain injury, chronic pain) Discharge Plan Discharge Clinical Impression: Chronic pain in right shoulder Additional Instructions: There was no evidence for deformity to right shoulder, patient has not able to lift his right arm, unable to exclude rotator cuff issue he may have a torn rotator cuff this may be chronic, possibly inflammation, x-ray without fracture or dislocation there is some arthritis of the AC joint, ECG unremarkable, big bag of ice to that shoulder every day 20 minutes, Tylenol 975 mg every 6 hours for pain control, and patient has a blood thinners unable to take anti-inflammatories but I can put him on a Medrol Dosepak, further care by PCP, consider referral to Orthopedics Prescriptions: New methylprednisolone [Medrol (Srinivasan)] 4 mg tablets,dose pack 4 mg PO DAILY Qty: 21 0RF Rx Instructions: Day 1: 24 mg on day 1 administered as 8 mg before breakfast, 4 mg after lunch, 4 mg after supper, and 8 mg at bedtime or 24 mg as a single dose or divided into 2 or 3 doses upon initiation. Day 2: 20 mg on day 2 administered as 4 mg before breakfast, 4 mg after lunch, 4 mg after supper, and 8 mg at bedtime. Day 3: 16 mg on day 3 administered as 4 mg before breakfast, 4 mg after lunch, 4 mg after supper, and 4 mg at bedtime. Day 4: 12 mg on day 4 administered as 4 mg before breakfast, 4 mg after lunch, and 4 mg at bedtime. Day 5: 8 mg on day 5 administered as 4 mg before breakfast and 4 mg at bedtime. Day 6: 4 mg on day 6 administered as 4 mg before breakfast. No Action oxcarbazepine 150 mg Tablet 150 mg PO BID atorvastatin [Lipitor] 20 mg Tablet 20 mg PO BEDTIME benztropine 0.5 mg Tablet 0.5 mg PO BID haloperidol 5 mg Tablet 15 mg PO BID propranolol 10 mg Tablet 10 mg PO TID diazepam 2 mg Tablet 1 mg PO BID gabapentin 300 mg Capsule 300 mg PO TID omeprazole 20 mg Capsule,Delayed Release(Dr/Ec) 20 mg PO DAILY oxybutynin chloride 5 mg Tablet 5 mg PO BID apixaban 2.5 mg Tablet 2.5 mg PO BID multivitamin Tablet 1 tab PO DAILY sennosides [senna] 8.6 mg Tablet 8.6 mg PO DAILY PRN (Reason: Constipation) acetaminophen 325 mg Tablet 650 mg PO TID betamethasone valerate 0.1 % Cream 1 appl TOPICAL BID Rx Instructions: Apply to face metronidazole 0.75 % Cream 1 appl TOPICAL BID Rx Instructions: Apply to face ibuprofen 200 mg Tablet 200 mg PO Q6H PRN (Reason: pain or fever) Sebex 2-2 % Shampoo 1 appl TOPICAL DAILY Rx Instructions: massage into wet scalp; leave on for 5 mins ; rinse; repeat application Balmex Adult Care 11.3 % Cream 1 appl TOPICAL QSHIFT ondansetron 4 mg tablet,disintegrating 4 mg PO Q8H PRN (Reason: nausea and vomiting) Qty: 7 0RF bisacodyl 10 mg Suppository 10 mg NH DAILY PRN (Reason: Constipation) docusate sodium [Colace] 100 mg Capsule 100 mg PO BID naloxone [Narcan] 4 mg/actuation [place],Non-Aerosol 1 spray INTRANASAL Q3M PRN (Reason: Opioid Overdose) Rx Instructions: spray 1 dose into ONE nostril; alternate nostrils w each dose until help arrives Fiber Powder 1 tsp PO TID tramadol 50 mg tablet 50 mg PO BID PRN (Reason: Pain) Print Language: Citizen [place]
[2025-10-21 10:45] VITALS: BP 109/69; PULSE 91; RESP 16; TEMP 36.4; O2SAT 95
--- NOTE | 2025-10-21 11:01 | PC.NURSE ---
Report called to nurse Dick at [facility]
--- OUTSIDE RECORDS SUMMARY | 2025-10-21 11:54 | XMS_ITS | Clinical Summary ---
Author Organization [address] [facility] Address [address] [place] [address] Phone Care Team Providers Care Library Information Technician Name Role Phone Ricardo Goode MD Primary Care Provider [phone] Encounters Date Type Department Care Team Description 08/25/2025 Lab Requisition [facility] [address] [place] [address] Ricardo Goode MD Hyperlipidemia, unspecified; Acute rheumatic heart disease, unspecified 07/31/2025 Lab Requisition [facility] [address] [place] [address] Ricardo Goode MD Hyperlipidemia, unspecified from Last 3 Months Social History Tobacco Use Types Packs/Day Years Used Date Smoking Tobacco: Never Assessed Sex and Gender Information Value Date Recorded Sex Assigned at Not on file Legal Sex Male 1:55 PM EST Gender Identity Not on file Sexual Orientation Not on file Plan of Treatment Health Maintenance Due Date Last Done Comments Colorectal Cancer Screening: Colonoscopy 1970 DTaP,Tdap,and Td Vaccines (1 - Tdap) 1989 Hepatitis B Vaccines (1 of 3 - 19+ 3-dose series) 1989 Pneumococcal Vaccine: 50+ Ye ars (1 of 1 - PCV) 2020 Zoster Vaccines (1 of 2) 2020 HIV Screening 10/19/2022 Hepatitis C Screening 10/19/2022 Medicare Annual Wellness Visit 10/19/2022 Social Influencers of Health Screening 10/19/2022 Depression Screening 11/20/2024 COVID-19 Vaccine (1 - 2024-2 6 season) 2025 Influenza Vaccine (#1) 2025 Cholesterol Screening (Lipid Panel) 07/31/2030 07/31/2025 RSV Immunization Adult Patie nts (1 - 1-dose 75+ series) 2045 HIB Vaccines Aged Out No longer eligi ble based on patient's age to complete this topic HPV Vaccines Aged Out No longer eligi ble based on patient's age to complete this topic Hepatitis A Vaccines Aged Out No long er eligible based on patient's age to complete this topic IPV Vaccines Aged Out No longer eligi ble based on patient's age to complete this topic MMR Vaccines Aged Out No longer eligi ble based on patient's age to complete this topic Meningococcal ACWY Vaccine Aged Out N o longer eligible based on patient's age to complete this topic Meningococcal B Vaccine Aged Out No l onger eligible based on patient's age to complete this topic RSV Immunization Patients Un lucien 20 months Aged Out No longer eligible b ased on patient's age to complete this topic Varicella Vaccines Aged Out No longer eligible based on patient's age to complete this topic Procedures Procedure Name Priority Date/Time Associated Diagnosis Comments COMPLETE BLOOD COUNT Routine 08/25/2025 6:57 AM EDT Hyperlipidemia, unspecified Acute rheumatic heart disease, unspecified HEPATIC FUNCTION PANEL Routine 6:57 AM EDT Hyperlipidemia, unspecified Acute rheumatic heart disease, unspecified COMPREHENSIVE METABOLIC PANEL Routine 08/25/2025 6:57 AM EDT Hyperlipidemia, unspecified Acute rheumatic heart disease, unspecified LIPID PANEL WITH REFLEX TO DIRECT LDL Routine 07/31/2025 6:46 AM EDT Hyperlipidemia, unspecified from Last 3 Months Results * (ABNORMAL) Complete blood count (08/25/2025 6:57 AM EDT) [facility] Signature WBC 6.9 4.8 - 10.8 K/mcL LAB HEMETOLOGY METHOD 08/25/2025 7:[address] [facility] RBC 4.91 4.50 - 5.50 M/mcL LAB HEMETOLOGY METHOD 08/25/2025 7:[address] [facility] Hemoglobin 11.9(L) 13.5 - 17.5 g/dL LAB HEMETOLOGY METHOD 08/25/2025 7:[address] [facility] Hematocrit 39.0(L) 42.0 - 54.0 % LAB HEMETOLOGY METHOD 08/25/2025 7:[address] [facility] MCV 79.4 79.0 - 98.0 FL LAB HEMETOLOGY METHOD 08/25/2025 7:[address] [facility] MCH 24.2(L) 27.0 - 32.0 pcg LAB HEMETOLOGY METHOD 08/25/2025 7:[address] [facility] MCHC 30.5(L) 32.0 - 37.0 g/dL LAB HEMETOLOGY METHOD 08/25/2025 7:55 AM [facility] RDW 15.1(H) 11.0 - 15.0 % LAB HEMETOLOGY METHOD 08/25/2025 7:[address] [facility] Platelets 229 130 - 400 K/mcL LAB HEMETOLOGY METHOD 08/25/2025 7:[address] [facility] MPV 9.3 7.0 - 11.0 FL LAB HEMETOLOGY METHOD 08/25/2025 7:55 AM [facility] NRBC 0.0 <1.0 % LAB HEMETOLOGY METHOD 08/25/2025 7:[address] [facility] NRBC Absolute 0.00 <0.10 K/mcL LAB HEMETOLOGY METHOD 08/25/2025 7:[address] [facility] Blood Venous blood specimen / Unknown 08/25/2025 6:57 AM EDT 08/25/2025 7:34 AM EDT us Ricardo Goode MD LAB BLOOD ORDERABLES Final Resul t [facility] [address] [place] [address], * (ABNORMAL) Hepatic function panel (08/25/2025 6:57 AM EDT) [facility] Total Protein 6.3 6.0 - 8.0 g/dL LAB CHEMISTRY METHOD 08/25/2025 8:09 AM [facility] Albumin 3.0(L) 3.2 - 5.0 g/dL LAB CHEMISTRY METHOD 08/25/2025 8:09 AM [facility] Total Bilirubin 0.3 0.0 - 1.4 mg/dL LAB CHEMISTRY METHOD 08/25/2025 8:09 AM [facility] Bilirubin, Direct <0.1 0.0 - 0.3 mg/dL LAB CHEMISTRY METHOD 08/25/2025 8:09 AM [facility] Bilirubin, Indirect LAB CHEMISTRY METHOD 08/25/2025 8:09 AM [facility] Comment:Unable to calculate Indirect Bilirubin. ALT (SGPT) 25 10 - 60 unit/L LAB CHEMISTRY METHOD 08/25/2025 8:09 AM [facility] AST (SGOT) 25 10 - 42 unit/L LAB CHEMISTRY METHOD 08/25/2025 8:09 AM [facility] Comment:Hemolysis present Alkaline Phosphatase 134(H) 42 - 121 unit/L LAB CHEMISTRY METHOD 08/25/2025 8:09 AM [facility] Blood Venous blood specimen / Unknown 08/25/2025 6:57 AM EDT 08/25/2025 7:34 AM EDT us Ricardo Goode MD LAB BLOOD ORDERABLES Final Resul t [facility] [address] [place] [address], [place] [phone] * (ABNORMAL) Comprehensive metabolic panel (08/25/2025 6:57 AM EDT) Sodium 142 133 - 145 mmol/L LAB CHEMISTRY METHOD 08/25/2025 8:09 AM [facility] Potassium 4.7 3.5 - 5.5 mmol/L LAB CHEMISTRY METHOD 08/25/2025 8:09 AM [facility] Comment:Hemolysis present Chloride 107 96 - 110 mmol/L LAB CHEMISTRY METHOD 08/25/2025 8:09 AM [facility] CO2 29 21 - 32 mmol/L LAB CHEMISTRY METHOD 08/25/2025 8:09 AM [facility] Anion Gap 6 3 - 11 LAB CHEMISTRY METHOD 08/25/2025 8:09 AM [facility] Glucose 95 70 - 100 mg/dL LAB CHEMISTRY METHOD 08/25/2025 8:09 AM [facility] BUN 15 5 - 25 mg/dL LAB CHEMISTRY METHOD 08/25/2025 8:09 AM [facility] Creatinine 0.52(L) 0.70 - 1.30 mg/dL LAB CHEMISTRY METHOD 08/25/2025 8:09 AM [facility] eGFR 120 >=60 mL/min/1. 73m2 LAB CHEMISTRY METHOD 08/25/2025 8:09 AM [facility] Comment:Calculation based on the Chronic Kidney Disease Epidemiology Collaboration (CKD-EPI) equation refit without adjustment for race. BUN/Creatinine Ratio 28.8 LAB CHEMISTRY METHOD 08/25/2025 8:09 AM [facility] Calcium 8.5 8.5 - 10.5 mg/dL LAB CHEMISTRY METHOD 08/25/2025 8:09 AM [facility] AST (SGOT) 25 10 - 42 unit/L LAB CHEMISTRY METHOD 08/25/2025 8:09 AM [facility] Comment:Hemolysis present ALT (SGPT) 25 10 - 60 unit/L LAB CHEMISTRY METHOD 08/25/2025 8:09 AM [facility] Alkaline Phosphatase 134(H) 42 - 121 unit/L LAB CHEMISTRY METHOD 08/25/2025 8:[address] [facility] Total Protein 6.3 6.0 - 8.0 g/dL LAB CHEMISTRY METHOD 08/25/2025 8:09 AM [facility] Albumin 3.0(L) 3.2 - 5.0 g/dL LAB CHEMISTRY METHOD 08/25/2025 8:09 AM [facility] Total Bilirubin 0.3 0.0 - 1.4 mg/dL LAB CHEMISTRY METHOD 08/25/2025 8:09 AM [facility] Blood Venous blood specimen / Unknown 08/25/2025 6:57 AM EDT 08/25/2025 7:34 AM EDT Ricardo Goode MD LAB BLOOD ORDERABLES Final Resul t [facility] [address] [place] [address], [place] [phone] * (ABNORMAL) Lipid panel with reflex to direct LDL (07/31/2025 6:46 AM EDT) Cholesterol 109 0 - 200 mg/dL LAB CHEMISTRY METHOD 07/31/2025 8:33 AM [facility] Triglycerides 182(H) 0 - 150 mg/dL LAB CHEMISTRY METHOD 07/31/2025 8:[address] [facility] HDL 37(L) >=40 mg/dL LAB CHEMISTRY METHOD 07/31/2025 8:33 AM [facility] LDL Calculated 36 0 - 100 mg/dL LAB CHEMISTRY METHOD 07/31/2025 8:[address] [facility] Comment:Estimated LDL Calcul ated using equation: Total cholesterol - HDL cholesterol - (Triglycerides/5) VLDL Cholesterol Kishore 36.4 mg/dL LAB CHEMISTRY METHOD 07/31/2025 8:[address] [facility] Non HDL Chol. (LDL+VLDL) 72 <145 mg/dL LAB CHEMISTRY METHOD 07/31/2025 8:[address] [facility] Chol/HDL Ratio 2.9 0.0 - 4.4 LAB CHEMISTRY METHOD 07/31/2025 8:[address] [facility] Blood Venous blood specimen / Unknown 07/31/2025 6:46 AM EDT 07/31/2025 7:12 AM EDT us Ricardo Goode MD LAB BLOOD ORDERABLES Final Resul t [facility] [address] [place] [address], [place] [phone] from Last 3 Months Insurance MEDICARE MEDICAID - [place] Care Teams Library Information Technician Relationship Specialty Start Date End Date Ricardo Goode MD [address] [place] [address] [address] [place], [place] PCP - General Internal Medicine 12/18/24
--- OUTSIDE RECORDS SUMMARY | 2025-10-21 11:54 | XMS_ITS | Encounter Summary ---
Author Organization [facility] Address [address] [place] [address] Care Team Providers Care Patent Counsel Name Role Phone Ricardo Goode MD Primary Care Provider [phone] Encounter Details Date Type Department Care Team (Late st Contact Info) Description 03/26/[address] [facility] - Main Lab [address] [place] [address] Ricardo Goode MD [address] [place] [address] Dr [address] [place] Other obesity due to excess calories; Functional urinary incontinence; Restlessness and agitation; Unspecified urinary incontinence Social History Tobacco Use Types Packs/Day Years Used Date Smoking Tobacco: Never Assessed Sex and Gender Information Value Date Recorded Sex Assigned at Not on file Legal Sex Male 1:55 PM EST Gender Identity Not on file Sexual Orientation Not on file documented as of this encounter Plan of Treatment Not on file documented as of this encounter Procedures Procedure Name Priority Date/Time Associated Diagnosis Comments PROSTATE SPECIFIC ANTIGEN SCREEN Routine 03/26/2025 7:15 AM EDT Other obesity due to excess calories Functional urinary incontinence Restlessness and agitation Unspecified urinary incontinence THYROID STIMULATING HORMONE Routine 03/26/2025 7:15 AM EDT Other obesity due to excess calories Functional urinary incontinence Restlessness and agitation Unspecified urinary incontinence documented in this encounter Results * Prostate specific antigen screen (03/26/2025 7:15 AM EDT) PSA 2.16 0.00 - 4.00 ng/mL LAB CHEMISTRY METHOD 03/26/2025 12:04 PM EDT [facility] Blood Venous blood specimen / Unknown 03/26/2025 7:15 AM EDT 03/26/2025 7:55 AM EDT Narrative [facility] - 03/26/2025 12:04 PM EDT The Siemens Advia Centaur Chemiluminescent Immunoassay is used. Results obtained with different assay methods or kits cannot be used interchangeably. Results cannot be interpreted as absolute evidence of the presence or absence of malignant disease. Ricardo Goode MD LAB BLOOD ORDERABLES Final Resul t Performing Organization Address [facility]/ZIP Co de Phone Number [facility] [address] [place] [address], [place] [phone] * Thyroid stimulating hormone (03/26/2025 7:15 AM EDT) TSH 1.26 0.40 - 4.00 mcIU/mL LAB CHEMISTRY METHOD 03/26/2025 1:39 PM EDT [facility] Blood Venous blood specimen / Unknown 03/26/2025 7:15 AM EDT 03/26/2025 7:55 AM EDT us Ricardo Goode MD LAB BLOOD ORDERABLES Final Resul t Performing Organization Address [facility]/ZIP Co de Phone Number [facility] [address] [place] [address], [place] [phone] documented in this encounter Visit Diagnoses Diagnosis Other obesity due to excess calories Functional urinary incontinence Restlessness and agitation Other signs and symptoms involving emotional state Unspecified urinary incontinence documented in this encounter Care Teams Patent Counsel Relationship Specialty Start Date End Date Ricardo Goode MD [address] [place] [address] Dr [address] [place], [place] PCP - General Internal Medicine 12/18/24 documented as of this encounter
--- OUTSIDE RECORDS SUMMARY | 2025-10-21 11:54 | XMS_ITS | Encounter Summary ---
Author Organization [employer] Address [address] [place] [address] Care Team Providers Care Concrete Boom Operator Name Role Phone Ricardo Goode MD Primary Care Provider [phone] Encounter Details Date Type Department Care Team (Late st Contact Info) Description 03/04/2025 Lab Requisition [facility] - Main Lab [address] [place] [address] Ricardo Goode MD [address] [place] [address] Dr [address] [place] Altered mental status, unspecified; Unspecified fall, initial encounter Social History Tobacco Use Types Packs/Day Years [...] Procedure Name Priority Date/Time Associated Diagnosis Comments CBC WITH AUTO DIFFERENTIAL Routine 03/04/2025 7:02 AM EDT Altered mental status, unspecified Unspecified fall, initial encounter CBC AND DIFFERENTIAL Routine 03/04/2025 7:02 AM EDT Altered mental status, unspecified Unspecified fall, initial encounter COMPREHENSIVE METABOLIC PANEL Routine 03/04/2025 7:02 AM EDT Altered mental status, unspecified Unspecified fall, initial encounter documented in this encounter Results * (ABNORMAL) CBC auto differential (03/04/2025 7:02 AM EDT) WBC 6.8 4.8 - 10.8 K/[facility] LAB HEMETOLOGY METHOD 03/04/2025 7:47 AM EDT [facility] RBC 4.70 4.50 - 5.50 M/[facility] LAB HEMETOLOGY METHOD 03/04/2025 7:47 AM [facility] Hemoglobin 11.7(L) 13.5 - 17.5 g/dL LAB HEMETOLOGY METHOD 03/04/2025 7:47 AM [facility] Hematocrit 37.2(L) 42.0 - 54.0 % LAB HEMETOLOGY METHOD 03/04/2025 7:47 AM [facility] MCV 79.3 79.0 - 98.0 FL LAB HEMETOLOGY METHOD 03/04/2025 7:47 AM [facility] MCH 24.9(L) 27.0 - 32.0 pcg LAB HEMETOLOGY METHOD 03/04/2025 7:47 AM [facility] MCHC 31.5(L) 32.0 - 37.0 g/dL LAB HEMETOLOGY METHOD 03/04/2025 7:47 AM [facility] RDW 14.8 11.0 - 15.0 % LAB HEMETOLOGY METHOD 03/04/2025 7:47 AM [facility] Platelets 221 130 - 400 K/mcL LAB HEMETOLOGY METHOD 03/04/2025 7:47 AM [facility] MPV 10.6 7.0 - 11.0 FL LAB HEMETOLOGY METHOD 03/04/2025 7:47 AM [facility] NRBC 0.0 <1.0 % LAB HEMETOLOGY METHOD 03/04/2025 7:47 AM [facility] NRBC Absolute 0.00 <0.10 K/mcL LAB HEMETOLOGY METHOD 03/04/2025 7:47 AM [facility] Neutrophils Relative 56.5 % LAB HEMETOLOGY METHOD 03/04/2025 7:47 AM [facility] Lymphocytes Relative 27.1 % LAB HEMETOLOGY METHOD 03/04/2025 7:47 AM EDT [facility] Monocytes Relative 10.2 % LAB HEMETOLOGY METHOD 03/04/2025 7:47 AM [facility] Eosinophils Relative 5.5 % LAB HEMETOLOGY METHOD 03/04/2025 7:47 AM [facility] Basophils Relative 0.3 % LAB HEMETOLOGY METHOD 03/04/2025 7:47 [facility] Immature Granulocytes Relative 0.4 % LAB HEMETOLOGY METHOD 03/04/2025 7:47 [facility] Neutrophils Absolute 3.81 1.50 - 7.00 K/mcL LAB HEMETOLOGY METHOD 03/04/2025 7:47 AM [facility] Lymphocytes Absolute 1.83 1.00 - 5.00 K/mcL LAB HEMETOLOGY METHOD 03/04/2025 7:47 [facility] Monocytes Absolute 0.69 0.20 - 1.00 K/mcL LAB HEMETOLOGY METHOD 03/04/2025 7:47 AM [facility] Eosinophils Absolute 0.37 0.00 - 0.50 K/mcL LAB HEMETOLOGY METHOD 03/04/2025 7:47 AM [facility] Basophils Absolute 0.02 0.00 - 0.20 K/mcL LAB HEMETOLOGY METHOD 03/04/2025 7:47 AM [facility] Immature Granulocytes Absolute 0.03 0.00 - 0.03 K/mcL LAB HEMETOLOGY METHOD 03/04/2025 7:47 AM [facility] Blood Venous blood specimen / Unknown 03/04/2025 7:02 AM EDT 03/04/2025 7:40 AM EDT us Ricardo Goode MD LAB BLOOD ORDERABLES Final Resul t [facility] [address] [place] [address], * (ABNORMAL) Comprehensive metabolic panel (03/04/2025 7:02 AM EDT) Sodium 139 133 - 145 mmol/L LAB CHEMISTRY METHOD 03/04/2025 8:17 AM [facility] Potassium 4.2 3.5 - 5.5 mmol/L LAB CHEMISTRY METHOD 03/04/2025 8:17 AM [facility] Chloride 106 96 - 110 mmol/L LAB CHEMISTRY METHOD 03/04/2025 8:17 AM [facility] CO2 29 21 - 32 mmol/L LAB CHEMISTRY METHOD 03/04/2025 8:17 AM [facility] Anion Gap 4 3 - 11 LAB CHEMISTRY METHOD 03/04/2025 8:17 AM [facility] Glucose 86 70 - 100 mg/dL LAB CHEMISTRY METHOD 03/04/2025 8:17 AM [facility] BUN 10 5 - 25 mg/dL LAB CHEMISTRY METHOD 03/04/2025 8:17 AM [facility] Creatinine 0.50(L) 0.70 - 1.30 mg/dL LAB CHEMISTRY METHOD 03/04/2025 8:17 AM [facility] eGFR 121 >=60 mL/min/1. 73m2 LAB CHEMISTRY METHOD 03/04/2025 8:17 AM [facility] Comment:Calculation based on the Chronic Kidney Disease Epidemiology Collaboration (CKD-EPI) equation refit without adjustment for race. BUN/Creatinine Ratio 20.0 LAB CHEMISTRY METHOD 03/04/2025 8:17 AM [facility] Calcium 9.0 8.5 - 10.5 mg/dL LAB CHEMISTRY METHOD 03/04/2025 8:17 AM [facility] AST (SGOT) 19 10 - 42 unit/L LAB CHEMISTRY METHOD 03/04/2025 8:17 AM T [facility] ALT (SGPT) 25 10 - 60 unit/L LAB CHEMISTRY METHOD 03/04/2025 8:17 AM EDT [facility] Alkaline Phosphatase 147(H) 42 - 121 unit/L LAB CHEMISTRY METHOD 03/04/2025 8:17 AM EDT [facility] Total Protein 6.5 6.0 - 8.0 g/dL LAB CHEMISTRY METHOD 03/04/2025 8:17 AM EDT [facility] Albumin 3.1(L) 3.2 - 5.0 g/dL LAB CHEMISTRY METHOD 03/04/2025 8:17 AM [facility] Total Bilirubin 0.2 0.0 - 1.4 mg/dL LAB CHEMISTRY METHOD 03/04/2025 8:17 AM [facility] Blood Venous blood specimen / Unknown 03/04/2025 7:02 AM EDT 03/04/2025 7:40 AM EDT us Ricardo Goode MD LAB BLOOD ORDERABLES Final Resul t [facility] [address] [place] [address], documented in this encounter Visit Diagnoses Diagnosis Altered mental status, unspecified Unspecified fall, initial encounter documented in this encounter Care Teams Concrete Boom Operator Relationship Specialty Start Date End Date Ricardo Goode MD [address] [place] PCP - General Internal Medicine 12/18/24 documented as of this encounter
--- OUTSIDE RECORDS SUMMARY | 2025-10-21 11:54 | XMS_ITS | Encounter Summary ---
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 Suggest appropriate recollection if clinically indicated. 12/26/2024 10:[address] 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
--- OUTSIDE RECORDS SUMMARY | 2025-10-21 11:54 | XMS_ITS | Encounter Summary ---
Author Organization [facility] [facility] Address [address] [place] [address] Care Team Providers Care Sr. Manager Marketing Name Role Phone Ricardo Goode MD Primary Care Provider [phone] Encounter Details Date Type Department Care Team (Late st Contact Info) Description 12/24/2024 Lab Requisition [facility] - Main Lab [address] [place] [address] Ricardo Goode MD [address] [place] [address] [address] [place] Unspecified psychosis not due to a substance or known physiological condition (CMS/HCC V24, CMS/HCC V28) Social History Tobacco Use Types Packs/Day Years [...] Associated Diagnosis Comments COMPLETE BLOOD COUNT Routine 12/24/2024 6:57 AM EST Unspecified psychosis not due to a substance or known physiological condition (CMS/HCC) COMPREHENSIVE METABOLIC PANEL Routine 12/24/2024 6:57 AM EST Unspecified psychosis not due to a substance or known physiological condition (CMS/HCC) documented in this encounter Results * (ABNORMAL) Comprehensive metabolic panel (12/24/2024 6:57 AM EST) Sodium 137 133 - 145 mmol/L LAB CHEMISTRY METHOD 12/24/2024 8:28 AM EST [facility] Potassium 4.0 3.5 - 5.5 mmol/L LAB CHEMISTRY METHOD 12/24/2024 8:28 AM EST [facility] Chloride 105 96 - 110 mmol/L LAB CHEMISTRY METHOD 12/24/2024 8:28 AM [facility] CO2 28 21 - 32 mmol/L LAB CHEMISTRY METHOD 12/24/2024 8:28 AM [facility] Anion Gap 4 3 - 11 LAB CHEMISTRY METHOD 12/24/2024 8:28 AM [facility] Glucose 85 70 - 100 mg/dL LAB CHEMISTRY METHOD 12/24/2024 8:28 AM [facility] BUN 9 5 - 25 mg/dL LAB CHEMISTRY METHOD 12/24/2024 8:28 AM [facility] Creatinine 0.52(L) 0.70 - 1.30 mg/dL LAB CHEMISTRY METHOD 12/24/2024 8:28 AM [facility] eGFR 120 >=60 mL/min/1. 73m2 LAB CHEMISTRY METHOD 12/24/2024 8:28 AM [facility] Comment:Calculation based on the Chronic Kidney Disease Epidemiology Collaboration (CKD-EPI) equation refit without adjustment for race. BUN/Creatinine Ratio 17.3 LAB CHEMISTRY METHOD 12/24/2024 8:28 AM [facility] Calcium 8.8 8.5 - 10.5 mg/dL LAB CHEMISTRY METHOD 12/24/2024 8:28 AM [facility] AST (SGOT) 18 10 - 42 unit/L LAB CHEMISTRY METHOD 12/24/2024 8:28 AM [facility] ALT (SGPT) 28 10 - 60 unit/L LAB CHEMISTRY METHOD 12/24/2024 8:28 AM [facility] Alkaline Phosphatase 140(H) 42 - 121 unit/L LAB CHEMISTRY METHOD 12/24/2024 8:28 AM [facility] Total Protein 6.5 6.0 - 8.0 g/dL LAB CHEMISTRY METHOD 12/24/2024 8:28 AM [facility] Albumin 3.0(L) 3.2 - 5.0 g/dL LAB CHEMISTRY METHOD 12/24/2024 8:28 AM [facility] Total Bilirubin 0.2 0.0 - 1.4 mg/dL LAB CHEMISTRY METHOD 12/24/2024 8:28 AM [facility] Blood Venous blood specimen / Unknown 12/24/2024 6:57 AM EST 12/24/2024 7:51 AM EST us Ricardo Goode MD LAB BLOOD ORDERABLES Final Resul t [facility] [address] [place] [address], * (ABNORMAL) Complete blood count (12/24/2024 6:57 AM EST) WBC 6.8 4.8 - 10.8 K/mcL LAB HEMETOLOGY METHOD 12/24/2024 8:06 AM [facility] RBC 4.80 4.50 - 5.50 M/mcL LAB HEMETOLOGY METHOD 12/24/2024 8:06 AM [facility] Hemoglobin 11.6(L) 13.5 - 17.5 g/dL LAB HEMETOLOGY METHOD 12/24/2024 8:06 AM [facility] Hematocrit 37.2(L) 42.0 - 54.0 % LAB HEMETOLOGY METHOD 12/24/2024 8:06 AM [facility] MCV 77.0(L) 79.0 - 98.0 FL LAB HEMETOLOGY METHOD 12/24/2024 8:06 AM [facility] MCH 24.0(L) 27.0 - 32.0 pcg LAB HEMETOLOGY METHOD 12/24/2024 8:06 AM [facility] MCHC 31.2(L) 32.0 - 37.0 g/dL LAB HEMETOLOGY METHOD 12/24/2024 8:06 AM [facility] RDW 15.2(H) 11.0 - 15.0 % LAB HEMETOLOGY METHOD 12/24/2024 8:06 AM EST [facility] Platelets 248 130 - 400 K/mcL LAB HEMETOLOGY METHOD 12/24/2024 8:06 AM EST [facility] MPV 9.0 7.0 - 11.0 FL LAB HEMETOLOGY METHOD 12/24/2024 8:06 AM EST [facility] NRBC 0.0 <1.0 % LAB HEMETOLOGY METHOD 12/24/2024 8:06 AM EST [facility] NRBC Absolute 0.00 <0.10 K/mcL LAB HEMETOLOGY METHOD 12/24/2024 8:06 AM [facility] Blood Venous blood specimen / Unknown 12/24/2024 6:57 AM EST 12/24/2024 7:51 AM EST us Ricardo Goode MD LAB BLOOD ORDERABLES Final Resul t [facility] [address] [place] [address], documented in this encounter Visit Diagnoses Diagnosis 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 Manager Marketing Relationship Specialty Start Date End Date Ricardo Goode MD [address] [place] [address] [address] [place], [place] PCP - General Internal Medicine 12/18/24 documented as of this encounter
--- OUTSIDE RECORDS SUMMARY | 2025-10-21 11:54 | XMS_ITS | Encounter Summary ---
Author Organization [facility] Address [address] [place] [address] Care Team Providers Care Museum Host/Hostess Name Role Phone Ricardo Goode MD Primary Care Provider [phone] Encounter Details Date Type Department Care Team (Late st Contact Info) Description 06/03/2025 Lab Requisition [facility] [place] [facility] - Main Lab [address] [place] [address] Ricardo Goode MD [address] [place] [address] [address] [place], [place] Schizophrenia, unspecified (CMS/HCC V24, CMS/HCC V28) Social History Tobacco [...] Procedure Name Priority Date/Time Associated Diagnosis Comments HEPATIC FUNCTION PANEL Routine 06/03/2025 7:15 AM EDT Schizophrenia, unspecified (CMS/HCC V24, CMS/HCC V28) documented in this encounter Results * (ABNORMAL) Hepatic function panel (06/03/2025 7:15 AM EDT) Total Protein 6.2 6.0 - 8.0 g/dL LAB CHEMISTRY METHOD 06/03/2025 8:38 AM EDT [facility] Albumin 2.9(L) 3.2 - 5.0 g/dL LAB CHEMISTRY METHOD 06/03/2025 8:38 AM EDT [facility] Total Bilirubin 0.2 0.0 - 1.4 mg/dL LAB CHEMISTRY METHOD 06/03/2025 8:38 AM EDT [facility] Bilirubin, Direct <0.1 0.0 - 0.3 mg/dL LAB CHEMISTRY METHOD 06/03/2025 8:38 AM EDT [facility] Bilirubin, Indirect LAB CHEMISTRY METHOD 06/03/2025 8:38 AM EDT [facility] Comment:Unable to calculate Indirect Bilirubin. ALT (SGPT) 24 10 - 60 unit/L LAB CHEMISTRY METHOD 06/03/2025 8:38 AM EDT [facility] AST (SGOT) 14 10 - 42 unit/L LAB CHEMISTRY METHOD 06/03/2025 8:38 AM EDT [facility] Alkaline Phosphatase 141(H) 42 - 121 unit/L LAB CHEMISTRY METHOD 06/03/2025 8:38 AM T [facility] Blood Venous blood specimen / Unknown 06/03/2025 7:15 AM EDT 06/03/2025 7:54 AM EDT us Ricardo Goode MD LAB BLOOD ORDERABLES Final Resul t [facility] [address] [place] [address], documented in this encounter Visit Diagnoses Diagnosis Schizophrenia, unspecified (CMS/HCC V24, CMS/HCC V28) documented in this encounter Care Teams Museum Host/Hostess Relationship Specialty Start Date End Date Ricardo Goode MD [address] [place] PCP - General Internal Medicine 12/18/24 documented as of this encounter
--- OUTSIDE RECORDS SUMMARY | 2025-10-21 11:54 | XMS_ITS | Encounter Summary ---
Author Organization [employer] Address [address] [place] [address] Care Team Providers Care Program Admin Name Role Phone Ricardo Goode MD Primary Care Provider [phone] Encounter Details Date Type Department Care Team (Late st Contact Info) Description 08/25/2025 Lab Requisition [facility] - Main Lab [address] [place] [address] Ricardo Goode MD [address] [place] [address] Dr [address] [place], [place] Hyperlipidemia, unspecified; Acute rheumatic heart disease, unspecified Social History Tobacco Use Types Packs/Day Years [...] Hyperlipidemia, unspecified Acute rheumatic heart disease, unspecified documented in this encounter Results * (ABNORMAL) Complete blood count (08/25/2025 6:57 AM EDT) WBC 6.9 4.8 - 10.8 K/mcL LAB HEMETOLOGY METHOD 08/25/2025 7:55 AM EDT [facility] RBC 4.91 4.50 - 5.50 M/mcL LAB HEMETOLOGY METHOD 08/25/2025 7:55 AM [facility] Hemoglobin 11.9(L) 13.5 - 17.5 g/dL LAB HEMETOLOGY METHOD 08/25/2025 7:55 AM [facility] Hematocrit 39.0(L) 42.0 - 54.0 % LAB HEMETOLOGY METHOD 08/25/2025 7:55 AM [facility] MCV 79.4 79.0 - 98.0 FL LAB HEMETOLOGY METHOD 08/25/2025 7:55 AM [facility] MCH 24.2(L) 27.0 - 32.0 pcg LAB HEMETOLOGY METHOD 08/25/2025 7:55 AM [facility] MCHC 30.5(L) 32.0 - 37.0 g/dL LAB HEMETOLOGY METHOD 08/25/2025 7:55 AM [facility] RDW 15.1(H) 11.0 - 15.0 % LAB HEMETOLOGY METHOD 08/25/2025 7:55 AM [facility] Platelets 229 130 - 400 K/mcL LAB HEMETOLOGY METHOD 08/25/2025 7:55 AM [facility] MPV 9.3 7.0 - 11.0 FL LAB HEMETOLOGY METHOD 08/25/2025 7:55 AM [facility] NRBC 0.0 <1.0 % LAB HEMETOLOGY METHOD 08/25/2025 7:55 AM [facility] NRBC Absolute 0.00 <0.10 K/mcL LAB HEMETOLOGY METHOD 08/25/2025 7:55 AM [facility] Blood Venous blood specimen / Unknown 08/25/2025 6:57 AM EDT 08/25/2025 7:34 AM EDT us Ricardo Goode MD LAB BLOOD ORDERABLES Final Resul t Performing Organization Address City/[facility]/ZIP Co de Phone Number [facility] [address] [place] [address], [place] [phone] * (ABNORMAL) Hepatic function panel (08/25/2025 6:57 AM EDT) Total Protein 6.3 6.0 - 8.0 g/dL LAB CHEMISTRY METHOD 08/25/2025 8:09 AM EDT [facility] Albumin 3.0(L) 3.2 - 5.0 g/dL LAB CHEMISTRY METHOD 08/25/2025 8:09 AM EDT [facility] Total Bilirubin 0.3 0.0 - 1.4 mg/dL LAB CHEMISTRY METHOD 08/25/2025 8:09 AM [facility] Bilirubin, Direct <0.1 0.0 - 0.3 mg/dL LAB CHEMISTRY METHOD 08/25/2025 8:09 AM EDT [facility] Bilirubin, Indirect LAB CHEMISTRY METHOD 08/25/2025 8:09 AM EDT [facility] Comment:Unable to calculate Indirect Bilirubin. ALT (SGPT) 25 10 - 60 unit/L LAB CHEMISTRY METHOD 08/25/2025 8:09 AM [facility] AST (SGOT) 25 10 - 42 unit/L LAB CHEMISTRY METHOD 08/25/2025 8:09 AM T [facility] Comment:Hemolysis present Alkaline Phosphatase 134(H) 42 - 121 unit/L LAB CHEMISTRY METHOD 08/25/2025 8:09 AM [facility] Blood Venous blood specimen / Unknown 08/25/2025 6:57 AM EDT 08/25/2025 7:34 AM EDT us Ricardo Goode MD LAB BLOOD ORDERABLES Final Resul t Performing Organization Address City/[facility]/ZIP Co de Phone Number [facility] [address] [place] [address], [place] [phone] * (ABNORMAL) Comprehensive metabolic panel (08/25/2025 6:57 AM EDT) Sodium 142 133 - 145 mmol/L LAB CHEMISTRY METHOD 08/25/2025 8:09 AM [facility] Potassium 4.7 3.5 - 5.5 mmol/L LAB CHEMISTRY METHOD 08/25/2025 8:09 AM [facility] Comment:Hemolysis present Chloride 107 96 - 110 mmol/L LAB CHEMISTRY METHOD 08/25/2025 8:09 AM [facility] CO2 29 21 - 32 mmol/L LAB CHEMISTRY METHOD 08/25/2025 8:09 AM [facility] Anion Gap 6 3 - 11 LAB CHEMISTRY METHOD 08/25/2025 8:09 AM [facility] Glucose 95 70 - 100 mg/dL LAB CHEMISTRY METHOD 08/25/2025 8:09 AM [facility] BUN 15 5 - 25 mg/dL LAB CHEMISTRY METHOD 08/25/2025 8:09 AM [facility] Creatinine 0.52(L) 0.70 - 1.30 mg/dL LAB CHEMISTRY METHOD 08/25/2025 8:09 AM [facility] eGFR 120 >=60 mL/min/1. 73m2 LAB CHEMISTRY METHOD 08/25/2025 8:09 AM [facility] Comment:Calculation based on the Chronic Kidney Disease Epidemiology Collaboration (CKD-EPI) equation refit without adjustment for race. BUN/Creatinine Ratio 28.8 LAB CHEMISTRY METHOD 08/25/2025 8:09 AM [facility] Calcium 8.5 8.5 - 10.5 mg/dL LAB CHEMISTRY METHOD 08/25/2025 8:09 AM [facility] AST (SGOT) 25 10 - 42 unit/L LAB CHEMISTRY METHOD 08/25/2025 8:09 AM EDT [facility] Comment:Hemolysis present ALT (SGPT) 25 10 - 60 unit/L LAB CHEMISTRY METHOD 08/25/2025 8:09 AM EDT [facility] Alkaline Phosphatase 134(H) 42 - 121 unit/L LAB CHEMISTRY METHOD 08/25/2025 8:09 AM EDT [facility] Total Protein 6.3 6.0 - 8.0 g/dL LAB CHEMISTRY METHOD 08/25/2025 8:09 AM EDT [facility] Albumin 3.0(L) 3.2 - 5.0 g/dL LAB CHEMISTRY METHOD 08/25/2025 8:09 AM EDT [facility] Total Bilirubin 0.3 0.0 - 1.4 mg/dL LAB CHEMISTRY METHOD 08/25/2025 8:09 AM [facility] Blood Venous blood specimen / Unknown 08/25/2025 6:57 AM EDT 08/25/2025 7:34 AM EDT us Ricardo Goode MD LAB BLOOD ORDERABLES Final Resul t [facility] [address] [place] [address], documented in this encounter Visit Diagnoses Diagnosis Hyperlipidemia, unspecified Acute rheumatic heart disease, unspecified documented in this encounter Care Teams Program Admin Relationship Specialty Start Date End Date Ricardo Goode MD [address] [place] [address] [facility] [place] PCP - General Internal Medicine 12/18/24 documented as of this encounter
--- OUTSIDE RECORDS SUMMARY | 2025-10-21 11:54 | XMS_ITS | Encounter Summary ---
Author Organization [facility] Address [address] [place] [address] Care Team Providers Care Dialer Name Role Phone Ricardo Goode MD Primary Care Provider [phone] Encounter Details Date Type Department Care Team (Late st Contact Info) Description 07/31/2025 Lab Requisition [facility] - Main Lab [address] [place] [address] Ricardo Goode MD [address] [place] [address] [address] [place] Hyperlipidemia, unspecified Social History Tobacco Use Types Packs/Day [...] Procedure Name Priority Date/Time Associated Diagnosis Comments LIPID PANEL WITH REFLEX TO DIRECT LDL Routine 07/31/2025 6:46 AM EDT Hyperlipidemia, unspecified documented in this encounter Results * (ABNORMAL) Lipid panel with reflex to direct LDL (07/31/2025 6:46 AM EDT) Cholesterol 109 0 - 200 mg/dL LAB CHEMISTRY METHOD 07/31/2025 8:[address] [facility] Triglycerides 182(H) 0 - 150 mg/dL LAB CHEMISTRY METHOD 07/31/2025 8:[address] [facility] HDL 37(L) >=40 mg/dL LAB CHEMISTRY METHOD 07/31/2025 8:[address] [facility] LDL Calculated 36 0 - 100 mg/dL LAB CHEMISTRY METHOD 07/31/2025 8:[address] [facility] Comment:Estimated LDL Calcul [...] Resul t [facility] [address] [place] [address], documented in this encounter Visit Diagnoses Diagnosis Hyperlipidemia, unspecified documented in this encounter Care Teams Dialer Relationship Specialty Start Date End Date Ricardo Goode MD [address] [place] PCP - General Internal Medicine 12/18/24 documented as of this encounter
--- OUTSIDE RECORDS SUMMARY | 2025-10-21 11:54 | XMS_ITS | Encounter Summary ---
Author Organization [facility] Address [address] [place] [address] Care Team Providers Care Barrel Straightener Name Role Phone Ricardo Goode MD Primary Care Provider Encounter Details Date Type Department Care Team (Late st Contact Info) Description 03/03/2025 Lab Requisition [facility] - Main Lab [address] [place] [address] Ricardo Goode MD [address] [place] [address] [address] [place] Altered mental status, unspecified Social History Tobacco Use Types Packs/Day [...] Procedure Name Priority Date/Time Associated Diagnosis Comments URINALYSIS WITH REFLEX MICROSCOPIC AND CULTURE Routine 03/03/2025 7:45 PM EDT Altered mental status, unspecified STOKES URINE CULTURE TUBE Routine 03/03/2025 7:45 PM EDT Altered mental status, unspecified URINALYSIS WITH REFLEX MICROSCOPIC AND CULTURE Routine 03/03/2025 7:45 PM EDT Altered mental status, unspecified CULTURE URINE Routine 03/03/2025 7:45 PM EDT Altered mental status, unspecified documented in this encounter Results * Culture urine (03/03/2025 7:45 PM EDT) Culture, Urine <10,000 CFU/mL gram positive cocci, insignificant count, no further workup 03/04/2025 1:49 PM EDT [facility] Urine Urine specimen obtained by clean catch procedure / Unknown 03/03/2025 7:45 PM EDT 03/03/2025 9:29 PM EDT us Ricardo Goode MD LAB MICROBIOLOGY - GENERAL ORDER GENNARO Final Result [facility] [address] [place] [address], [place] [phone] * (ABNORMAL) Urinalysis with reflex microscopic and culture (03/03/2025 7:45 PM EDT) Specific [place] Urine 1.017 1.003 - 1.030 LAB URINALYSIS - AUTOMATED METHOD 03/03/2025 9:29 PM [facility] pH, Urine 6.0 5.0 - 8.0 pH LAB URINALYSIS - AUTOMATED METHOD 03/03/2025 9:29 PM [facility] Leukocytes, Urine Trace(A) Negative LAB URINALYSIS - AUTOMATED METHOD 03/03/2025 9:29 PM [facility] Nitrite, Urine Negative Negative LAB URINALYSIS - AUTOMATED METHOD 03/03/2025 9:29 PM [facility] Protein, Urine Negative <=Trace mg/dL LAB URINALYSIS - AUTOMATED METHOD 03/03/2025 9:29 PM [facility] Glucose, Urine Negative Negative mg/dL LAB URINALYSIS - AUTOMATED METHOD 03/03/2025 9:29 PM [facility] Ketones, Urine Negative Negative mg/dL LAB URINALYSIS - AUTOMATED METHOD 03/03/2025 9:29 PM [facility] Urobilinogen, Urine 0.2 0.2 - 1.0 mg/dL LAB URINALYSIS - AUTOMATED METHOD 03/03/2025 9:29 PM [facility] Bilirubin, Urine Negative Negative LAB URINALYSIS - AUTOMATED METHOD 03/03/2025 9:29 PM EDT [facility] Blood, Urine Negative Negative LAB URINALYSIS - AUTOMATED METHOD 03/03/2025 9:29 PM EDT [facility] RBC, Urine 0.6 0 - 4 /HPF LAB URINALYSIS - AUTOMATED METHOD 03/03/2025 9:29 PM EDT [facility] WBC, Urine 0.3 0 - 4 /HPF LAB URINALYSIS - AUTOMATED METHOD 03/03/2025 9:29 PM EDT [facility] Squamous Epithelial, Urine 2 0 - 60 /LPF LAB URINALYSIS - AUTOMATED METHOD 03/03/2025 9:29 PM EDT [facility] Bacteria, Urine Negative Negative /HPF LAB URINALYSIS - AUTOMATED METHOD 03/03/2025 9:29 PM EDT [facility] Hyaline Casts, Urine 0.4 0 - 3 /LPF LAB URINALYSIS - AUTOMATED METHOD 03/03/2025 9:29 PM EDT [facility] Urine Urine specimen obtained by clean catch procedure / Unknown 03/03/2025 7:45 PM EDT 03/03/2025 9:15 PM EDT us Ricrado Goode MD LAB URINE ORDERABLES Final Resul t Performing Organization Address [facility]/State/ZIP Co de Phone Number [facility] [address] [place] [address], [place] [phone] * Stokes urine culture tube (03/03/2025 7:45 PM EDT) Extra Tube Hold for add-ons. 03/03/2025 11:01 PM EDT [facility] Comment:Auto resulted. Urine Urine specimen obtained by clean catch procedure / Unknown 03/03/2025 7:45 PM EDT 03/03/2025 9:15 PM EDT us Ricardo Goode MD LAB URINE ORDERABLES Final Resul t [facility] [address] [place] [address], documented in this encounter Visit Diagnoses Diagnosis Altered mental status, unspecified documented in this encounter Care Teams Barrel Straightener Relationship Specialty Start Date End Date Ricardo Goode MD [address] [place] [address] [address] [place] PCP - General Internal Medicine 12/18/24 documented as of this encounter
--- OUTSIDE RECORDS SUMMARY | 2025-10-21 11:55 | XMS_ITS | Encounter Summary ---
[facility] Address [address] [place] [address] Care Team Providers Care Vendor Relationship Manager Name Role Phone Ricardo Goode MD Primary Care Provider [phone] Encounter Details Date Type Department Care Team (Late st Contact Info) Description 10/09/2024 Lab Requisition [facility] - Main Lab [address] [place] [address] Ricardo Goode MD [address] [place] [address] [address] [place] Post traumatic seizures (CMS/HCC V24, CMS/HCC V28) Social History Tobacco [...] Associated Diagnosis Comments COMPLETE BLOOD COUNT Routine 10/09/2024 7:45 AM EST Post traumatic seizures (CMS/HCC) COMPREHENSIVE METABOLIC PANEL Routine 10/09/2024 7:45 AM EST Post traumatic seizures (CMS/HCC) documented in this encounter Results * (ABNORMAL) Complete blood count (10/09/2024 7:45 AM EST) WBC 6.2 4.8 - 10.8 K/mcL LAB HEMETOLOGY METHOD 10/09/2024 9:14 AM EST [facility] RBC 4.80 4.50 - 5.50 M/mcL LAB HEMETOLOGY METHOD 10/09/2024 9:14 AM EST [facility] Hemoglobin 11.6(L) 13.5 - 17.5 g/dL LAB HEMETOLOGY METHOD 10/09/2024 9:14 AM [facility] Hematocrit 37.4(L) 42.0 - 54.0 % LAB HEMETOLOGY METHOD 10/09/2024 9:14 AM [facility] MCV 78.2(L) 79.0 - 98.0 FL LAB HEMETOLOGY METHOD 10/09/2024 9:14 AM [facility] MCH 24.3(L) 27.0 - 32.0 pcg LAB HEMETOLOGY METHOD 10/09/2024 9:14 AM [facility] MCHC 31.0(L) 32.0 - 37.0 g/dL LAB HEMETOLOGY METHOD 10/09/2024 9:14 AM [facility] RDW 15.8(H) 11.0 - 15.0 % LAB HEMETOLOGY METHOD 10/09/2024 9:14 AM [facility] Platelets 207 130 - 400 K/mcL LAB HEMETOLOGY METHOD 10/09/2024 9:14 AM [facility] MPV 9.6 7.0 - 11.0 FL LAB HEMETOLOGY METHOD 10/09/2024 9:14 AM [facility] NRBC 0.0 <1.0 % LAB HEMETOLOGY METHOD 10/09/2024 9:14 AM [facility] NRBC Absolute 0.00 <0.10 K/mcL LAB HEMETOLOGY METHOD 10/09/2024 9:14 AM [facility] Blood Venous blood specimen / Unknown 10/09/2024 7:45 AM EST 10/09/2024 8:50 AM EST us Ricardo Goode MD LAB BLOOD ORDERABLES Final Resul t [facility] [address] [place] [address], * (ABNORMAL) Comprehensive metabolic panel (10/09/2024 7:45 AM EST) Sodium 143 133 - 145 mmol/L LAB CHEMISTRY METHOD 10/09/2024 9:19 AM [facility] Potassium 4.3 3.5 - 5.5 mmol/L LAB CHEMISTRY METHOD 10/09/2024 9:19 AM [facility] Comment:Hemolysis present Chloride 110 96 - 110 mmol/L LAB CHEMISTRY METHOD 10/09/2024 9:19 AM [facility] CO2 28 21 - 32 mmol/L LAB CHEMISTRY METHOD 10/09/2024 9:19 AM [facility] Anion Gap 5 3 - 11 LAB CHEMISTRY METHOD 10/09/2024 9:19 AM [facility] Glucose 88 70 - 100 mg/dL LAB CHEMISTRY METHOD 10/09/2024 9:19 AM [facility] BUN 13 5 - 25 mg/dL LAB CHEMISTRY METHOD 10/09/2024 9:19 AM [facility] Creatinine 0.60(L) 0.70 - 1.30 mg/dL LAB CHEMISTRY METHOD 10/09/2024 9:19 AM [facility] eGFR 115 >=60 mL/min/1. 73m2 LAB CHEMISTRY METHOD 10/09/2024 9:19 AM [facility] Comment:Calculation based on the Chronic Kidney Disease Epidemiology Collaboration (CKD-EPI) equation refit without adjustment for race. BUN/Creatinine Ratio 21.7 LAB CHEMISTRY METHOD 10/09/2024 9:19 AM [facility] Calcium 8.8 8.5 - 10.5 mg/dL LAB CHEMISTRY METHOD 10/09/2024 9:19 AM [facility] AST (SGOT) 25 10 - 42 unit/L LAB CHEMISTRY METHOD 10/09/2024 9:19 AM [facility] Comment:Hemolysis present ALT (SGPT) 23 10 - 60 unit/L LAB CHEMISTRY METHOD 10/09/2024 9:19 AM EST [facility] Alkaline Phosphatase 146(H) 42 - 121 unit/L LAB CHEMISTRY METHOD 10/09/2024 9:19 AM EST [facility] Total Protein 6.1 6.0 - 8.0 g/dL LAB CHEMISTRY METHOD 10/09/2024 9:19 AM [facility] Albumin 2.9(L) 3.2 - 5.0 g/dL LAB CHEMISTRY METHOD 10/09/2024 9:19 AM [facility] Total Bilirubin 0.3 0.0 - 1.4 mg/dL LAB CHEMISTRY METHOD 10/09/2024 9:19 AM [facility] Blood Venous blood specimen / Unknown 10/09/2024 7:45 AM EST 10/09/2024 8:50 AM EST us Ricardo Goode MD LAB BLOOD ORDERABLES Final Resul t [facility] [address] [place] [address], documented in this encounter Visit Diagnoses Diagnosis Post traumatic seizures (CMS/HCC V24, CMS/HCC V28) Post traumatic seizures documented in this encounter Care Teams Vendor Relationship Manager Relationship Specialty Start Date End Date Ricardo Goode MD [address] [place] [address] [address] [place] PCP - General Internal Medicine 12/18/24 documented as of this encounter
[2025-10-21 14:29] VITALS: BP 109/69; PULSE 91; RESP 16; TEMP 36.4; O2SAT 95
== END 2025-10-21 14:31 ==
PROVIDERS: Emergency Provider Emergency Medicine; PCP Hospitalist
DX: M25.511 Pain in right shoulder (principal); G89.29 Other chronic pain; J44.9 Chronic obstructive pulmonary disease, unspecified
CPT/HCPCS: 73030; 93005; 99283; 99284

== ENCOUNTER → 2025-10-21 09:37 | Outpatient (BNV) | payer MEDICARE, MEDICAID, SELFPAY | PROVIDERS: Emergency Provider Emergency Medicine; PCP Hospitalist; Visit Provider Internal Medicine | DX: M25.519 Pain in unspecified shoulder (principal) | CPT/HCPCS: 93010 ==

== ENCOUNTER → 2025-10-21 09:37 | Outpatient (BNV) | payer MEDICARE, MEDICAID, SELFPAY | PROVIDERS: Emergency Provider Emergency Medicine; PCP Hospitalist; Visit Provider Radiology Diagnostic Radiology | DX: M19.011 Primary osteoarthritis, right shoulder (principal) | CPT/HCPCS: 73030 ==